=== PATIENT | female | born 1955 | race Caucasian/White ===

== ENCOUNTER → 2018-07-20 07:45 | Outpatient (CLI) | payer BC, SELFPAY ==
--- NOTE | 2018-07-20 07:59 | CT_ITS ---
CT lung screening EXAM: CT LUNG LOW DOSE WO CONTRAST HISTORY: 45 pack-year smoking history, asymptomatic for lung cancer ITS.REASON: NICOTINE DEPENDENCE ORDERING PHYSICIAN: Wilmar Franco MD PATIENT AGE: 62 years COMPARISON: None TECHNIQUE: The exam was performed on a GE Light Speed [address] scanner using 2.90 mGy CTDI. A low dose helical CT CHEST was performed on a multi-detector scanner. All CT scans at the facility use one or more dose reduction, viz: automated exposure control, ma/kV adjustment per patient size (including targeted exams where dose is matched to indication, i.e. head), or iterative reconstruction technique. The LDCT was performed in a facility that meets the criteria for the screening program. Data regarding this exam was submitted to ACR which is an approved registry. The order for this exam indicates that it came as a result of a lung cancer screening counseling shard decision-making visit that included all the elements required of such a visit including smoking cessation. The radiologist interpreting this exam meets the CMS criteria for the LDCT lung cancer screening program. The exam is reported using the Lung-RADS classification scale and reported to the ACR registry. NOTE: This study was performed for the specific purposes of lung cancer screening and is not an alternative to diagnostic chest CT. RADIATION DOSE: CTDI vol(CT dose Index-volume) = 2.90mG DLP (Dose Length Product) = 95.34 mGcm FINDINGS: Centrilobular emphysema with scattered areas of scarring and scattered calcified granulomas. Atelectasis or fibrosis is present in the lung bases. Small axillary lymph nodes and small mediastinal lymph nodes are present. There is minimal thickening of the pericardium. Upper abdominal images show small amount of air anterior to the left lobe of the liver possibly due to bowel interposition. CT abdomen may confirm. IMPRESSION: 1. Lung RADS Category: 2, benign 2. Other findings: Centrilobular emphysema. Air density anterior to the left lobe of the liver which may be due to bowel interposition in this nonacute exam and may be confirmed with CT abdomen if clinically warranted RECOMMENDATIONS: 12 month LDCT follow-up
--- NOTE | 2018-07-20 08:01 | XR_ITS ---
XR DEXA axial skeleton HISTORY: ITS.REASON: OSTEOPENIA ORDERING PHYSICIAN: Wilmar Franco MD PATIENT AGE: 62 years COMPARISON: None FINDINGS: The BMD measured at the Total Right femoral neck is 0.691 g/cm squared with a T score of -2.5. This is considered Osteoporotic according to the World Health Organization criteria. Fracture risk is High. Treatment is advised. The L1 L4 density has a T score of -2.3. IMPRESSION: Osteoporosis with high fracture risk. Treatment is advised. Suggest follow-up exam July 2019
== END ==
PROVIDERS: PCP Family Medicine; Visit Provider Family Medicine
DX: Z12.2 Encounter for screening for malignant neoplasm of respiratory organs (principal); Z87.891 Personal history of nicotine dependence; M85.89 Other specified disorders of bone density and structure, multiple sites
CPT/HCPCS: 77080

== ENCOUNTER → 2019-10-29 15:06 | Outpatient (CLI) | payer BC, SELFPAY ==
[2019-10-29 17:06] LABS: T4 (Thyroxine) 7.3 ug/dl (5.53-11.0)
[2019-10-29 18:14] LABS: 25-OH Vitamin D, Total 50.3 ng/mL (30-100)
[2019-10-31 09:12] LABS: Triiodothyronine (T3) Total 103 ng/dL (71-180)
[2019-10-31 10:59] LABS: Vitamin B12 435 pg/mL (232-1245)
== END ==
PROVIDERS: Visit Provider Clinical Nurse Specialist Psychiatric/Mental Health
DX: F33.1 Major depressive disorder, recurrent, moderate (principal)
CPT/HCPCS: 36415; 82306; 82607; 84436; 84443; 84480; 84481

== ENCOUNTER → 2020-10-21 15:35 | Outpatient (POV) | payer BC, SELFPAY | PROVIDERS: Visit Provider Dermatology | DX: Z00.00 Encounter for general adult medical examination without abnormal findings (principal) ==

== ENCOUNTER → 2020-10-24 15:03 | Outpatient (CLI) | payer BC, SELFPAY ==
--- NOTE | 2020-10-24 15:11 | US_ITS ---
PROCEDURE: US EXTREMITY LT LIMITED CLINICAL INDICATION: MASS OF LT SHOULDER COMPARISON: No exams were available for comparison FINDINGS: Ultrasound of the left shoulder at site of palpable abnormality shows no discrete cyst or solid mass. No focal fluid collection. No abnormal vascularity. If there is persistent concern clinically for a left shoulder mass, I would suggest MRI left shoulder with and without IV contrast. IMPRESSION: Normal ultrasound of the left shoulder region at site of palpable abnormality with no discrete cyst or solid mass identified. See comment above. Dictated by: Андрей Lopez MD 10/24/2020 16:42 Андрей Lopez MD in [place] 10/24/2020 16:42
== END ==
PROVIDERS: PCP Nurse Practitioner Family; Visit Provider Physician Assistant
DX: R22.30 Localized swelling, mass and lump, unspecified upper limb (principal)
CPT/HCPCS: 76882

== ENCOUNTER → 2020-12-10 13:36 | Outpatient (CLI) | payer BC, SELFPAY ==
--- NOTE | 2020-12-10 13:42 | XR_ITS ---
PROCEDURE: XR SHOULDER LT MIN 2V CLINICAL INDICATION: left shoulder pain COMPARISON: No exams were available for comparison FINDINGS: No fracture or dislocation. No lytic or blastic change. There is normal mineralization. The joint spaces are well-preserved. No significant degenerative/arthritic changes. No erosive changes evident. Other findings:Small subcortical cyst noted at the greater tuberosity region at 4 mm. Minimal sclerosis at the greater tuberosity level. IMPRESSION: No acute findings. Dictated by: Nimesh Menjivar MD 12/10/2020 15:06 Nimesh Menjivar MD in [place] 12/10/2020 15:06
== END ==
PROVIDERS: PCP Family Medicine; Visit Provider Orthopaedic Surgery
DX: M25.512 Pain in left shoulder (principal)
CPT/HCPCS: 73030

== ENCOUNTER → 2021-07-25 10:01 | Outpatient (CLI) | payer SELFPAY ==
[2021-07-25 10:59] LABS: Basophils # 0.1 K/mm3 (0-0.2); Basophils % 0.9 % (0.1-2.0); Eosinophils # 0.1 K/mm3 (0.0-0.4); Eosinophils % 1.7 % (0.1-12.0); Hematocrit 43.6 % (37.0-47.0); Lymphocytes # 2.4 K/mm3 (0.7-4.5); Lymphocytes % 32.1 % (10-50); Mean Corpuscular HGB Conc 32.1 g/dL (31.8-35.4); Mean Corpuscular Hemoglobin 31.8 pg (27.0-31.2); Mean Platelet Volume 8.8 fl (7.4-10.4); Monocytes # 0.5 K/mm3 (0.1-1.0); Monocytes % 5.9 % (1.7-9.3); Neutrophils # 4.5 K/mm3 (1.8-7.8); Neutrophils % 59.4 % (37.0-80.0); Platelet Count 344 K/mm3 (142-424); Red Blood Count 4.41 M/mm3 (4.20-5.40); Red Cell Distribution Width 14.5 % (11.5-17.5); White Blood Count 7.6 K/mm3 (4.8-10.8)
[2021-07-25 11:44] LABS: Hemoglobin A1C 5.5 % (4.0-6.0)
[2021-07-25 11:56] LABS: Alanine Aminotransferase 18 U/L (12-78); Albumin Level 4.1 g/dl (3.5-5.0); Albumin/Globulin Ratio 1.6 (1.1-1.8); Alkaline Phosphatase 81 U/L (38-126); Anion Gap 7.2 mEq/L (5-15); Aspartate Amino Transferase 26 U/L (14-36); Bilirubin,Direct 0.1 mg/dl (0.0-0.4); Bilirubin,Indirect 0.4 mg/dL (0.0-0.9); Bilirubin,Total 0.5 mg/dl (0.2-1.3); Bilirubin,Unconjugated 0.5 mg/dL (0.0-1.1); Blood Urea Nitrogen 17 mg/dl (7-17); Calcium 9.5 mg/dl (8.4-10.2); Carbon Dioxide 30 mmol/L (22.0-30.0); Chloride 105 mmol/L (98-107); Chol/HDL Ratio 2.3 (1-3.5); Cholesterol 170 mg/dl (140-200); Estimated Glomerular Filt Rate 101 ml/min (>60); GFR (African American) 122 ML/MIN (>60); Globulin 2.5 g/dL (1.3-3.2); Glucose 88 mg/dl (74-100); HDL Cholesterol 75 mg/dl (40-60); Potassium 5.2 mmoL/L (3.5-5.1); Sodium 137 mmol/L (136-145); Total Protein,Serum 6.6 g/dl (6.3-8.2); Triglycerides 74 mg/dl (30-150); VLDL Cholesterol 15 mg/dL (0-40)
[2021-07-25 12:07] LABS: Direct LDL Cholesterol 58.36 mg/dL (100-129); Valproic Acid, (Depakene) 19.9 ug/ml (50-100)
[2021-07-25 12:13] LABS: 25-OH Vitamin D, Total 64.2 ng/mL (30-100)
[2021-07-25 12:14] LABS: T4 (Thyroxine) 5.7 ug/dl (5.53-11.0)
[2021-07-25 12:28] LABS: Thyroid Stimulating Hormone 1.06 uIU/mL (0.465-4.68)
[2021-07-25 12:46] LABS: Vitamin B12 969 pg/mL (239-931)
[2021-07-25 18:03] LABS: Iron 170 ug/dL (37-170)
[2021-07-26 07:02] LABS: Prolactin 16.7 ng/mL (4.8-23.3)
== END ==
PROVIDERS: PCP Family Medicine; Visit Provider Registered Nurse Emergency
DX: F33.1 Major depressive disorder, recurrent, moderate (principal)
CPT/HCPCS: 36415; 80053; 80061; 80076; 80164; 82306; 82607; 83036; 83540; 84146; 84436; 84443; 85025

== ENCOUNTER → 2022-05-20 16:30 | Outpatient (CLI) | payer OTHER, SELFPAY ==
--- NOTE | 2022-05-20 | XR_ITS ---
PROCEDURE INFORMATION: Exam: XR Sacrum and Coccyx, 2 or More Views Exam date and time: 05/20/2022 4:42 PM Age: 66 years old Clinical indication: Pain in coccyx area; Additional info: Coccygeal pain TECHNIQUE: Imaging protocol: XR of the sacrum and coccyx, 2 or more views. COMPARISON: ABDPELW CT ABD PELVIS W/ CONTRAST 02/19/2016 9:37 AM FINDINGS: Bones/joints: Healed right pubic rami fractures. Grade 2 anterolisthesis of L5 over S1 has progressed attributed to a chronic bilateral pars defect. No visible acute fracture or dislocation. Soft tissues: Normal. IMPRESSION: Progression of anterolisthesis of L5 over S1 attributed to a chronic bilateral pars defect. No visible acute fracture or dislocation.
== END ==
PROVIDERS: PCP Physician Assistant; Visit Provider Physician Assistant
DX: M53.3 Sacrococcygeal disorders, not elsewhere classified (principal)
CPT/HCPCS: 72220

== ENCOUNTER → 2022-07-10 09:11 | Outpatient (CLI) | payer OTHER, SELFPAY ==
--- NOTE | 2022-07-10 09:14 | MR_ITS ---
PROCEDURE INFORMATION: Exam: MR Lumbar Spine Without Contrast Exam date and time: 07/10/2022 9:51 AM Age: 66 years old Clinical indication: Low back pain; Additional info: Lower back pain. TECHNIQUE: Imaging protocol: Magnetic resonance imaging of the lumbar spine without contrast. COMPARISON: XR SACRUM COCCYX MIN 2V 05/20/2022 4:42 PM FINDINGS: Bones/joints: Grade 2 anterolisthesis of L5 over S1 is re-identified attributed to a chronic bilateral pars defect. Focal retrolisthesis of L1 over L2 likely degenerative. Vertebral body heights are maintained. Discogenic changes noted at multiple levels. No marrow replacing process. Spinal cord: Conus medullaris and cauda equina nerve roots are unremarkable T12-L1: Central disc protrusion without significant spinal canal stenoses.There is severe bilateral neural foraminal narrowing. L1-L2: Diffuse disc bulge and facet arthropathy without significant spinal canal stenosis.There is severe bilateral neural foraminal narrowing. L2-L3: Diffuse disc bulge and facet arthropathy without significant spinal canal stenosis. There is moderate bilateral neural foraminal narrowing. L3-L4: Diffuse disc bulge and facet arthropathy produce mild spinal canal stenosis. There is moderate bilateral neural foraminal narrowing. L4-L5: Diffuse disc bulge and facet arthropathy without significant spinal canal stenosis. There is mild bilateral neural foraminal narrowing. L5-S1: Uncovering of the disc diffuse disc bulge and facet arthropathy without significant spinal canal stenosis.There is severe bilateral neural foraminal narrowing. Soft tissues: Unremarkable. IMPRESSION: Multilevel degenerative changes involving predominantly the neural foramina most significant at T12-L1 L1-L2 and L5-S1 producing high-grade stenoses. Grade 2 anterolisthesis of L5 over S1
--- NOTE | 2022-07-10 09:14 | MR_ITS ---
PROCEDURE INFORMATION: Exam: MR Pelvis Without Contrast Exam date and time: 07/10/2022 9:51 AM Age: 66 years old Clinical indication: Other: Tail bone pain; Additional info: Lumbar pain. Hurts to sit. TECHNIQUE: Imaging protocol: Magnetic resonance imaging of the pelvis without contrast. COMPARISON: ABDPELW CT ABD PELVIS W/ CONTRAST 02/19/2016 9:37 AM FINDINGS: Intraperitoneal space: Trace pelvic free fluid without identifiable source. Chronic grade 2 anterolisthesis of L5 over S1 attributed to a bilateral pars defect. Reproductive: Unremarkable. Bones/joints: No marrow replacing process. Soft tissues: Soft tissues are unremarkable. No decubitus ulcer. Stomach and bowel: Scattered colonic diverticula without acute inflammatory change. IMPRESSION: No marrow replacing process.
== END ==
LOC: RAD 09:11
PROVIDERS: PCP Orthopaedic Surgery; Visit Provider Orthopaedic Surgery
DX: M54.50 Low back pain, unspecified (principal); M53.3 Sacrococcygeal disorders, not elsewhere classified
CPT/HCPCS: 72148; 72195; 76376

== ENCOUNTER 2023-05-16 15:36 | Outpatient (CLI) | payer OTHER, SELFPAY ==
--- NOTE | 2023-05-16 15:46 | ECG_ITS ---
APPROVED REPORT Exam: Resting ECG HR:75 bpm ECG Measurements Heart Rate 75 AXES WI 172 P 83 QRSd 173 QRS 91 QT 415 T -9 QTc 444 Conclusion SINUS RHYTHM BORDERLINE RIGHT AXIS DEVIATION [QRS AXIS > 90] INTRAVENTRICULAR CONDUCTION DELAY [130+ ms QRS DURATION] ABNORMAL ECG UNCONFIRMED REPORT Electronically signed by : Dudley Nicholas MD 05/16/2023 17:46:28
--- NOTE | 2023-05-16 15:50 | XR_ITS ---
FINAL REPORT CLINICAL HISTORY: NEAR SYNCOPE smoker x 20 yrs FINDINGS: 2 views of the chest were obtained . The heart is normal in size. The mediastinum is within normal limits. The lungs are clear. There is no pneumothorax. Osseous structures are unremarkable. IMPRESSION: No acute cardiopulmonary process. Reviewed, Interpreted and Dictated by Mani Gilmore III, MD Transcribed by Susie Johnson Authenticated and [facility]
== END 2023-05-16 23:59 ==
PROVIDERS: PCP Nurse Practitioner Family; Visit Provider Nurse Practitioner Family
DX: R55 Syncope and collapse (principal)
CPT/HCPCS: 71046; 93005

== ENCOUNTER 2023-06-10 14:08 | Outpatient (CLI) | payer MEDICARE, SELFPAY ==
--- NOTE | 2023-06-10 14:10 | MM_ITS ---
PROCEDURE INFORMATION: Exam: MG Bilateral Screening 3D Mammography Exam date and time: 06/10/2023 2:21 PM Age: 67 years old Clinical indication: Screening. No family history of breast cancer. TECHNIQUE: Imaging protocol: Bilateral Screening tomosynthesis and 2D mammography including computer-aided detection (CAD) when performed. COMPARISON: 1. MG DMSB DIG MAMM-SCREEN OMAR 02/09/2016 10:23 AM 2. MG DMSB DIGITAL MAMM-SCREEN BILATERAL 08/29/2012 10:30 AM FINDINGS: MAMMOGRAPHY: Breast composition: The breasts are heterogeneously dense, which may obscure small masses. Mass: None. Architectural distortion: None. Calcifications: No suspicious calcifications. Asymmetric density: None. Skin thickening: None. Axillary adenopathy: None. IMPRESSION: No mammographic evidence of malignancy. Annual screening is recommended unless otherwise clinically indicated. ASSESSMENT: BI-RADS Category 1: Negative
== END 2023-06-10 23:59 ==
LOC: RAD 14:08
PROVIDERS: PCP Nurse Practitioner Family; Visit Provider Nurse Practitioner Family
DX: Z12.31 Encounter for screening mammogram for malignant neoplasm of breast (principal)
CPT/HCPCS: 77063; 77067

== ENCOUNTER 2023-06-29 13:22 | Outpatient (CLI) | payer MEDICARE, SELFPAY ==
--- NOTE | 2023-06-29 | CA_ITS ---
FINAL REPORT TECHNIQUE: Real-time imaging was performed of the extracranial carotid arteries in transverse and longitudinal planes with color duplex evaluation of blood flow velocity. Spectral analysis was performed. The cervicovertebral arteries were also examined. Stenosis evaluation based on elevated velocity criteria. CLINICAL HISTORY: Dizziness, Nicotine dependent FINDINGS: FINDINGS: RIGHT CAROTID: CCA PSV: 102 cm/sec ICA PSV: 125 cm/sec ECA PSV: 92 cm/sec ICA/CCA systolic flow velocity ratio: 1.2 Mild atherosclerotic plaque is noted. Narrowing is classified in the less than 50% category. LEFT CAROTID: CCA PSV: 74 cm/sec ICA PSV: 78 cm/sec ECA PSV: 114 cm/sec ICA/CCA systolic flow velocity ratio: 1.1 Mild atherosclerotic plaque is noted. Narrowing is classified in the less than 50% category. VERTEBRALS: Vertebral arteries are patent with antegrade flow and expected spectral waveforms. IMPRESSION: Less than 50% bilateral carotid artery stenosis. Patent vertebral arteries. Reviewed, Interpreted and Dictated by Trenton Nassar MD Transcribed by Hanna Ornelas Authenticated and [facility]
--- NOTE | 2023-06-29 13:51 | CT_ITS ---
FINAL REPORT CLINICAL HISTORY: H/O TOBACCO USE current smoker 1ppd x 48 years COMPARISON: 07/20/2018 FINDINGS: Axial images were obtained from the lung apex to the mid abdomen by computed tomography. Low-dose protocol was utilized. CTDl vol(mGy): 2.90 DLP (mGy-cm): 101.07 FINDINGS: There are multiple small axillary and mediastinal lymph nodes. The heart size is normal. Trace. Radial effusion is present. There are no pleural effusions. Limited images of the upper abdomen are unremarkable. Lung window images demonstrate scarring in the lower lobes. There is a calcified granuloma in the periphery of the right lung base. There is no suspicious pulmonary mass or nodule. IMPRESSION: Lung RADS category 1S. Recommend 12 month follow-up low-dose chest CT. Modifier S: Mild axillary and mediastinal adenopathy which appears stable compared to the prior exam. Reviewed, Interpreted and Dictated by Trenton Nassar MD Transcribed by Hanna Ornelas Authenticated and [facility]
== END 2023-06-29 23:59 ==
LOC: RT 13:24
PROVIDERS: PCP Nurse Practitioner Family; Visit Provider Nurse Practitioner Family
DX: R42 Dizziness and giddiness (principal); Z87.891 Personal history of nicotine dependence
CPT/HCPCS: 71271; 93880

== ENCOUNTER 2023-09-14 15:34 | Outpatient (CLI) | payer MEDICARE, SELFPAY ==
--- NOTE | 2023-09-14 15:39 | XR_ITS ---
FINAL REPORT TECHNIQUE: Bone densitometry calculations of the lumbar spine and left hip were obtained. CLINICAL HISTORY: OSTEOPOROSIS FINDINGS: Using L1-4, the bone mineral density of the spine is 0.778 g/cm2, corresponding to T-score of -2.4. Using the left hip, the bone mineral density of the femoral neck is 0.586 g/cm2, corresponding to a T-score of -2.9. Using the right hip, the bone mineral density of the femoral neck is 0.513 g/cm2, corresponding to a T-score of -3.0. NOTE: T-score: Standard deviation compared with peak bone mass of young adult mean. *Following the recommendations of the International Society of Bone Densitometry, classification of hip BMD is based on the lower of two T-scores; total hip or femoral neck. IMPRESSION: Osteoporosis: Lowest T-score is at or below -2.5. This patient''s T-score meets the World Health Organization criteria for osteoporosis. FRAX was not reported because some of the T-scores are at or below-2.5. Reviewed, Interpreted and Dictated by Mani Gilmore III, MD Transcribed by Ashley Damon Authenticated and [facility] [place] [place]
== END 2023-09-14 23:59 | disposition home or self-care (01) ==
LOC: RAD 15:34
PROVIDERS: PCP Nurse Practitioner Family; Visit Provider Family Medicine
DX: Z13.820 Encounter for screening for osteoporosis; M81.0 Age-related osteoporosis without current pathological fracture
CPT/HCPCS: 77080

== ENCOUNTER 2023-10-06 10:08 | Day surgery (SDC) | payer MEDICARE, SELFPAY ==
[2023-10-06 10:17] VITALS: BMI 21.2
[2023-10-06 10:23] VITALS: BP 127/75; PULSE 89; RESP 18; TEMP 36.6; O2SAT 97
[2023-10-06] MEDS: LACTATED RINGERS 1000ML 1,000 ML 100 ML IV (10:28)
--- NOTE | 2023-10-06 10:34 | P.PNANES_ITS ---
[facility] Disclaimer: The information contained in this section may have been updated after the patient was seen, as this information can be updated by other users. Medical History (Updated 10/06/23 @ 10:22 by Kait Daniels RN) Arrhythmia Surgical History (Updated 10/06/23 @ 10:22 by Kait Daniels RN) History of tubal ligation Family History (Updated 10/06/23 @ 10:22 by Kait Daniels RN) Other No significant family history Social History (Updated 10/06/23 @ 10:23 by Kait Daniels RN) Smoking Status: Current every day smoker alcohol intake: never substance use type: denies use current occupational status: employed Travel in the last 8 weeks: None [facility] Anesthesia Checklist Patient Identification Patient Identification: Verbal (Name & ) Structural Data Admitted From: Home Planned Operative Procedure/s: colonoscopy Consent for Planned Operative Procedure(s) Verified: Yes Airway Assessment Mallampati Score:: Class II C-Spine Mobility Assessed: Yes TMJ Mobility Assessed: Yes Dentition: Edentulous Neurological Assessment Level of Consciousness: Awake, Alert and Appropriate Anesthesia Plan Anesthesia Risk discussed: Yes Anesthesia Plan: Verified ASA Class: III Anesthesia Type: MAC
[2023-10-06 10:37] VITALS: O2SAT 97
--- NOTE | 2023-10-06 10:53 | HMH.SCOPE ---
Procedure: Date: 10/06/23 Patient Date of :: 1955 Procedure Performed:: Screening colonoscopy Indications:: Colon cancer screening Performing Provider:: Anjel Nobles MD Referring Provider:: Ashley Tay APRN Sedation:: Propofol Procedure:: After placing the patient in the left lateral decubitus position, the colonoscopy was gently inserted into the rectum and under direct visualization advanced to the cecum which was identified by transillumination in the right lower quadrant, identification of the ileocecal valve, appendiceal orifice, and cecal strap. Color, texture, mucosa, and anatomy of the colon were carefully examined with the scope. Findings:: Anal canal: normal Rectum: normal Sigmoid colon: normal without polyps or inflammatory changes Descending colon: normal without polyps or inflammatory changes Splenic flexure: normal Transverse colon: normal without polyps or inflammatory changes Hepatic flexure: normal Ascending colon: normal without polyps or inflammatory changes Cecum: normal Terminal ileum: not visualized Impression: Normal colonoscopy Recommendations:: Follow up examination in about TEN years or so, sooner if clinically indicated. Complications:: None Estimated blood obtained (mL): 0 Colonoscopy Component Colonoscopy Component Was a colonoscopy performed during today's procedure?: Yes Recommended follow up colonoscopy of at least 10 years?: Yes
[2023-10-06 10:55] VITALS: BP 90/53; PULSE 71; RESP 18; TEMP 36.8; O2SAT 93
[2023-10-06 11:05] VITALS: BP 90/52; PULSE 71; RESP 18; O2SAT 95
[2023-10-06 11:15] VITALS: BP 100/56; PULSE 72; RESP 18; O2SAT 95
[2023-10-06 12:00] VITALS: BP 111/58; PULSE 73; RESP 18; O2SAT 96
== END 2023-10-06 12:00 | disposition home or self-care (01) ==
PROVIDERS: PCP Nurse Practitioner Family; Visit Provider Internal Medicine Gastroenterology
PROC: (CPT G0121; principal; 2023-10-06 11:30)
DX: Z12.11 Encounter for screening for malignant neoplasm of colon (principal)
CPT/HCPCS: G0121; J7120

== ENCOUNTER 2023-11-23 12:42 | Outpatient (CLI) | payer MEDICARE, SELFPAY ==
[2023-11-23 14:15] LABS: Barbiturates Screen,Urine Negative ng/ml (<200)
[2023-11-23 14:16] LABS: Amphetamine/Metha Screen,Urine Negative ng/ml (<1000); Benzodiazepines Screen,Urine Negative ng/ml (<200)
[2023-11-23 14:17] LABS: Cannabinoid Screen,Urine Negative ng/ml (<50)
[2023-11-23 14:18] LABS: Cocaine Screen,Urine Negative ng/ml (<300); Methadone Screen,Urine Negative ng/ml (<300)
[2023-11-23 14:19] LABS: Opiate Screen,Urine Negative ng/ml (<300)
[2023-11-23 14:20] LABS: Phencyclidine Screen,Urine Negative ng/ml (<25)
== END 2023-11-23 23:59 | disposition home or self-care (01) ==
LOC: LAB 12:44
PROVIDERS: PCP Nurse Practitioner Family; Visit Provider Registered Nurse Emergency
DX: Z79.899 Other long term (current) drug therapy (principal); F41.1 Generalized anxiety disorder; F33.1 Major depressive disorder, recurrent, moderate
CPT/HCPCS: 80307

== ENCOUNTER 2024-05-21 01:47 | Emergency (ER) | payer MEDICARE, SELFPAY ==
[2024-05-21 01:47] VITALS: BP 126/78; PULSE 79; RESP 18; TEMP 36.4; O2SAT 95; BMI 20.9
--- NOTE | 2024-05-21 01:59 | ED_ITS ---
Discharge Plan Disposition Patient Disposition: Home, Self-Care Prescriptions Prescriptions: New sulfamethoxazole-trimethoprim 800-160 mg tablet 1 tab PO BID 7 Days Qty: 14 0RF No Action trazodone 100 mg tablet 100 mg PO HS PRN (Reason: Sleep) sertraline [Zoloft] 100 mg tablet 100 mg PO DAILY alendronate 35 mg tablet 35 mg PO WEEKLY omeprazole 40 mg capsule,delayed release(DR/EC) 40 mg PO DAILY ropinirole 3 mg tablet 3 mg PO HS Rx Instructions: administer 1-3 hours before bedtime aspirin [Adult Aspirin Regimen] 81 mg tablet,delayed release (DR/EC) 81 mg PO DAILY gabapentin [Neurontin] 300 mg capsule 300 mg PO TID ergocalciferol (vitamin D2) 50 mcg (2,000 unit) tablet 50 mcg PO DAILY modafinil [Provigil] 100 mg Tablet 100 mg PO DAILY alendronate 70 mg Tablet 70 mg PO WEEKLY Referrals Follow up/Referrals: Ashley Tay APRN [Primary Care Provider] - See instructions Activity Restrictions/Add. Instructions Additional Instructions/Restrictions: Please monitor the area and return if it continues to worsen. Please take antibiotics as prescribed. Please follow-up with your primary care provider. Please return to the emergency department if you develop any new or worsening symptoms or become concerned for your health. Clinical Impressions Clinical Impression: Cellulitis of foot Print Language Print Language: Azeri Discharge ED Provider: Adam Huerta Adult HPI General Chief complaint: PAIN Stated complaint: Right foot pain Time Seen by Provider: 05/21/24 01:50 History of Present Illness HPI narrative: 68-year-old male with history of osteoporosis, depression, and smoking presents for right foot pain. She reports she woke up with severe right foot pain. Denies any trauma beforehand. Denies any history of clots, no history of infection. Reports pain with range of motion. 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 She came in at 5 PM and she reports that both her hands and feet were very cold but this is normal for her. The right foot was not more exposed or wet or cold than the other foot or her hands. She reports that when she went to bed her feet were rewarmed and felt totally normal. She has never had anything like this happen before. No history of gout. Denies any history of clots, no pain at the ankle or proximal. No fever, chills, systemic symptoms Related Data Home Medications ?Medication ?Instructions ?Recorded ?Confirmed alendronate 35 mg tablet 35 mg PO WEEKLY 12/10/20 10/06/23 aspirin 81 mg tablet,delayed 81 mg PO DAILY 12/10/20 10/06/23 release (Adult Aspirin Regimen) ergocalciferol (vitamin D2) 50 mcg 50 mcg PO DAILY 12/10/20 10/06/23 (2,000 unit) tablet gabapentin 300 mg capsule 300 mg PO TID 12/10/20 10/06/23 (Neurontin) omeprazole 40 mg capsule,delayed 40 mg PO DAILY 12/10/20 10/06/23 release ropinirole 3 mg tablet 3 mg PO HS 12/10/20 10/06/23 sertraline 100 mg tablet (Zoloft) 100 mg PO DAILY 12/10/20 10/06/23 trazodone 100 mg tablet 100 mg PO HS PRN Sleep 12/10/20 10/06/23 alendronate 70 mg tablet 70 mg PO WEEKLY 09/30/23 10/06/23 modafinil 100 mg tablet (Provigil) 100 mg PO DAILY 09/30/23 10/06/23 Previous Rx's ?Medication ?Instructions ?Recorded sulfamethoxazole 800 1 tab PO BID 7 days #14 tabs 05/21/24 mg-trimethoprim 160 mg tablet Allergies Allergy/AdvReac Type Severity Reaction Status Date / Time amoxicillin Allergy Intermediate Verified 10/06/23 10:18 [facility] Disclaimer: The information contained in this section may have been updated after the patient was seen, as this information can be updated by other users. Medical History (Updated 05/21/24 @ 02:50 by Adam Huerta MD) Arrhythmia Surgical History (Updated 10/06/23 @ 10:22 by Kait Daniels RN) History of tubal ligation Family History (Updated 10/06/23 @ 10:22 by Kait Daniels RN) Other No significant family history Social History (Updated 10/06/23 @ 10:35 by Justin Lorenzana CRNA) Smoking Status: Current every day smoker alcohol intake: never substance use type: denies use current occupational status: employed Travel in the last 8 weeks: None Have you lived/traveled outside [place] in past 30 days?: No Contact w/someone who lives/traveled outside US past 30 days?: No Exposure to someone with infectious disease in past 14 days?: No Do you have a fever (greater than 100.4 F or 38 C)?: No Have you tested positive for COVID-19: No Exposed to someone with COVID-19 in past 14 days?: No Do you have a sore throat?: No Do you have a cough?: No Do you have any weakness?: No Do you have any diarrhea?: No Are you experiencing any unusual bleeding?: No Do you have any muscle aches/pain?: No Do you have any abdominal pain?: No Are you experiencing loss of taste or smell?: No Other Medical History Have you received the Pneumonia Vaccine: No ROS Obtained: Yes All systems reviewed & no additional complaints except as documented Physical Exam General General appearance: alert and anxious Head Head exam: atraumatic and normocephalic Eye Eye exam: Present normal appearance, PERRL and EOMI ENT ENT exam: Present normal oropharynx and normal external ear exam Neck Neck exam: Present normal inspection and full ROM Chest Chest inspection: Present normal inspection and symmetric chest wall rise; Absent tenderness Respiratory Respiratory exam: Present normal lung sounds bilaterally; Absent respiratory distress Cardiovascular Cardiovascular exam: Present regular rate and normal rhythm Abdominal Exam Abdominal exam: Present soft; Absent distention, tenderness or guarding Extremities Exam Extremities exam: Present normal capillary refill and other (There is erythema and mild soft tissue swelling of the right dorsal midfoot distally to the toes. No evidence of laceration or abrasion or bruising. No tenderness over the right first MCP. Significant tenderness over the midfoot. Pain with range of motion of the foot. Normal pulses/sensation); Absent calf tenderness (No erythema proximal to the midfoot. No swelling of the calf or tenderness in the popliteal fossa) Back Exam Back exam: Present normal inspection; Absent tenderness Neurological Exam Neurological exam: Present alert and oriented X3; Absent motor sensory deficit Psychiatric Psychiatric exam: Present normal affect and normal mood Skin Skin exam: Present warm, dry and normal color Lymphatic Lymphatic Findings: no adenopathy Medical Decision Making Medical Records Medical records reviewed: Yes I reviewed the patient's medical records. Screening: Per USPSTF and CDC recommendations, given the prevalence of disease in our region, it is our hospital?s policy to screen for HIV and viral Hepatitis for all patients aged 18 and over and those with ongoing risk factors. Evin Inquiry Pt receiving controlled substance: No Evin was queried for this patient: No Vital Signs: 05/21/24 01:47 05/21/24 03:00 Temperature 97.6 F 98.2 F Temperature Source Oral Oral Pulse Rate 96 H Pulse Rate [Right] 79 Respiratory Rate 18 20 Blood Pressure 126/78 Blood Pressure [Right Arm] 126/78 Blood Pressure Mean [Right Arm] 94 02 Sat by Pulse Oximetry 95 Oxygen Delivery Method Room Air Room Air Lab Data Lab results reviewed: Yes I reviewed the patient's lab results. Lab Results 05/21/24 02:15: WBC 12.6 H, RBC 4.42, Hgb 13.5, Hct 40.7, MCV 92.1, MCH 30.5, MCHC 33.2, RDW 13.3, Plt Count 315, MPV 9.6, Neut % (Auto) 71.3, Lymph % (Auto) 20.3, [place] % (Auto) 6.6, Eos % (Auto) 1.0, Baso % (Auto) 0.6, Neut # (Auto) 8.9 H, Lymph # (Auto) 2.6, [place] # (Auto) 0.8, Eos # (Auto) 0.1, Baso # (Auto) 0.1, ESR 4, Sodium 139, Potassium 4.0, Chloride 106, Carbon Dioxide 25, Anion Gap 12.0, BUN 20 H, Creatinine 0.60, Estimated Creat Clear 52, Estimated GFR 100, Est GFR ( Amer) 121, Glucose 87, Uric Acid 3.9, Calcium 9.7, Total Bilirubin 0.4, AST 37 H, ALT 23, Alkaline Phosphatase 93, C-Reactive Protein 2.5, Total Protein 7.1, Albumin 4.4, Globulin 2.7, Albumin/Globulin Ratio 1.6, HCV Ab DESTINY w/Rflx PCR Qn Negative, HIV Ag/Ab Combo Qual Negative 05/21/24 02:15 05/21/24 02:15 Orders (Tests/Meds): ED MEDICATIONS Discontinued Medications Generic Name Dose Route Start Last Admin Trade Name Freq PRN Reason Stop Dose Admin Acetaminophen 1,000 mg 05/21/24 02:02 05/21/24 02:29 Acetaminophen 500mg Tab PO 05/21/24 02:03 1,000 mg ONCE ONE Administration Ketorolac Tromethamine 15 mg 05/21/24 02:02 05/21/24 02:29 Ketorolac 30mg/Ml Vial IV 05/21/24 02:03 15 mg ONCE ONE Administration Trimethoprim/Sulfamethoxazole 1 each 05/21/24 02:50 05/21/24 02:52 Sulfa/Trimethoprim 1 Tablet PO 05/21/24 02:51 1 each ONCE ONE Administration ORDERS Category Date Time Status Foot XR right minimum 3 views [XR foot RT min 3V] Stat Exams 05/21/24 01:59 Completed CBC w/Auto Diff [Complete Blood Count Auto Diff] Stat Lab 05/21/24 02:15 Completed CMP [Comprehensive Metabolic Panel] Stat Lab 05/21/24 02:15 Completed CRP [C-Reactive Protein] Stat Lab 05/21/24 02:15 Completed ESR [Erythrocyte Sedimentation Rate] Stat Lab 05/21/24 02:15 Completed HIV Combo Stat Lab 05/21/24 02:15 Completed Hepatitis C Ab Qual. W/ RFX Stat Lab 05/21/24 02:15 Completed Uric Acid Stat Lab 05/21/24 02:15 Completed Blood Culture Stat Micro 05/21/24 02:02 Received Medical Decision Narrative: 68-year-old female with history of osteoporosis depression smoking for right foot pain upon waking. History was obtained via interactive discussion with patient. On arrival, patient is [afebrile, hemodynamically stable, satting appropriately, alert, oriented x4, GCS 15], moving all extremities spontaneously. Full physical exam performed and significant for findings as documented above. Differential includes but is not limited to cellulitis, frostbite, gout, necrotizing/deep space infection, arterial versus venous insufficiency. Patient was given Tylenol and Toradol for symptomatic management and correction of underlying abnormalities. Workup initiated including CBC CMP ESR CRP blood cultures and radiographs of the foot. Based on history, frostbite is a possibility but does not make sense timing corado. No evidence of arterial or venous insufficiency on exam and no history of such. Patient has no history of gout and has no tenderness or specific swelling over the first MTP. No skin discoloration, crepitus, no skin lesion and no history of diabetes to suggest deep space infection. On re-evaluation, patient [remains afebrile, HD stable.] Laboratory workup independently interpreted by me and significant for minimal leukocytosis, normal CMP, normal inflammatory markers Imaging independently interpreted by me and significant for no evidence of acute bony injury. See radiology read for full review of final results. Admission for IV antibiotics was considered, but deemed unnecessary due to history and exam. Given patient history, exam and workup, patient's presentation most likely represents cellulitis, could possibly represent mild frostbite. I had extensive discussion with patient regarding her presentation. Given the uncertainty surrounding underlying pathology and the possibility of more severe infection, I offered her admission for IV antibiotic therapy and further assessment. She reports she would prefer to trial oral antibiotics and follow-up. Patient was given dose of Bactrim and discharged in stable condition with prescription for Bactrim and return precautions.. Procedures Risk/Benefits of Procedure(s) Were Explained: Yes Critical Care Critical Care Time Critical Care Time: No
--- NOTE | 2024-05-21 01:59 | XR_ITS ---
PROCEDURE INFORMATION: Exam: XR Right Foot Exam date and time: 05/21/2024 2:13 AM Age: 68 years old Clinical indication: Pain; Edema; Location not specified; Foot; Right; Additional info: Foot redness and pain TECHNIQUE: Imaging protocol: Radiologic exam of the right foot. Views: 3 or more views. COMPARISON: No relevant prior studies available. FINDINGS: Bones/joints: Multiple views were obtained. The osseous structures appear intact with no evidence of acute fracture, dislocation, or malalignment. Joint spaces are preserved. No abnormal bone density or destructive lesions are noted. Soft tissues: Soft tissue swelling is observed, and further clinical correlation is advised. IMPRESSION: At the time of imaging, the skeletal radiograph demonstrates no acute osseous abnormalities but does show soft tissue swelling.
[2024-05-21 02:27] LABS: Basophils # 0.1 K/mm3 (0-0.2); Basophils % 0.6 % (0.1-2.0); Eosinophils # 0.1 K/mm3 (0.0-0.4); Hematocrit 40.7 % (37.0-47.0); Hemoglobin 13.5 g/dL (12.2-16.2); Lymphocytes # 2.6 K/mm3 (0.7-4.5); Lymphocytes % 20.3 % (10-50); Mean Corpuscular HGB Conc 33.2 g/dL (31.8-35.4); Mean Corpuscular Hemoglobin 30.5 pg (27.0-31.2); Mean Corpuscular Volume 92.1 fl (81-99); Mean Platelet Volume 9.6 fl (7.4-10.4); Monocytes # 0.8 K/mm3 (0.1-1.0); Monocytes % 6.6 % (1.7-9.3); Neutrophils # 8.9 K/mm3 (1.8-7.8); Neutrophils % 71.3 % (37.0-80.0); Platelet Count 315 K/mm3 (142-424); Red Blood Count 4.42 M/mm3 (4.20-5.40); Red Cell Distribution Width 13.3 % (11.5-17.5); White Blood Count 12.6 K/mm3 (4.8-10.8)
[2024-05-21] MEDS: KETOROLAC 30MG/ML VIAL 15 MG IV (02:29)
[2024-05-21] MEDS: ACETAMINOPHEN 500MG TAB 1000 MG PO (02:29)
[2024-05-21 02:37] LABS: Alanine Aminotransferase 23 U/L (12-78); Albumin Level 4.4 g/dl (3.5-5.0); Albumin/Globulin Ratio 1.6 (1.1-1.8); Alkaline Phosphatase 93 U/L (38-126); Aspartate Amino Transferase 37 U/L (14-36); Bilirubin,Total 0.4 mg/dl (0.2-1.3); Blood Urea Nitrogen 20 mg/dl (7-17); Calcium 9.7 mg/dl (8.4-10.2); Carbon Dioxide 25 mmol/L (22.0-30.0); Chloride 106 mmol/L (98-107); Creatinine Clearance Estimated 52 mL/min (50-200); Estimated Glomerular Filt Rate 100 ml/min (>60); GFR (African American) 121 ML/MIN (>60); Globulin 2.7 g/dL (1.3-3.2); Glucose 87 mg/dl (74-100); Sodium 139 mmol/L (136-145); Total Protein,Serum 7.1 g/dl (6.3-8.2); Uric Acid 3.9 mg/dl (2.5-6.2)
[2024-05-21 02:42] LABS: C-Reactive Protein 2.5 mg/L (0-4)
[2024-05-21] MEDS: SULFA/TRIMETHOPRIM 1 TABLET 1 EACH PO (02:52)
[2024-05-21 02:57] LABS: Erythrocyte Sedimentation Rate 4 mm/hr (0-30)
[2024-05-21 03:00] VITALS: BP 126/78; PULSE 96; RESP 20; TEMP 36.8; O2SAT 98
[2024-05-21 03:29] LABS: HIV Combo NEGATIVE (Negative)
[2024-05-21 03:37] LABS: Hepatitis C Ab Qual. W/ RFX NEGATIVE (Negative)
== END 2024-05-21 03:01 | disposition home or self-care (01) ==
PROVIDERS: Emergency Provider Emergency Medicine; PCP Nurse Practitioner Family
DX: L03.115 Cellulitis of right lower limb (principal); M79.671 Pain in right foot
CPT/HCPCS: 73630; 80053; 84550; 85025; 85651; 86140; 86803; 87040; 87389; 96374; 99283; J1885

== ENCOUNTER 2024-08-06 11:42 | Outpatient (CLI) | payer MEDICARE, SELFPAY ==
--- NOTE | 2024-08-06 11:59 | ECG_ITS ---
APPROVED REPORT Exam: Resting ECG HR:72 bpm ECG Measurements Heart Rate 72 AXES TX 177 P 69 QRSd 173 QRS 147 QT 449 T 48 QTc 472 Conclusion SINUS RHYTHM WITH OCCASIONAL VENTRICULAR PREMATURE COMPLEXES RIGHT AXIS DEVIATION [QRS AXIS > 100] LEFT BUNDLE BRANCH BLOCK [120+ ms QRS DURATION, 80+ ms Q/S IN V1/V2, 85+ ms R IN I/aVL/V5/V6] ABNORMAL ECG UNCONFIRMED REPORT Electronically signed by : Dudley Nicholas MD 08/07/2024 08:07:10
== END 2024-08-06 23:59 | disposition home or self-care (01) ==
LOC: RT 11:43
PROVIDERS: PCP Nurse Practitioner Family; Visit Provider Nurse Practitioner Family
DX: R55 Syncope and collapse (principal)
CPT/HCPCS: 93005; 93225; 93227

== ENCOUNTER 2024-08-09 07:29 | Outpatient (CLI) | payer MEDICARE, SELFPAY ==
--- NOTE | 2024-08-09 | CA_ITS ---
FINAL REPORT CLINICAL HISTORY: SYNCOOPE, SMOKER COMPARISON: None FINDINGS: RIGHT CAROTID: CCA PSV -90 cm/sec ICA PSV -128 cm/sec ICA/CCA PSV ratio -1.4. Comments: Minimal soft plaque disease is noted. LEFTCAROTID: CCA PSV -72. cm/sec ICA PSV -69. cm/sec ICA/CCA PSV ratio -1.0. Comments: Minimal soft plaque disease is noted. Antegrade flow is seen within the vertebral arteries. IMPRESSION: Carotid stenosis classified less than 50%, with minimal soft plaque disease noted bilaterally. Reviewed, Interpreted and Dictated by Wilmar Parkinson MD Transcribed by Nancy Anders Authenticated and [facility]
== END 2024-08-09 23:59 | disposition home or self-care (01) ==
LOC: RT 07:29
PROVIDERS: PCP Nurse Practitioner Family; Visit Provider Nurse Practitioner Family
DX: R55 Syncope and collapse (principal); I65.23 Occlusion and stenosis of bilateral carotid arteries
CPT/HCPCS: 93880

== ENCOUNTER 2024-08-14 10:51 | Outpatient (CLI) | payer MEDICARE, SELFPAY ==
--- OUTSIDE RECORDS SUMMARY | 2024-08-16 21:07 | XMS_ITS | Clinical Summary ---
Author Organization [facility] , [facility] Address [address] [place] [address] Phone Care Team Providers Care Wellness Specialist Name Role Phone [facility] Unavailable Unav devikaable Ricardo Claros MD Unavailable [phone] Reason for Visit and Chief Complaint The Chief Complaint is: Low back pain Problems Includes: Problems addressed during this encounter and other active Problems Current Visit Onset Date Resolved Date Provider Darío ramirez Status Lower Back Pain 06/28/2022 Danny Lundy PA-C A ctive Last Documented On 3 10:01AM ; [facility], [facility] Plan of Treatment Patient was seen by myself Danny Lundy PA-C. Patient will follow up as needed for now at some point she may need to consider surgery she is not wanting to do that right now if she wants to consider surgery at some point she would need to come back to see us. - Last Documented On 08/29/2022 1:11PM ; [facility] Instructions to patient Intervention and counseling on cessation of tobacco use Last Documented On 3 10:18AM ; [facility], [facility] Assessments Includes: Assessments from this encounter Findings L5-S1 spondylolisthesis grade 2 - Last Documented On 08/29/2022 1:11PM ; [facility], [facility] Instructions Includes: Instructions from this encounter Instructions to patient Intervention and counseling on cessation of tobacco use Last Documented On 3 10:18AM ; [facility], [facility] Medical Equipment - Implanted Devices Includes: Current Devices No Medical Equipment Recorded Medications Includes: Medications discussed during this encounter and other current Medications Current Medications (continue as prescribed) ARIPiprazole 5 MG Oral Tablet 06/08/2022 Provider: Diagnosis: Last Documented On 3 10:05AM By Ailyn Schmitz ; [facility], [facility] Divalproex Sodium ER 500 MG Oral Tablet Extended Release 24 Hour 06/08/2022 Provider: Diagnosis: Last Documented On 3 10:05AM By Ailyn Schmitz ; [facility], [facility] traZODone HCl 100 MG Oral Tablet 06/05/2022 Provider : Diagnosis: Last Documented On 3 10:05AM By Ailyn Schmitz ; [facility], [facility] rOPINIRole HCl 3 MG Oral Tablet 06/02/2022 Provider: Diagnosis: Last Documented On 3 10:05AM By Ailyn Schmitz ; [facility], [facility] Past Medications on file Meloxicam 15 MG Oral Tablet 09/20/2022 - 11/19/2022 Pr ovider: Ricardo Claros MD Diagnosis: Take one tablet my mouth once a day Last Documented On 3 2:46PM By Phylicia Bailon ; [facility], [facility] Methocarbamol 750 MG Oral Tablet 09/20/2022 - 11/20/19 Provider: Ricardo Claros MD Diagnosis: Take 1 tablet every 8 hrs prn pain Last Documented On 3 2:46PM By Phylicia Bailon ; [facility], [facility] Meloxicam 15 MG Oral Tablet 07/15/2022 - 09/13/2022 Pr ovider: Ricardo Claros MD Diagnosis: Take one tablet my mouth once a day Last Documented On 3 1:46PM By Phylicia Bailon ; [facility], [facility] Methocarbamol 750 MG Oral Tablet 07/15/2022 - 09/14/19 Provider: Ricardo Claros MD Diagnosis: Take 1 tablet every 8 hrs prn pain Last Documented On 3 1:46PM By Phylicia Bailon ; [facility], [facility] Medications Administered Includes: Administered Medications from this encounter No Administered Medications Recorded Vital Signs Includes: Vital Signs from this encounter Vital Name 08/26/2022 10:18A Height (in) 65 Weight (lb) 125 Body Mass Index 20.8 Body Surface Area 1.6 Note: mg Last Documented: On 08/26/2022 10:18A M ; [facility], [facility] Results Includes: Results discussed during this encounter No Results Recorded For Specified Dates History of Present Illness Includes: History of Present Illness from this encounter HPI Melissa Fagan is a 66 year old female. - Allergy list reviewed - Problem list reviewed - Medication list reviewed Patient is here today for follow-up of her L5-S1 spondylolisthesis she says she is doing about the same may feel little bit better mainly just back pain at this point time sometimes she gets some leg pain with that. She has not had an opportunity to get to physical therapy due to work. She is not wanting to do any surgery with this presently. Social History Description Last Updated Tobacco use 06/28/2022 Last Documented On 3 10:17AM ; [facility], [facility] Caffeine use 06/28/2022 Last Documented On 3 10:17AM ; [facility], [facility] Exercising regularly 06/28/2022 Last Documented On 3 10:17AM ; [facility], [facility] No recent change in diet 06/28/2022 Last Documented On 3 10:17AM ; [facility], [facility] Not using alcohol 06/28/2022 Last Documented On 3 10:17AM ; [facility], [facility] Not using drugs 06/28/2022 Last Documented On 3 10:17AM ; [facility] Yes, current smoker. 06/28/2022 Last Documented On 3 10:17AM ; [facility], [facility] Smoking Status Unknown Procedures and Surgical History Includes: Procedures from this encounter Procedures Code Diagnosis Performing Provider Service L ocation Service Date intervention and counseling on cessation of tobacco use 4000F Last Documented On 3 10:18AM ; [facility], [facility] use of tobacco assessment performed 1000F Last Documented On 3 10:17AM ; [facility], [facility] Medical History Includes: Medical History addressed during this encounter Description Last Updated History of depression 06/28/2022 Last Documented On 3 10:17AM ; [facility], [facility] Family History Includes: Family History addressed during this encounter Description Last Updated Sor[place] history of thromboembolic diseas e 08/26/2022 Last Documented On 3 1:11PM ; [facility] Family history of heart disease 06/28/19 23 Last Documented On 3 10:17AM ; [facility] Review of Systems Includes: Review of Systems from this encounter Systemic: No symptoms, not feeling tired, no recent weight loss, and no recent weight gain. Head: Headache, headache, and sinus pain. Eyes: No vision problems and no Cataracts. Glasses/Contacts. No Glaucoma. Otolaryngeal: No hearing loss and no tinnitus. Cardiovascular: No chest pain or discomfort, no palpitations, no Hypertension, and no High Cholesterol. Pulmonary: No daytime asthma symptoms and no chronic cough. No wheezing. Gastrointestinal: Heartburn and heartburn. No abdominal pain. Indigestion and Acid Reflux. No Peptic Ulcer, no GI Stomach Bleed, and no Ulcers. Endocrine: No hot flashes, no muscle weakness, no Diabetes, no Hypothyroid, and no Hyperthyroid. Hematologic: No easy bleeding, no tendency for easy bruising, and no Anemia. Musculoskeletal: No Arthritis and no lower back pain. No soft tissue swelling. Pain localized to one or more joints. Neurological: No dizziness, no convulsions, and no numbness. Psychological: Anxiety, anxiety, emotional lability, depression, and depression. No insomnia. Crying for no reason. Skin: No dry skin. No Ulcers, no Scars, and no rash. Allergic and Immunologic: No complaint of seasonal allergic reaction. Mental Status Includes: Mental Status from this encounter Description Anxiety Functional Status Includes: Functional Status from this encounter No Functional Status Recorded Physical Exam Includes: Physical Exam from this encounter Allergies Includes: Active Allergies Substance Type Reaction Onset Date Resolved Date Statu s Amoxicillin Allergy 06/28/2022 Active Last Documented On 3 10:17AM ; [facility] Encounters Encounter Provider Location Date Check-In Time Check- Out Time Diagnosis Follow Up Ricardo Claros MD [facility] 3 9:38AM 11:00AM Insurance Includes: Active Insurance Policies Plan Name Member ID Group # Subscriber Relationship Effect luis Dates 1 - [facility] [id number] Melissa Fagan Self 05/09/2022 - Unknown Clinical Notes Includes: Clinical Notes from this encounter * Progress note Date Encounter Last Documented by 08/26/2022 Follow Up Last documented on 08/29/2022; 1:11 PM, Ricardo Claros MD; [facility], [facility] Active Problems & Conditions - Lower Back Pain Chief Complaint The Chief Complaint is: Low back pain. Referred Here Referred by PCP. History of Present Illness Melissa Fagan is a 66 year old female. - Allergy list reviewed - Problem list reviewed - Medication list reviewed Patient is here today for follow-up of her L5-S1 spondylolisthesis she says she is doing about the same may feel little bit better mainly just back pain at this point time sometimes she gets some leg pain with that. She has not had an opportunity to get to physical therapy due to work. She is not wanting to do any surgery with this presently. Current Medication - ARIPiprazole 5 MG Oral Tablet 30 days, 0 refills - Divalproex Sodium ER 500 MG Oral Tablet Extended Release 24 Hour 30 days, 0 refills - Meloxicam 15 MG Oral Tablet Take one tablet my mouth once a day, 30 days, 1 refills - Methocarbamol 750 MG Oral Tablet Take 1 tablet every 8 hrs prn pain, 30 days, 1 refills - rOPINIRole HCl 3 MG Oral Tablet 30 days, 0 refills - traZODone HCl 100 MG Oral Tablet 30 days, 0 refills Past Medical/Surgical History Diagnoses: Depression Social History Yes, current smoker. Current diet: No recent change in diet. Caffeine use: Caffeine use. Tobacco use: Tobacco use. Alcohol: Not using alcohol. Drug Use: Not using drugs. Habits: Exercising regularly. Allergies - Amoxicillin Family History Heart disease [place]: Thromboembolic disease Review Of Systems Systemic: No symptoms, not feeling tired, no recent weight loss, and no recent weight gain. Head: Headache, headache, and sinus pain. Eyes: No vision problems and no Cataracts. Glasses/Contacts. No Glaucoma. Otolaryngeal: No hearing loss and no tinnitus. Cardiovascular: No chest pain or discomfort, no palpitations, no Hypertension, and no High Cholesterol. Pulmonary: No daytime asthma symptoms and no chronic cough. No wheezing. Gastrointestinal: Heartburn and heartburn. No abdominal pain. Indigestion and Acid Reflux. No Peptic Ulcer, no GI Stomach Bleed, and no Ulcers. Endocrine: No hot flashes, no muscle weakness, no Diabetes, no Hypothyroid, and no Hyperthyroid. Hematologic: No easy bleeding, no tendency for easy bruising, and no Anemia. Musculoskeletal: No Arthritis and no lower back pain. No soft tissue swelling. Pain localized to one or more joints. Neurological: No dizziness, no convulsions, and no numbness. Psychological: Anxiety, anxiety, emotional lability, depression, and depression. No insomnia. Crying for no reason. Skin: No dry skin. No Ulcers, no Scars, and no rash. Allergic and Immunologic: No complaint of seasonal allergic reaction. Physical Findings - Vitals taken 08/26/2022 10:18 am mg Height 65 in Weight 125 lbs Body Mass Index 20.8 kg/m2 Body Surface Area 1.6 m2 Pleasant alert oriented x3. She has 5 out of 5 EHL gastroc quadricep tibialis anterior strength bilaterally Tests Lumbar spine x-rays MRI reviewed show she has a grade 2 L5-S1 spondylolisthesis Assessment L5-S1 spondylolisthesis grade 2 Previous Tests Available previous imaging studies were reviewed Available previous history reviewed Therapy - Intervention and counseling on cessation of tobacco use. Plan Patient was seen by myself Danny Lundy PA-C. Patient will follow up as needed for now at some point she may need to consider surgery she is not wanting to do that right now if she wants to consider surgery at some point she would need to come back to see us. Notes This dictation was done with voice recognition software and may contain errors and omissions. Practice Management Use of tobacco assessment performed. Care Team - [facility] Health Reminders - Assess Tobacco Use satisfied 06/28/2022. - Smoking & Tobacco Cessation Intervention and Counseling satisfied 08/27/2022.
--- OUTSIDE RECORDS SUMMARY | 2024-08-16 21:07 | XMS_ITS | Clinical Summary ---
Author Organization [facility] , [facility] Address [address] [place] [address] Phone Care Team Providers Care Dining Room Maid Name Role Phone [facility] Unavailable Unav devikaable Ricardo Claros MD Unavailable [phone] Reason for Visit and Chief Complaint The Chief Complaint is: Low back pain Problems Includes: Problems addressed during this encounter and other active Problems Current Visit Onset Date Resolved Date Provider Darío ramirez Status Lower Back Pain 06/28/2022 Danny Lundy PA-C A ctive Last Documented On 3 10:01AM ; [facility] Plan of Treatment Patient was seen by myself Danny Lundy PA-C. Patient will follow up after lumbar spine MRI with myself and Dr. Claros as well as the coccyx MRI. - Last Documented On 06/28/2022 11:35AM ; [facility] Pending Tests Order Diagnosis Results Due Ordering P rovider Radiology - MRI MRI Lumbar Spine 07/12/22 Samuel Lundy PA-C Last Documented On 3 11:35AM ; [facility] Radiology - MRI MRI Pelvis 07/12/22 Danny villarreal PA-C Last Documented On 3 11:35AM ; [facility] Instructions to patient Intervention and counseling on cessation of tobacco use Last Documented On 3 10:06AM ; [facility] Lose weight Last Documented On 3 10:02AM ; [facility] Assessments Includes: Assessments from this encounter Findings Coccydynia and L5-S1 spondylolisthesis - Last Documented On 06/28/2022 11:35AM ; [facility] Instructions Includes: Instructions from this encounter Instructions to patient Intervention and counseling on cessation of tobacco use Last Documented On 3 10:06AM ; [facility], [facility] Lose weight Last Documented On 3 10:02AM ; [facility], [facility] Medical Equipment - Implanted Devices Includes: Current Devices No Medical Equipment Recorded Medications Includes: Medications discussed during this encounter and other current Medications Current Medications (continue as prescribed) ARIPiprazole 5 MG Oral Tablet 06/08/2022 Provider: Diagnosis: Last Documented On 3 10:05AM By Ailyn Schmitz ; [facility], [facility] Divalproex Sodium ER 500 MG Oral Tablet Extended Release 24 Hour 06/08/2022 Provider: Diagnosis: Last Documented On 3 10:05AM By Ailyn Schmitz ; [facility], [facility] traZODone HCl 100 MG Oral Tablet 06/05/2022 Provider : Diagnosis: Last Documented On 3 10:05AM By Ailyn Schmitz ; [facility] rOPINIRole HCl 3 MG Oral Tablet 06/02/2022 Provider: Diagnosis: Last Documented On 3 10:05AM By Ailyn Schmitz ; [facility], [facility] Past Medications on file Meloxicam 15 MG Oral Tablet 09/20/2022 - 11/19/2022 Pr ovider: Ricardo Claros MD Diagnosis: Take one tablet my mouth once a day Last Documented On 3 2:46PM By Phylicia Bailon ; [facility] Methocarbamol 750 MG Oral Tablet 09/20/2022 - 11/20/19 23 Provider: Ricardo Claros MD Diagnosis: Take 1 tablet every 8 hrs prn pain Last Documented On 3 2:46PM By Phylicia Bailon ; [facility], [facility] Meloxicam 15 MG Oral Tablet 07/15/2022 - 09/13/2022 Pr ovider: Ricardo Claros MD Diagnosis: Take one tablet my mouth once a day Last Documented On 3 1:46PM By Phylicia Bailon ; [facility] Methocarbamol 750 MG Oral Tablet 07/15/2022 - 09/14/19 23 Provider: Ricardo Claros MD Diagnosis: Take 1 tablet every 8 hrs prn pain Last Documented On 3 1:46PM By Phylicia Bailon ; [facility], [facility] Medications Administered Includes: Administered Medications from this encounter No Administered Medications Recorded Vital Signs Includes: Vital Signs from this encounter Vital Name 06/28/2022 10:01A Height (in) 65 Weight (lb) 124 Body Mass Index 20.6 Body Surface Area 1.6 Note: mg Last Documented: On 06/28/2022 10:07A M ; [facility], [facility] Results Includes: Results discussed during this encounter No Results Recorded For Specified Dates History of Present Illness Includes: History of Present Illness from this encounter HPI Melissa Fagan is a 66 year old female. - Symptoms nothing makes the pain better, standing makes the pain worse. - Allergy list reviewed - Problem list reviewed - Medication list reviewed - Previous history of new onset pain 12/2021 Injury is not work related or an automotive accident - Sudden onset - Sharp pain Symptoms - Stabbing - Pain is constant (100% of the time) popping - Patient pain level from 1-10: 8 - No previous treatment. Patient is here today with complaints of lower back pain she has had this problem for about 2 months he is also complaining of pain over her coccyx. No specific injury does not really have any significant radicular symptoms but does say it bothers her standing and sitting as well as walking. She denies any bowel or bladder issues with this. Social History Description Last Updated Tobacco use 06/28/2022 Last Documented On 3 11:35AM ; [facility], [facility] Caffeine use 06/28/2022 Last Documented On 3 11:35AM ; [facility], [facility] Exercising regularly 06/28/2022 Last Documented On 3 11:35AM ; [facility], [facility] No recent change in diet 06/28/2022 Last Documented On 3 11:35AM ; [facility], [facility] Not using alcohol 06/28/2022 Last Documented On 3 11:35AM ; [facility] Not using drugs 06/28/2022 Last Documented On 3 11:35AM ; [facility], [facility] Yes, current smoker. 06/28/2022 Last Documented On 3 11:35AM ; [facility] Smoking Status Unknown Procedures and Surgical History Includes: Procedures from this encounter Procedures Code Diagnosis Performing Provider Service L ocation Service Date intervention and counseling on cessation of tobacco use 4000F Last Documented On 3 10:06AM ; [facility] use of tobacco assessment performed 1000F Last Documented On 3 10:02AM ; [facility] an X-ray was performed 81046 Last Documented On 3 10:39AM ; [facility] Medical History Includes: Medical History addressed during this encounter Description Last Updated History of depression 06/28/2022 Last Documented On 3 11:35AM ; [facility] Family History Includes: Family History addressed during this encounter Description Last Updated Family history of heart disease 06/28/19 Last Documented On 3 11:35AM ; [facility] Family history of thromboembolic disease 06/28/2022 Last Documented On 3 11:35AM ; [facility] Review of Systems Includes: Review of Systems from this encounter Systemic: Not feeling tired, no recent weight loss, and no recent weight gain. Head: Headache and sinus pain. Eyes: No vision problems and no Cataracts. Glasses/Contacts. No Glaucoma. Otolaryngeal: No hearing loss and no tinnitus. Cardiovascular: No chest pain or discomfort, no palpitations, no Hypertension, and no High Cholesterol. Pulmonary: No daytime asthma symptoms and no chronic cough. No wheezing. Gastrointestinal: Heartburn. No abdominal pain. Indigestion and Acid Reflux. [...] no convulsions, and no numbness. Psychological: Anxiety, emotional lability, and depression. No insomnia. Crying for no [...] Active Last Documented On 3 10:17AM ; [facility] Encounters Encounter Provider Location Date Check-In Time Check-Out Time Diagnosis Physician Specified Danny Lundy PA-C [facility] 06/28/19 23 10:00AM 10:29AM Insurance Includes: Active Insurance Policies Plan Name Member ID Group # Subscriber Relationship Effect luis Dates 1 - [facility] [id number] Melissa Fagan Self 05/09/2022 - Unknown Clinical Notes Includes: Clinical Notes from this encounter * Progress note Date Encounter Last Documented by 06/28/2022 Physician Specified Last documen rosamaria on 06/28/2022; 11:35 AM, Danny Lundy PA-C; [facility] Active Problems & Conditions - Lower Back Pain Chief Complaint The Chief Complaint is: Low back pain. Referred Here Referred by PCP. History of Present Illness Melissa Fagan is a 66 year old female. - Symptoms nothing makes the pain better, standing makes the pain worse. - Allergy list reviewed - Problem list reviewed - Medication list reviewed - Previous history of new onset pain 12/2021 Injury is not work related or an automotive accident - Sudden onset - Sharp pain Symptoms - Stabbing - Pain is constant (100% of the time) popping - Patient pain level from 1-10: 8 - No previous treatment. Patient is here today with complaints of lower back pain she has had this problem for about 2 months he is also complaining of pain over her coccyx. No specific injury does not really have any significant radicular symptoms but does say it bothers her standing and sitting as well as walking. She denies any bowel or bladder issues with this. Current Medication - ARIPiprazole 5 MG Oral Tablet 30 days, 0 refills - Divalproex Sodium ER 500 MG Oral Tablet Extended Release 24 Hour 30 days, 0 refills - rOPINIRole HCl 3 MG Oral [...] Allergies - Amoxicillin Family History Heart disease Thromboembolic disease Review Of Systems Systemic: Not feeling tired, no recent weight loss, and no recent weight gain. Head: Headache and sinus pain. Eyes: No vision problems and no Cataracts. Glasses/Contacts. No Glaucoma. Otolaryngeal: No hearing loss and no tinnitus. Cardiovascular: No chest pain or discomfort, no palpitations, no Hypertension, and no High Cholesterol. Pulmonary: No daytime asthma symptoms and no chronic cough. No wheezing. Gastrointestinal: Heartburn. No abdominal pain. Indigestion and Acid Reflux. [...] no convulsions, and no numbness. Psychological: Anxiety, emotional lability, and depression. No insomnia. Crying for no reason. Skin: No dry skin. No Ulcers, no Scars, and no rash. Allergic and Immunologic: No complaint of seasonal allergic reaction. Physical Findings - Vitals taken 06/28/2022 10:01 am mg Height 65 in Weight 124 lbs Body Mass Index 20.6 kg/m2 Body Surface Area 1.6 m2 Standard Measurements: - Patient was overweight. Patient's pleasant alert and oriented x3 she does have tenderness over her coccyx she has 5 out of 5 EHL gastroc quadricep tibialis anterior strength bilaterally she is able to walk on her toes 1+ Achilles and patellar reflexes bilaterally negative straight leg raise bilaterally Tests Outside facility x-rays of her coccyx were negative she does have a spondylolisthesis grade 2 at L5-S1 3 views lumbar spine including flexion-extension and AP lateral shows a grade 2 spondylolisthesis June 28, 2022 Assessment Coccydynia and L5-S1 spondylolisthesis Previous Tests Imaging: X-Ray: An X-ray was performed. Available previous imaging studies were reviewed Available previous history reviewed Therapy - Intervention and counseling on cessation of tobacco use. Counseling/Education - Lose weight Plan StartCited - Other Radiology/MRI: MRI Lumbar Spine, MRI Pelvis EndCited Patient was seen by myself Danny Lundy PA-C. Patient will follow up after lumbar spine MRI with myself and Dr. Claros as well as the coccyx MRI. Notes This dictation was done with voice recognition software and may contain errors and omissions. Practice Management Use of tobacco assessment performed. Care Team - [facility]
--- OUTSIDE RECORDS SUMMARY | 2024-08-16 21:07 | XMS_ITS ---
Care Plan - [facility], [facility] Created on: August 16, 2024 Melissa Fagna : 1955 Sex: Female Author Organization [facility] Address [address] [place] [address] Phone Care Team Providers Care Suggestion Clerk Name Role Phone [facility] Unavailable Unav ailable Harlan GREY, Ricardo Campuzano Unavailable [phone]
--- OUTSIDE RECORDS SUMMARY | 2024-08-16 21:07 | XMS_ITS | Clinical Summary ---
Author Organization [facility] , [facility] Address [address] [place] [address] Phone Care Team Providers Care Package Line Relief Operator Name Role Phone [facility] Unavailable Unav ailable Harlan GREY, Ricardo Campuzano Unavailable [phone] Reason for Visit and Chief Complaint [Patient Encounter] Problems Includes: Problems addressed during this encounter and other active Problems All Visits Onset Date Resolved Date Provider Condition S tatus Lower Back Pain 06/28/2022 Danny Lundy PA-C A ctive Last Documented On 3 10:01AM ; [facility], [facility] Plan of Treatment No Plan of Treatment Recorded Assessments Includes: Assessments from this encounter No Assessments Recorded Medical Equipment - Implanted Devices Includes: Current Devices No Medical Equipment Recorded Medications Includes: Medications discussed during this encounter and other current Medications New / Renewed during this visit Ricardo Claros MD on 09/20/2022 Meloxicam 15 MG Oral Tablet Provider: Ricardo Claros MD 30 day supply: 30 tablet, 1 refills Diagnosis: Take one tablet my mouth once a day Pharmacy: [facility] [address] [employer] [address], [id number] - Last Documented On 3 2:46PM By Phylicia Bailon ; [facility] Methocarbamol 750 MG Oral Tablet Provider: Ricardo Claros MD 30 day supply: 60 tablet, 1 refills Diagnosis: Take 1 tablet every 8 hrs prn pain Pharmacy: [facility] - [address], [address] - Last Documented On 3 2:46PM By Phylicia Bailon ; [facility] Current Medications (continue as prescribed) ARIPiprazole 5 MG Oral Tablet 06/08/2022 Provider: Diagnosis: Last Documented On 3 10:05AM By Ailyn Schmitz ; [facility] Divalproex Sodium ER 500 MG Oral Tablet Extended Release 24 Hour 06/08/2022 Provider: Diagnosis: Last Documented On 3 10:05AM By Ailyn Schmitz ; [facility] traZODone HCl 100 MG Oral Tablet 06/05/2022 Provider : Diagnosis: Last Documented On 3 10:05AM By Ailyn Schmitz ; [facility] rOPINIRole HCl 3 MG Oral Tablet 06/02/2022 Provider: Diagnosis: Last Documented On 3 10:05AM By Ailyn Schmitz ; [facility], [facility] Medications Administered Includes: Administered Medications from this encounter No Administered Medications Recorded Results Includes: Results discussed during this encounter No Results Recorded For Specified Dates History of Present Illness Includes: History of Present Illness from this encounter No History of Present Illness Recorded Social History No Social History Recorded - Smoking Status Unknown Medical History Includes: Medical History addressed during this encounter No Medical History Recorded Family History Includes: Family History addressed during this encounter No Family History Recorded Review of Systems Includes: Review of Systems from this encounter No Review of Systems Recorded Mental Status Includes: Mental Status from this encounter No Mental Status Recorded Functional Status Includes: Functional Status from this encounter No Functional Status Recorded Physical Exam Includes: Physical Exam from this encounter No Physical Exam Recorded Allergies Includes: Active Allergies Substance Type Reaction Onset Date Resolved Date Statu s Amoxicillin Allergy 06/28/2022 Active Last Documented On 3 10:17AM ; [facility] Encounters Encounter Provider Location Date Check-In Time Check-Out Time Diagnosis [Patient Encounter] Ricardo Claros MD 09/20/2022 2:32PM 11:59PM Insurance Includes: Active Insurance Policies Plan Name Member ID Group # Subscriber Relationship Effect luis Dates 1 - [facility] [id number] Melissa Fagan Self 05/09/2022 - Unknown Clinical Notes Includes: Clinical Notes from this encounter No Clinical Notes Recorded
--- OUTSIDE RECORDS SUMMARY | 2024-08-16 21:07 | XMS_ITS | Clinical Summary ---
Author Organization [facility] Address [address] [place] [address] Phone Care Team Providers Care Stave And Bolt Equalizer Name Role Phone [facility] Unavailable Unav ailable Harlan GREY, Ricardo Campuzano Unavailable [phone] Reason for Visit and Chief Complaint The Chief Complaint is: Low back pain Problems Includes: Problems addressed during this encounter and other active Problems Current Visit Onset Date Resolved Date Provider Darío ramirez Status Lower Back Pain 06/28/2022 Danny Campuzano ctluis Last Documented On 3 10:01AM ; [facility] Plan of Treatment Pending Tests Order Diagnosis Results Due Ordering P rovider Therapy - Physical Therapy Lumbar 07/15/22 Ricardo Claros MD Last Documented On 3 3:35PM ; [facility] Instructions to patient Intervention and counseling on cessation of tobacco use Last Documented On 3 3:35PM ; [facility] Assessments Includes: Assessments from this encounter No Assessments Recorded Instructions Includes: Instructions from this encounter Instructions to patient Intervention and counseling on cessation of tobacco use Last Documented On 3 3:35PM ; [facility] Medical Equipment - Implanted Devices Includes: Current Devices No Medical Equipment Recorded Medications Includes: Medications discussed during this encounter and other current Medications New / Renewed during this visit Ricardo Claros MD on 07/15/2022 Meloxicam 15 MG Oral Tablet Provider: Ricardo Claros MD 30 day supply: 30 tablet, 1 refills Diagnosis: Take one tablet my mouth once a day Pharmacy: [facility] [address] [facility] [address] - Last Documented On 3 1:46PM By Phylicia Bailon ; [facility] Methocarbamol 750 MG Oral Tablet Provider: Ricardo Claros MD 30 day supply: 60 tablet, 1 refills Diagnosis: Take 1 tablet every 8 hrs prn pain Pharmacy: [facility] [address], [place], [address] - Last Documented On 3 1:46PM By Phylicia [facility] Current Medications (continue as prescribed) ARIPiprazole 5 MG Oral Tablet 06/08/2022 Provider: Diagnosis: Last Documented On 3 10:05AM By Ailyn Schmitz ; [facility] Divalproex Sodium ER 500 MG Oral Tablet Extended Release 24 Hour 06/08/2022 Provider: Diagnosis: Last Documented On 3 10:05AM By Ailyn [facility] traZODone HCl 100 MG Oral Tablet 06/05/2022 Provider : Diagnosis: Last Documented On 3 10:05AM By Ailyn Schmitz ; [facility] rOPINIRole HCl 3 MG Oral Tablet 06/02/2022 Provider: Diagnosis: Last Documented On 3 10:05AM By Ailyn Schmitz ; [facility] Past Medications on file Meloxicam 15 MG Oral Tablet 09/20/2022 - 11/19/2022 Pr ovider: Ricardo Claros MD Diagnosis: Take one tablet my mouth once a day Last Documented On 3 2:46PM By Phylicia [facility] Methocarbamol 750 MG Oral Tablet 09/20/2022 - 11/20/19 Provider: Ricardo Claros MD Diagnosis: Take 1 tablet every 8 hrs prn pain Last Documented On 3 2:46PM By Phylicia Bailon ; [facility] Medications Administered Includes: Administered Medications from this encounter No Administered Medications Recorded Results Includes: Results discussed during this encounter No Results Recorded For Specified Dates History of Present Illness Includes: History of Present Illness from this encounter HPI Melissa Fagan is a 66 year old female. - Allergy list reviewed - Problem list reviewed - Medication list reviewed Social History Description Last Updated Tobacco use 06/28/2022 Last Documented On 3 1:10PM ; [facility] Caffeine use 06/28/2022 Last Documented On 3 1:10PM ; [facility] Exercising regularly 06/28/2022 Last Documented On 3 1:10PM ; [facility] No recent change in diet 06/28/2022 Last Documented On 3 1:10PM ; [facility] Not using alcohol 06/28/2022 Last Documented On 3 1:10PM ; [facility] Not using drugs 06/28/2022 Last Documented On 3 1:10PM ; [facility] Yes, current smoker. 06/28/2022 Last Documented On 3 1:10PM ; [facility] Smoking Status Unknown Procedures and Surgical History Includes: Procedures from this encounter Procedures Code Diagnosis Performing Provider Service L ocation Service Date intervention and counseling on cessation of tobacco use 4000F Last Documented On 3 3:35PM ; [facility] use of tobacco assessment performed 1000F Last Documented On 3 1:10PM ; [facility] body mass index not documented system reason 300 8F Last Documented On 3 3:35PM ; [facility] Medical History Includes: Medical History addressed during this encounter Description Last Updated History of depression 06/28/2022 Last Document[facility] 3 1:10PM ; [facility] Family History Includes: Family History addressed during this encounter Description Last Updated Family history of heart disease 06/28/19 Last Documented On 3 1:10PM ; [facility] Family history of thromboembolic disease 06/28/2022 Last Documented On 3 1:10PM ; [facility] Review of Systems Includes: Review [...] Active Last Documented On 3 10:17AM ; [facility] Encounters Encounter Provider Location Date Check-In Time Check- Out Time Diagnosis Follow Up Ricardo Claros MD [facility] 3 12:59PM 1:36PM Insurance Includes: Active Insurance Policies Plan Name Member ID Group # Subscriber Relationship Effect luis Dates 1 - [facility] [id number] Melissa Fagan Self 05/09/2022 - Unknown Clinical Notes Includes: Clinical Notes from this encounter * Progress note Date Encounter Last Documented by 07/15/2022 Follow Up Last documented on 07/15/2022; 3:35 PM, Ricardo Claros MD; [facility] Active Problems & Conditions - Lower Back Pain Chief Complaint The Chief Complaint is: Low back pain. Referred Here Referred by PCP. History of Present Illness Melissa Fagan is a 66 year old female. - Allergy list reviewed - Problem list reviewed - Medication list reviewed Current Medication - ARIPiprazole 5 MG Oral [...] Immunologic: No complaint of seasonal allergic reaction. Previous Tests Available previous imaging studies were reviewed Available previous history reviewed Therapy - Intervention and counseling on cessation of tobacco use. Plan StartCited - Other Therapy/Physical Therapy: Lumbar Instructions: See PT order attached Meloxicam 15 MG tablet Take one tablet my mouth once a day, 30 days, 1 refills Methocarbamol 750 MG tablet Take 1 tablet every 8 hrs prn pain, 30 days, 1 refills EndCited Notes This dictation was done with voice recognition software and may contain errors and omissions. Patient is here for follow-up of her back pain and tailbone pain. She is continue to work and does a lot of lifting. She has good strength in both lower extremities. No long track findings. Normal gait. Sensations grossly intact. Palpable pulses good skin turgor. Her x-rays and MRI reviewed and she has a grade 2 spondylolisthesis at L5-S1. She really has had no treatment and therefore I recommended anti- inflammatory and physical therapy. She says she needs to work and I am not sure if a spinal fusion is going to help her continue to work. We will try these conservative measures and if he does not improve we will consider injections Practice Management Use of tobacco assessment performed; Body mass index not documented system reason. Care Team - Associates [facility] Reminders - Assess Tobacco Use satisfied 06/28/2022. - Smoking & Tobacco Cessation Intervention and Counseling satisfied 07/15/2022.
--- OUTSIDE RECORDS SUMMARY | 2024-08-16 21:07 | XMS_ITS ---
Author Organization [facility] Address [address] [place] [address] Phone Care Team Providers Care Clean Out Driller Name Role Phone [facility] Unavailable Unav ailable Ricardo Claros MD Unavailable [phone] Problems Includes: Active, inactive, and resolved Problems All Visits Onset Date Resolved Date Provider Condition S tatus Lower Back Pain 06/28/2022 Danny Lundy PA-C A ctive Last Documented On 3 10:01AM ; [facility] Plan of Treatment Pending Tests Order Diagnosis Results Due Ordering P rovider Radiology - MRI MRI Lumbar Spine 07/12/22 Samuel Lundy PA-C Last Documented On 3 11:35AM ; [facility] Radiology - MRI MRI Pelvis 07/12/22 Danny villarreal PA-C Last Documented On 3 11:35AM ; [facility] Instructions to patient Intervention and counseling on cessation of tobacco use Last Documented On 3 10:18AM ; [facility] Intervention and counseling on cessation of tobacco use Last Documented On 3 3:35PM ; [facility] Intervention and counseling on cessation of tobacco use Last Documented On 3 10:06AM ; [facility] Lose weight Last Documented On 3 10:02AM ; [facility] Assessments Includes: Assessments for all patient encounters No Assessments Recorded Instructions Includes: Instructions for all patient encounters Instructions to patient Intervention and counseling on cessation of tobacco use Last Documented On 3 10:18AM ; [facility] Intervention and counseling on cessation of tobacco use Last Documented On 3 3:35PM ; [facility] Intervention and counseling on cessation of tobacco use Last Documented On 3 10:06AM ; [facility] Lose weight Last Documented On 3 10:02AM ; [facility] Medical Equipment - Implanted Devices Includes: Current and historical Devices No Medical Equipment Recorded Medications Includes: Current and historical Medications Current Medications (continue as prescribed) ARIPiprazole 5 MG Oral Tablet 06/08/2022 Provider: Diagnosis: Last Documented On 3 10:05AM By Ailyn Schmitz ; [facility] Divalproex Sodium ER 500 MG Oral Tablet Extended Release 24 Hour 06/08/2022 Provider: Diagnosis: Last Documented On 3 10:05AM By Ailyn Schmitz ; [facility] traZODone HCl 100 MG Oral Tablet 06/05/2022 Provider : Diagnosis: Last Documented On 3 10:05AM By Ailyn Schmitz ; [facility] rOPINIRole HCl 3 MG Oral Tablet 06/02/2022 Provider: Diagnosis: Last Documented On 3 10:05AM By Ailyn Schmitz ; [facility] Past Medications on file Meloxicam 15 MG Oral Tablet 09/20/2022 - 11/19/2022 Pr ovider: Ricardo Claros MD Diagnosis: Take one tablet my mouth once a day Last Documented On 3 2:46PM By Phylicia Bailon ; [facility] Methocarbamol 750 MG Oral Tablet 09/20/2022 - 11/20/19 Provider: Ricardo Claros MD Diagnosis: Take 1 tablet every 8 hrs prn pain Last Documented On 3 2:46PM By Phylicia Bailon ; [facility] Meloxicam 15 MG Oral Tablet 07/15/2022 - 09/13/2022 Pr ovider: Ricardo Claros MD Diagnosis: Take one tablet my mouth once a day Last Documented On 3 1:46PM By Phylicia Bailon ; [facility] Methocarbamol 750 MG Oral Tablet 07/15/2022 - 09/14/19 Provider: Ricardo Claros MD Diagnosis: Take 1 tablet every 8 hrs prn pain Last Documented On 3 1:46PM By Phylicia Bailon ; [facility] Medications Administered Includes: Administered Medications in patient's chart No Administered Medications Recorded Results Includes: Results from 08/17/2023 through 08/16/2024 No Results Recorded For Specified Dates History of Present Illness History of Present Illness not supported for this document type No History of Present Illness Recorded Social History Description Last Updated Tobacco use 06/28/2022 Last Documented On 3 11:35AM ; [facility] Caffeine use 06/28/2022 Last Documented On 3 11:35AM ; [facility] Exercising regularly 06/28/2022 Last Documented On 3 11:35AM ; [facility] No recent change in diet 06/28/2022 Last Documented On 3 11:35AM ; [facility] Not using alcohol 06/28/2022 Last Documented On 3 11:35AM ; [facility] Not using drugs 06/28/2022 Last Documented On 3 11:35AM ; [facility] Yes, current smoker. 06/28/2022 Last Documented On 3 11:35AM ; [facility] Smoking Status Unknown Medical History Includes: Medical History in patient's chart Description Last Updated History of depression 06/28/2022 Last Documented On 3 11:35AM ; [facility] Family History Includes: Family History in patient's chart Description Last Updated Sororal history of thromboembolic diseas e 08/26/2022 Last Documented On 3 1:11PM ; [facility] Family history of heart disease 06/28/19 Last Documented On 3 11:35AM ; [facility] Family history of thromboembolic disease 06/28/2022 Last Documented On 3 11:35AM ; [facility] Review of Systems Review of Systems not supported for this document type No Review of Systems Recorded Mental Status No Mental Status Recorded Functional Status No Functional Status Recorded Physical Exam Physical Exam not supported for this document type No Physical Exam Recorded Allergies Includes: Active, inactive, and resolved Allergies Substance Type Reaction Onset Date Resolved Date Statu s Amoxicillin Allergy 06/28/2022 Active Last Documented On 3 10:17AM ; [facility] Insurance Includes: Active Insurance Policies Plan Name Member ID Group # Subscriber Relationship Effect luis Dates 1 - [facility] [id number] Melissa Fagan Self 05/09/2022 - Unknown Clinical Notes Includes: Signed Clinical Notes starting from 04/22/2022 No Clinical Notes Recorded
== END 2024-08-14 23:59 | disposition home or self-care (01) ==
LOC: RT 10:53
PROVIDERS: PCP Nurse Practitioner Family; Visit Provider Internal Medicine
DX: I47.19 Other supraventricular tachycardia (principal); I45.89 Other specified conduction disorders; I49.1 Atrial premature depolarization; I49.3 Ventricular premature depolarization; I47.29 Other ventricular tachycardia; R55 Syncope and collapse
CPT/HCPCS: 93270

== ENCOUNTER 2024-11-20 17:21 | Emergency (ER) | payer MEDICARE, SELFPAY ==
--- OUTSIDE RECORDS SUMMARY | 2024-01-17 09:15 | XMS_ITS ---
Author Organization [facility] Address [address] [place] [id number] Care Team Providers Care Central Scheduler Name Role Phone Alton Sow Primary Care Provider [phone] Tamara Tay Unavailable [phone] Allergies Allergen (clinical drug ingredient) Drug/Non Drug [...] review and pick correct strength-formulatio n from [employer] options. If intended option is not shown, [...] [address] [place] [id number] 01/17/2024 Tamara Tay Gastroenteritis K52. 9 and [...] * MARIANGEL FAGANEDOB:[birth year] (69 yo F)Acc No.[id number]:01/17/2024 Progress Notes Patient: MELISSA JEWELL Provider: MISAEL Ramírez :1955 A ge:68 Y S ex:Female Date:01/17/2024 Address:[facility] [address], [facility] [id number] Pcp:Alton Sow Subjective: * Chief Complaints: * [...] * Images: Billing Information: * Visit Code: 75060 Office Visit, Est Pt., Level 3. * Procedure Codes: * Electronic signature of Rand Tay APRN on 11/20/2024 at 05:51 PM EDT Sign off status: Pending * Provider: MISAEL Ramírez Date: 01/17/2024 Generated for Leydi de la cruz/Lourdes/Cheryl on: 11/20/2024 05:51 PM EDT History and Physical Notes * HPI [...]
[2024-11-20 17:45] VITALS: BP 117/62; PULSE 76; RESP 16; TEMP 36.8; O2SAT 96; BMI 22.8
--- NOTE | 2024-11-20 17:47 | XR_ITS ---
PROCEDURE INFORMATION: Exam: XR Right Wrist Exam date and time: 11/20/2024 5:53 PM Age: 69 years old Clinical indication: Injury or trauma; Fall; Blunt trauma (contusions or hematomas); Wrist; Right; Additional info: [employer] TECHNIQUE: Imaging protocol: Radiologic exam of the right wrist. Views: 3 or more views. COMPARISON: CR XR HAND RT MIN 3V 11/20/2024 5:53 PM FINDINGS: Bones/joints: Acute hairline nondisplaced fracture through the metaphyseal and meta epiphyseal junction region of the distal radius. 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 Soft tissues: Associated soft tissue swelling is identified. IMPRESSION: 1. Acute hairline nondisplaced fracture through the metaphyseal and meta epiphyseal junction region of the distal radius. 2. 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
--- NOTE | 2024-11-20 17:47 | XR_ITS ---
PROCEDURE INFORMATION: Exam: XR Right Hand Exam date and time: 11/20/2024 5:53 PM Age: 69 years old Clinical indication: Injury or trauma; Fall; Blunt trauma (contusions or hematomas); Hand; Right; Additional info: [employer] TECHNIQUE: Imaging protocol: Radiologic exam of the right hand. Views: 3 or more views. 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 Partially visualized distal radius fracture-see right wrist x-ray report. No fracture identified within the right hand. Soft tissues: Normal. IMPRESSION: 1. 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 2. Partially visualized distal radius fracture-see right wrist x-ray report. 3. No fracture identified within the right hand.
--- OUTSIDE RECORDS SUMMARY | 2024-11-20 17:51 | XMS_ITS | Patient Health Record ---
Author Organization [facility] Address [address] [facility] [address] [place] [id number] Care Team Providers Care Slate Splitting Supervisor Name Role Phone Alton Swo Primary Care Provider [phone] TaySusan vermaTamara Unavailable [phone] Allergies Allergen (clinical drug ingredient) Drug/Non Drug Allergy documented on EMR Reaction Allergy Type Onset Date Status amoxicillin Amoxicillin Unknown Drug Allergy Act luis aspirin Aspirin Unknown Drug Allergy Active Results Component Value Reference Range Notes CBC Venipuncture (in house) Reviewed date:08/14/2024 10:02:36 AM Interpretation: Performing Lab: Notes/Report: wbc 7.5 3.5 - 10 lymph 30.2 15 - 50 mid 6.0 2 - 15 gran 63.8 35 - 80 rbc 4.47 3.5 - 5.5 hgb 13.9 11.5 - 16.5 hct 41.7 35 - 55 mcv 93.3 75 - 100 mch 31.0 25 - 35 mchc 33.3 31 - 38 platlet 308 100 - 400 P-Comprehensive Metabolic Pa lizbeth (CMP) Reviewed date:08/14/2024 10:01:34 AM Interpretation:Normal Performing Lab: Notes/Report: Test performed by [facility], [employer] [address] [place] [address] , [address], [place] [address] Butch Soto MD, [employer] CLIA: [id number] Sodium 141 135-145 mmol/L Potassium 5.0 3.5-5.3 mmol/L Chloride 104 97-108 mmol/L CO2 23 22-32 mmol/L Glucose 84 65-99 mg/dL BUN 15 8-23 mg/dL Creatinine 0.67 0.50-1.00 mg/dL Calcium 9.4 8.6-10.4 mg/dL eGFR by Creatinine 96 >59 mL/min/1.73m2 Protein 6.8 6.0-8.3 g/dL Albumin 4.2 3.5-5.3 g/dL Alkaline Phosphatase 91 35-121 IU/L ALT (SGPT) 12 <5-47 IU/L AST (SGOT) 19 <5-40 IU/L Bilirubin, Total 0.2 <0.2-1.2 mg/dL A/G Ratio 1.6 1.1-2.5 P-Lipid Panel Reviewed date:08/14/2024 10:01:47 AM Interpretation:LDL 90; HDL 64; TG 129 Performing Lab: Notes/Report: Test performed by [facility], [address] , [address], [place] [address] Butch Soto MD, [employer] CLIA: [id number] Cholesterol 180 <200 mg/dL Triglycerides 129 <150 mg/dL HDL Cholesterol 64 >39 mg/dL Cholesterol / HDL Ratio 2.81 0.00-4.44 Ratio Non-HDL Cholesterol 116 <130 mg/dL LDL Cholesterol (Calculation) 90 <130 mg/dL LDL Cholesterol Levels* Less than 100 mg/dL Optimal 100 to 129 mg/dL Near Optimal/ Above Optimal 130 to 159 mg/dL Borderline High 160 to 189 mg/dL High 190 mg/dL and above Very High * Categories as recommended by the 2004 ATPIII guidelines LDL/HDL Ratio 1.4 <3.3 Ratio LDL Cholesterol Patient History Test Date: 08/06/2024 LDL Results: 90 Units: mg/dL % Change: - P-TSH Reviewed date:08/14/2024 10:02:14 AM Interpretation:1.87 Performing Lab: Notes/Report: Test performed by [facility] [address] [place] [address] , [address], [place] [address] Butch Soto MD, [employer] CLIA: [id number] TSH 1.87 0.43-5.25 mU/L EKG Reviewed date:08/31/2024 08:35:32 AM Interpretation:SR with Occ PVC; LBBB Performing Lab: Notes/Report: SR with Occ PVC; LBBB Ultrasound : Carotids Reviewed date:08/31/2024 08:34:48 AM Interpretation:less than 50% stenosis Performing Lab: Notes/Report: less than 50% stenosis Event Recorder (Not yet revi ewed by provider) Interpretation: Performing Lab: Notes/Report: P-Magnesium Reviewed date:08/14/2024 10:02:01 AM Interpretation:2.3 Performing Lab: Notes/Report: Test performed by [facility] [address] [place] [address] [address], [place] [address] Butch Soto MD, [employer] CLIA: [id number] Magnesium 2.3 1.6-2.4 mg/dL Holter Monitor- 48 hour Reviewed date:11/08/2024 12:10:32 PM Interpretation:run of ?VT Performing Lab: Notes/Report: run of ?VT CBC Fingerstick (in house) Reviewed date:12/19/2023 02:31:15 [...] - 38 plat 197 100 - 400 Medications Medication SIG (Take, Route, Frequency, Duration) Notes Start Date End Date Status Crestor 5 MG 1 tablet Orally Once a day; Duration: 30 day(s) 08/20/2024 Active traZODone HCl 100 MG 2 tab(s) orally qhs Active rOPINIRole HCl 4 MG 1 -2tab(s) Orally once a day at bedtime; Duration: 30 days 06/07/2012 Active Omeprazole 20 MG 1 capsule 30 minutes before morning meal Orally Once a day Active Sertraline HCl 100 MG 1 tab(s) orally once a day Active Vitamin D (Cholecalciferol) 2000 I.U. 1 TAB(S) ONCE A DAY *Please review and pick correct strength-formulatio n from [employer]onic options. If intended option is not shown, discontinue and re-order from Quick Search* 10/07/2010 Active Alendronate Sodium 70 MG 1 tab(s) Orally once a week; Duration: 28 day(s) 08/02/2018 Active Immunizations Vaccine Route Administration Date Status Comme nts Tetanus Tdap-Adacel (over 7yrs) IM Intramuscular 07/12/2018 Administered PNEUMOVAX 23 VACCINE IM Intramuscular 07/12/2018 Administe red COVID 19 Milly Unknown 01/29/2021 Administered Problems Problem Type SNOMED Code ICD Code Onset Dates Problem Status W/U Status Risk Notes Problem Gastroesophageal reflux disease (139914444) GERD (gastroesophageal reflux disease) (K21.9) Active confirmed Problem Hyperlipidemia (32745021) Hyperlipidemia (E78.5) Active confirmed Problem Sciatic nerve lesion (619814394) Piriformis syndrome of right side (G57.01) Active confirmed Problem Psoriasis (7352007) Psoriasis (L40.9) Active co nfirmed Problem Restless legs (67961636) Restless legs (G25.81) Active confirmed Problem Restless legs (80178765) Restless leg (G25.81) Active confirmed Problem Reactive depression (situational) (15088330) Situational depression (F43.21) Active confirmed Problem Hypothyroidism (19822753) Hypothyroidism (E03.9) Active confirmed Problem Osteoporosis (49094538) Osteoporosis (M81.0) Active confirmed Problem Paresthesia of arm (21162695) Paresthesia of arm (R20.2) Active confirmed Problem Depressive disorder (disorder) (23066739) Depression, unspecified depression type (F32.9) Active confirmed Problem History of nicotine dependence (313253574390705261 ) History of nicotine dependence (Z87.891) Active confirmed Problem Osteoporosis (66225463) Osteoporosis, unspecified (M81.0) Active confirmed Vital Signs Heart Rate 67 /min 08/20/2024 Blood pressure diastolic 80 mm Hg 08/20/2024 Height 64.50 in 08/20/2024 Blood pressure systolic 100 mm Hg 08/20/2024 Weight 134.4 lbs 08/20/2024 BMI 22.71 kg/m2 08/20/2024 Encounters Encounter Location Date [facility] [place] [id number] 12/19/2023 Tamara Tay Gastroenteritis K52. 9 and GERD (gastroesophageal reflux disease) K21.[address] [place] [id number] 01/17/2024 Tamara Tay Gastroenteritis K52. 9 and GERD (gastroesophageal reflux disease) K21.9 [facility] [place] [id number] 08/06/2024 Tamara Tay Restless legs G25.81 ; Near syncope R55 ; Lipid screening Z13.220 ; Situational depression F43.21 ; History of nicotine dependence Z87.891 ; Tobacco abuse Z72.0 and GERD (gastroesophageal reflux disease) K21.9 [facility] [place] [id number] 08/20/2024 Tamara Tay Osteoporosis M81.0 ; History of nicotine dependence Z87.891 ; Near syncope R55 ; Hyperlipidemia E78.5 ; Restless leg G25.81 ; BMI 22.0-22.9, adult Z68.22 ; Tobacco use Z72.0 and Osteoporosis, unspecified M81.0 [facility] [address] [place] [address] [place] [id number] 03/05/2024 Alton [place] Osteoporosis M81.0 Assessments Encounter Date Diagnosis (ICD Code) Assessment Notes Treatment Notes Treatment Clinical Notes Section Notes 12/19/2023 GERD (gastroesophageal reflux disease) (ICD-10 - K21.9) bland diet ; smoking cessation 12/19/2023 Gastroenteritis (ICD-10 - K52.9) bland diet; increase water intake 01/17/2024 GERD (gastroesophageal reflux disease) (ICD-10 - K21.9) diet as tolerated 01/17/2024 Gastroenteritis (ICD-10 - K52.9) resolved 03/05/2024 Osteoporosis (ICD-10 - M81.0) 08/06/2024 Near syncope (ICD-10 - R55) tests ordered; Event recorder x 2 weeks 08/06/2024 Restless legs (ICD-10 - G25.81) she requests another dose a day ; cautioned her to not take more than the 8 mg and try to wean down to 4 mg at HS; suggested heat, walking an stretches for the leg pain along with a good water intake and to decrease caffeine and tobacco 08/20/2024 Osteoporosis (ICD-10 - M81.0) 08/20/2024 History of nicotine dependence (ICD-10 - Z87.891) discussed cessation and change of behaviors; suggested gum; she will consider 08/20/2024 Near syncope (ICD-10 - R55) currently wearing event recorder; strongly suggested that she go to ER if further syncope event 08/06/2024 Lipid screening (ICD-10 - Z13.220) 08/20/2024 Hyperlipidemia (ICD-10 - E78.5) to start Crestor and ECASA daily 08/06/2024 Situational depression (ICD-10 - F43.21) 08/20/2024 Restless leg (ICD-10 - G25.81) suggested Mg++ and vit B12; smokong cessation and good water intake 08/06/2024 History of nicotine dependence (ICD-10 - Z87.891) 08/06/2024 Tobacco abuse (ICD-10 - Z72.0) she is now smoking 1 PPD; discussed need to decrease; she is not ready 08/20/2024 BMI 22.0-22.9, adult (ICD-10 - Z68.22) 08/20/2024 Tobacco use (ICD-10 - Z72.0) 08/06/2024 GERD (gastroesophageal reflux disease) (ICD-10 - K21.9) 08/20/2024 Osteoporosis, unspecified (ICD-10 - M81.0) 01/17/2024 Other discussed smoking cessation methods Plan Of Treatment Pending Test Test Name Order Date Event Recorder 08/06/2024 Insurance Providers Payer Name Payer Address Payer Phone Subscriber Number Group Number Insured Name Patient Relationship to Insured Coverage Start Date Coverage End Date [facility] [address] [address] [place], [place] [id number] MELISSA FAGAN Self - patient is the insured Medical (General) History Medical History History ICD Code anxiety/depression RLS psoriasis Surgical History Surgery Date(Month/Year) BTL Hospitalization History Reason Date(Month/Year) same as above
[2024-11-20 18:00] VITALS: BP 114/63; PULSE 71; O2SAT 96
--- NOTE | 2024-11-20 18:06 | HMH.EDGENADL ---
Discharge Plan Disposition Patient Disposition: Home, Self-Care Prescriptions Prescriptions: No Action ropinirole 4 mg tablet 4 mg PO DAILY rosuvastatin 5 mg tablet 5 mg PO DAILY metoprolol succinate 25 mg tablet extended release 24 hr 25 mg PO DAILY Qty: 30 2RF aspirin [Adult Aspirin Regimen] 81 mg tablet,delayed release (DR/EC) 81 mg PO DAILY venlafaxine [Effexor XR] 150 mg capsule,extended release 24hr 150 mg PO DAILY Qty: 30 2RF venlafaxine [Effexor XR] 75 mg capsule,extended release 24hr 75 mg PO DAILY Qty: 30 2RF trazodone 100 mg tablet 100 mg PO HS PRN (Reason: Sleep) Qty: 90 0RF Rexulti 0.5 mg tablet 0RF alendronate 70 mg Tablet 70 mg PO WEEKLY Referrals Follow up/Referrals: Ronaldo Claros DO [Staff Physician, Orthopedics] - See instructions Ashley Tay APRN [Primary Care Provider, Medical] - See instructions Activity Restrictions/Add. Instructions Additional Instructions/Restrictions: You have a nondisplaced right distal radius fracture. Please follow-up with Dr. Claros for definitive management within the next week. Clinical Impressions Clinical Impression: Closed fracture of right distal radius Print Language Print Language: Bengali Discharge ED Provider: Villa Martinez General Adult HPI General Chief complaint: Extremity Injury, Upper Stated complaint: AO 11/20/24 1400 Injury right wrist Time Seen by Provider: 11/20/24 17:41 Mode of Arrival: Ambulatory Source of Information: Patient Description of Symptoms (Recalled from ER Triage Doc. by RN): Pt reports right wrist injury from being pulled down by dog. Pt has swelling to right wrist and states she has no pain unless she moves her hand. History of Present Illness HPI narrative: Patient is a 69-year-old female presenting today with a right wrist injury after being pulled down by her dog and having a FOOSH injury. Denies any injuries elsewhere. No neurovascular abnormalities from historical standpoint. Denies any other significant past medical history. Related Data Home Medications ?Medication ?Instructions ?Recorded ?Confirmed aspirin 81 mg tablet,delayed 81 mg PO DAILY 12/10/20 11/15/24 release (Adult Aspirin Regimen) alendronate 70 mg tablet 70 mg PO WEEKLY 09/30/23 11/15/24 ropinirole 4 mg tablet 4 mg PO DAILY 11/15/24 11/15/24 rosuvastatin 5 mg tablet 5 mg PO DAILY 11/15/24 11/15/24 Previous Rx's ?Medication ?Instructions ?Recorded trazodone 100 mg tablet 100 mg PO HS PRN Sleep #90 tabs 11/05/24 venlafaxine 150 mg 150 mg PO DAILY #30 caps 11/05/24 capsule,extended release 24 hr (Effexor XR) venlafaxine 75 mg capsule,extended 75 mg PO DAILY #30 caps 11/05/24 release 24 hr (Effexor XR) metoprolol succinate 25 mg 25 mg PO DAILY #30 tabs 11/15/24 tablet,extended release 24 hr Allergies Allergy/AdvReac Type Severity Reaction Status Date / Time amoxicillin Allergy Intermediate Verified 11/15/24 09:25 [facility] Disclaimer: The information contained in this section may have been updated after the patient was seen, as this information can be updated by other users. Medical History (Updated 11/20/24 @ 18:05 by Villa Martinez MD) Smoker RLS (restless legs syndrome) Tachycardia Abnormal Holter monitor finding Near syncope Hyperlipidemia Nonsustained ventricular tachycardia SVT (supraventricular tachycardia) Arrhythmia Surgical History History of tubal ligation Family History Other No significant family history Social History Smoking Status: Current every day smoker alcohol intake: never substance use type: denies use current occupational status: employed Travel in the last 8 weeks?: None Have you lived/traveled outside US in past 30 days?: No Contact w/someone who lives/traveled outside US past 30 days?: No Exposure to someone with infectious disease in past 14 days?: No Do you have a fever (greater than 100.4 F or 38 C)?: No Have you tested positive for COVID-19?: No Exposed to someone with COVID-19 in past 14 days?: No Do you have a sore throat?: No Do you have a cough?: No Do you have any weakness?: No Do you have any diarrhea?: No Are you experiencing any unusual bleeding?: No Do you have any muscle aches/pain?: No Do you have any abdominal pain?: No Are you experiencing loss of taste or smell?: No Other Medical History Have you received the Pneumonia Vaccine: No ROS Obtained: Yes All systems reviewed & no additional complaints except as documented and Yes unobtainable due to endotracheal tube Physical Exam General General appearance: alert Respiratory Respiratory exam: Present normal lung sounds bilaterally Cardiovascular Cardiovascular exam: Present regular rate Extremities Exam Extremities exam: Present other (Normal neurovascular exam there is distal radius tenderness and swelling no injuries noted elsewhere) Neurological Exam Neurological exam: Present alert and oriented X3 Medical Decision Making Medical Records Screening: Per USPSTF and CDC recommendations, given the prevalence of disease in our region, it is our hospital?s policy to screen for HIV and viral Hepatitis for all patients aged 18 and over and those with ongoing risk factors. Evin Inquiry Pt receiving controlled substance: No Vital Signs: 11/20/24 17:45 Temperature 98.2 F Temperature Source Oral Pulse Rate [Left] 76 Respiratory Rate 16 Blood Pressure [Right Arm] 117/62 Blood Pressure Mean [Right Arm] 80 Blood Pressure Source [Right Arm] Automatic Cuff Blood Pressure Position [Right Arm] Supine 02 Sat by Pulse Oximetry 96 Oxygen Delivery Method Room Air Orders (Tests/Meds): ORDERS Category Date Time Status Hand XR right minimum 3 views [XR hand RT min 3V] Stat Exams 11/20/24 17:47 Taken Wrist XR right minimum 3 views [XR wrist RT min 3V] Exams 11/20/24 17:47 Taken Stat Medical Decision Narrative: Patient with above history and physical differential includes fracture dislocation sprain etc. Plain films were performed which I personally interpreted which shows a nondisplaced horizontally oriented fracture in the distal radius. Does not appear to be intra-articular from any nonetheless does not require an emergency reduction. She was placed in a sugar-tong splint and will follow-up closely outpatient with orthopedic surgery. Patient denied wanting any pain medicine here in the emergency department or prescribed at home. Procedures Orthopedic Splinting/Casting Injury #1: Side: right Upper Extremity Injury Location: forearm and wrist Upper Extremity Immobilizer: sugar tong splint Post Cast/Splinting Neuro Status: intact Post Cast/Splinting Vasc Status: intact Critical Care Critical Care Time Critical Care Time: No
[2024-11-20 18:07] VITALS: BP 117/62; PULSE 76; RESP 16; TEMP 36.8; O2SAT 96
== END 2024-11-20 18:34 | disposition home or self-care (01) ==
PROVIDERS: Emergency Provider Student in an Organized Health Care Education/Training Program; PCP Nurse Practitioner Family
DX: S52.501A Unspecified fracture of the lower end of right radius, initial encounter for closed fracture (principal); F17.210 Nicotine dependence, cigarettes, uncomplicated; X50.0XXA Overexertion from strenuous movement or load, initial encounter
CPT/HCPCS: 29125; 73110; 73130; 99284

== ENCOUNTER 2024-11-28 09:19 | Outpatient (CLI) | payer MEDICARE, SELFPAY ==
--- OUTSIDE RECORDS SUMMARY | 2024-01-17 09:15 | XMS_ITS ---
Author Organization [facility] Address [address] [place] [id number] Care Team Providers Care Extractor Machine Operator Name Role Phone Alton Sow Primary Care Provider Tamara Tay Unavailable [phone] Allergies Allergen (clinical drug ingredient) Drug/Non Drug Allergy documented on EMR Reaction Allergy Type Onset Date Status amoxicillin Amoxicillin Unknown Drug Allergy Act luis aspirin Aspirin Unknown Drug Allergy Active REASON FOR VISIT follow up Medications Medication SIG (Take, Route, Frequency, Duration) Notes Start Date End Date Status Alendronate Sodium 70 MG 1 tab(s) Orally once a week; Duration: 28 day(s) 08/02/2018 Active Vitamin D (Cholecalciferol) 2000 I.U. 1 TAB(S) ONCE A DAY *Please review and pick correct strength-formulatio n from [employer] options. If intended option is not shown, discontinue and re-order from Quick Search* 10/07/2010 Active traZODone HCl 100 MG 2 tab(s) orally qhs Active Sertraline HCl 100 MG 1 tab(s) orally once a day Active rOPINIRole HCl 3 MG 1 tab(s) orally once a day at bedtime 06/07/2012 Active Armodafinil 50 MG 1 tablet Orally Once a day Active Omeprazole 20 MG 1 capsule 30 minutes before morning meal Orally Once a day Active Vital Signs Blood pressure systolic 110 mm Hg 01/17/20 24 Blood pressure diastolic 70 mm Hg 024 Heart Rate 83 /min 01/17/2024 Height 64.50 in 01/17/2024 Weight 132.4 lbs 01/17/2024 BMI 22.37 kg/m2 01/17/2024 Encounters Encounter Location Date Provider Diagnosis [facility] [address] [place] [id number] 01/17/2024 Tamara Tay Gastroenteritis K52. 9 and GERD (gastroesophageal reflux disease) K21.9 Assessments Encounter Date Diagnosis (ICD Code) Assessment Notes Treatment Notes Treatment Clinical Notes Section Notes 01/17/2024 Gastroenteritis (ICD-10 - K52.9) resolved 01/17/2024 GERD (gastroesophageal reflux disease) (ICD-10 - K21.9) diet as tolerated 01/17/2024 Other discussed smoking cessation methods Plan Of Treatment Medication Medication Name Sig Start Date Stop Date Notes Omeprazole 20 MG 1 capsule 30 minutes before morning meal Orally Once a day Treatment Notes Assessment Notes Gastroenteritis resolved GERD (gastroesophageal reflux disease) d iet as tolerated Other discussed smoking ce ssation methods Next Appt Details Follow Up: prn, Reason: Progress Notes * MARIANGEL FAGANEDOB:[birth year] (69 yo F)Acc No.[id number]:01/17/2024 Progress Notes Patient: MELISSA JEWELL Provider: MISAEL Ramírez :1955 A ge:68 Y S ex:Female Date:01/17/2024 Address:[facility] [address] [id number] Pcp:Alton Sow Subjective: * Chief Complaints: * 1 . Follow up. * HPI: G astroenterology: 68 year old female presents with c/o Nausea P t is here today for a follow up on stomach problems. Pt sts she has had stomach aches a few times, but nothing like before. Pt sts she is no longer nausea, vomiting, or having diarrhea. Pt sts she has no other concerns or complaints at this time. c/o Vomiting. c/o Diarrhea. Denies : Abdominal Pain. D enies : Heartburn. D enies : Fever. D enies : Abdominal Distension. D enies : Blood in Stool. * Medical History: A nxiety/depression, RLS, Psoriasis. [...] 1 tab(s) Orally once a week , Taking Omeprazole 20 MG Capsule Delayed Release 1 capsule 30 minutes before morning meal Orally Once a day , Medication List reviewed and reconciled with the patient * Allergies: A spirin, Amoxicillin. Objective: * Vitals: W t:132.4, Temp:98.7, BP:110/70, HR:83, Nurse:JARET, Ht: 64.50, BMI:22.37. * Examination: G astroenterology: General Appearance: pleasant, NAD, active. H eart sounds: RRR. L ungs: CTAB A&P. A bdomen: BS present, soft, nontender, no guarding or rigidity. Assessment: * Assessment: 1. G astroenteritis - K52.9 (Primary) 2 . G ERD (gastroesophageal reflux disease) - K21.9 Plan: * Treatment: 2. G ERD (gastroesophageal reflux disease) Continue Omeprazole Capsule Delayed Release, 20 MG, 1 capsule 30 minutes before morning meal, Orally, Once a day. Notes: diet as tolerated 3. O thers Notes: discussed smoking cessation methods * Follow Up: p rn * Images: Billing Information: * Visit Code: 12990 Office Visit, Est Pt., Level 3. * Procedure Codes: * Electronic signature of Rand Tay APRN on 11/28/2024 at 09:27 AM EDT Sign off status: Pending * Provider: MISAEL Ramírez Date: 01/17/2024 Generated for Leydi de la cruz/Lourdes/Cheyrl on: 11/28/2024 09:27 AM EDT History and Physical Notes * HPI (History of Present Illness) Category Sub-Category Detail Notes Category Not es Gastroenterology Fever Vomiting Abdominal Pain Diarrhea Blood in Stool Nausea Pt is here today for a follow up on stomach problems. Pt sts she has had stomach aches a few times, but nothing like before. Pt sts she is no longer nausea, vomiting, or having diarrhea. Pt sts she has no other concerns or complaints at this time Abdominal Distension Heartburn Examination Category Sub-Category Detail Notes Category Not es Gastroenterology Heart sounds: RRR Lungs: CTAB A&P Abdomen: BS present, soft, no ntender, no guarding or rigidity General Appearance: pleasant, NAD, activ e
--- OUTSIDE RECORDS SUMMARY | 2024-11-28 09:28 | XMS_ITS | Patient Health Record ---
Author Organization [facility] Address [address] [facility] [address] [place] [id number] Care Team Providers Care Surface Lay Out Technician Name Role Phone Alton Sow Primary Care Provider Tamara Tay Unavailable [phone] Allergies Allergen (clinical drug ingredient) Drug/Non Drug Allergy documented on EMR Reaction Allergy Type Onset Date Status amoxicillin Amoxicillin Unknown Drug Allergy Act luis aspirin Aspirin Unknown Drug Allergy Active Results Component Value Reference Range Notes EKG Reviewed date:08/31/2024 08:35:32 AM Interpretation:SR with Occ PVC; LBBB Performing Lab: Notes/Report: SR with Occ PVC; LBBB Event Recorder Reviewed date:11/28/2024 08:33:49 AM Interpretation: Performing Lab: Notes/Report: Holter Monitor- 48 hour Reviewed date:11/08/2024 12:10:32 PM Interpretation:run of ?VT Performing Lab: Notes/Report: run of ?VT P-Lipid Panel Reviewed date:08/14/2024 10:01:47 AM Interpretation:LDL 90; HDL 64; TG 129 Performing Lab: Notes/Report: Test performed by [facility], [employer] [facility] , [address], [place] [address] Butch Soto MD, [employer] CLIA: [id number] Cholesterol 180 <200 mg/dL Triglycerides 129 <150 [...] Results: 90 Units: mg/dL % Change: - P-Comprehensive Metabolic Pa lizbeth (CMP) Reviewed date:08/14/2024 10:01:34 AM Interpretation:Normal Performing Lab: Notes/Report: Test performed by [facility], [address] , [address], [place] [address] Butch Soto MD, [employer] CLIA: [id number] Sodium 141 135-145 mmol/L Potassium 5.0 3.5-5.3 [...] 0.2 <0.2-1.2 mg/dL A/G Ratio 1.6 1.1-2.5 CBC Venipuncture (in house) Reviewed date:08/14/2024 10:02:36 [...] - 38 platlet 308 100 - 400 CBC Fingerstick (in house) Reviewed date:12/19/2023 02:31:15 [...] - 38 plat 197 100 - 400 Ultrasound : Carotids Reviewed date:08/31/2024 08:34:48 AM Interpretation:less than 50% stenosis Performing Lab: Notes/Report: less than 50% stenosis P-TSH Reviewed date:08/14/2024 10:02:14 AM Interpretation:1.87 Performing Lab: Notes/Report: Test performed by [facility] [address] [place] [address] , [address], [place] [address] Butch Soto MD, [employer] CLIA: [id number] TSH 1.87 0.43-5.25 mU/L P-Magnesium Reviewed date:08/14/2024 10:02:01 AM Interpretation:2.3 Performing Lab: Notes/Report: Test performed by [facility] [address] [place] [address] , [address], [place] [address] Butch Soto MD, [employer] CLIA: [id number] Magnesium 2.3 1.6-2.4 mg/dL Medications Medication SIG (Take, Route, Frequency, Duration) [...] review and pick correct strength-formulatio n from [employer] options. If intended option is not shown, discontinue and re-order from Quick Search* 10/07/2010 Active Alendronate Sodium 70 MG 1 tab(s) Orally once a week; Duration: 28 day(s) 08/02/2018 Active Immunizations Vaccine Route Administration Date Status Comme nts COVID 19 Milly Unknown 01/29/2021 Administered PNEUMOVAX 23 VACCINE IM Intramuscular 07/12/2018 Administe red Tetanus Tdap-Adacel (over 7yrs) IM Intramuscular 07/12/2018 Administered Problems Problem Type SNOMED Code ICD Code Onset Dates Problem Status W/U Status Risk Notes Problem Gastroesophageal reflux disease (120845990) GERD (gastroesophageal reflux disease) (K21.9) Active confirmed Problem Hyperlipidemia (55913342) Hyperlipidemia (E78.5) Active confirmed Problem Sciatic nerve lesion (880337029) Piriformis syndrome of right side (G57.01) Active confirmed Problem Psoriasis (9341582) Psoriasis (L40.9) Active co nfirmed Problem Restless legs (17596244) Restless legs (G25.81) Active confirmed Problem Restless legs (84345456) Restless leg (G25.81) Active confirmed Problem Reactive depression (situational) (21422033) Situational depression (F43.21) Active confirmed Problem Hypothyroidism (71458623) Hypothyroidism (E03.9) Active confirmed Problem Osteoporosis (05656870) Osteoporosis (M81.0) Active confirmed Problem Paresthesia of arm (92135241) Paresthesia of arm (R20.2) Active confirmed Problem Depressive disorder (disorder) (13557327) Depression, unspecified depression type (F32.9) Active confirmed Problem History of nicotine dependence (615311322544465993 ) History of nicotine dependence (Z87.891) Active confirmed Problem Osteoporosis (44595734) Osteoporosis, unspecified (M81.0) Active confirmed Vital Signs Heart Rate 67 /min 08/20/2024 Blood pressure diastolic 80 mm Hg 08/20/2024 Height 64.50 in 08/20/2024 Blood pressure systolic 100 mm Hg 08/20/2024 Weight 134.4 lbs 08/20/2024 BMI 22.71 kg/m2 08/20/2024 Encounters Encounter Location Date [facility] [address] [place] [id number] 12/19/2023 Tamara Aty Gastroenteritis K52. 9 and GERD (gastroesophageal reflux disease) K21.[address] [id number] 01/17/2024 Tamara Tay Gastroenteritis K52. 9 and GERD (gastroesophageal reflux disease) K21.[address] [id number] 08/06/2024 Tamara Tay Restless legs G25.81 ; Near syncope R55 ; Lipid screening Z13.220 ; Situational depression F43.21 ; History of nicotine dependence Z87.891 ; Tobacco abuse Z72.0 and GERD (gastroesophageal reflux disease) K21.9 [facility] [place] [id number] 08/20/2024 Tamara Tay Osteoporosis M81.0 ; History of nicotine dependence Z87.891 ; Near syncope R55 ; Hyperlipidemia E78.5 ; Restless leg G25.81 ; BMI 22.0-22.9, adult Z68.22 ; Tobacco use Z72.0 and Osteoporosis, unspecified M81.0 [facility] [address] [id number] 03/05/2024 Alton [place] Osteoporosis M81.0 Assessments Encounter Date Diagnosis (ICD [...] daily 08/06/2024 Situational depression (ICD-10 - F43.21) 08/06/2024 History of nicotine dependence (ICD-10 - Z87.891) 08/20/2024 Restless leg (ICD-10 - G25.81) suggested Mg++ and vit B12; smokong cessation and good water intake 08/06/2024 Tobacco abuse (ICD-10 - Z72.0) she is now smoking 1 PPD; discussed need to decrease; she is not ready 08/20/2024 BMI 22.0-22.9, adult (ICD-10 - Z68.22) 08/06/2024 GERD (gastroesophageal reflux disease) (ICD-10 - K21.9) 08/20/2024 Tobacco use (ICD-10 - Z72.0) 08/20/2024 Osteoporosis, unspecified (ICD-10 - M81.0) 01/17/2024 Other discussed smoking cessation methods Plan Of Treatment No Information Insurance Providers Payer Name Payer Address Payer Phone Subscriber Number Group Number Insured Name Patient Relationship to Insured Coverage Start Date Coverage End Date [facility] [address] [address] [place], [place] [id number] MELISSA FAGAN Self - patient is the insured Medical (General) History Medical History History ICD Code anxiety/depression RLS psoriasis Surgical History Surgery Date(Month/Year) BTL Hospitalization History Reason Date(Month/Year) same as above
--- NOTE | 2024-11-28 09:42 | XR_ITS ---
FINAL REPORT CLINICAL HISTORY: right wrist fx COMPARISON: 11/20/2024 FINDINGS: RIGHT WRIST THREE VIEW FINDINGS: Three views show a transverse mildly impacted fracture of the radial metaphysis. Impaction deformity is slightly worse. There is sclerosis of the fracture site indicating early healing. There are severe degenerative changes of the lateral carpus. No new abnormality identified. IMPRESSION: Healing fracture distal radius with mild increased impaction. Reviewed, Interpreted and Dictated by Wilmar Parkinson MD Transcribed by aKit Mathew Authenticated and [facility]
== END 2024-11-28 23:59 | disposition home or self-care (01) ==
LOC: RAD 09:20
PROVIDERS: PCP Nurse Practitioner Family; Visit Provider Physician Assistant
DX: S52.501D Unspecified fracture of the lower end of right radius, subsequent encounter for closed fracture with routine healing (principal); X58.XXXD Exposure to other specified factors, subsequent encounter; M19.031 Primary osteoarthritis, right wrist
CPT/HCPCS: 73110

== ENCOUNTER 2024-12-04 10:45 | Outpatient (CLI) | payer MEDICARE, SELFPAY ==
--- OUTSIDE RECORDS SUMMARY | 2021-10-14 12:34 | XMS_ITS | Continuity of Care Document ---
Author Organization [address] [place] [id number] [place] [address] [address] [place] [address] Phone Care Team Providers Care Nuclear Logging Engineer Name Role Phone Lindafernandobrenda Karen Unavailable Unavailable Allergies, Adverse Reactions, Alerts Substance Reaction Status Criticality adhesive tape Active No Information hydrogen peroxide Active No Informa tion PENICILLIN Active No Information Advance Directives Directive Yes / No Effective Date File Name No Information Encounters Encounter Description Practice Location Reason(s) For Visit Diagnoses Date Provider Providers Copied on Encounter [address] [place] [address], [id number] [place], [place] [address], [place], [place], [id number], [place] tel:[phone] [facility] No Information 0 2 Lindamao Lopezcey. . Family History Family Member Type Diagnosis Age At Onset No Information Payers Payer name Insurance type Covered alliance party ID Authoriza tion(s) No Information Social History [...]
--- OUTSIDE RECORDS SUMMARY | 2022-09-09 05:09 | XMS_ITS | Continuity of Care Document ---
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 Unavailable [...] ral route every day in the morning 40 MG - Active Miralax 17 gram/dose oral powder [...] Danny José DO, [address], [place], [place], [facility], tel:[phone] Danny José No Information 3 Arnav Delgado. [address], [address], [place], [facility], . tel:[phone] OFFICE/OUTPAT IENT VISIT, EST Danny José DO, [address], [place], [facility], tel:[phone] Danny José anemia (chief complaint) Body mass index (BMI) 40.0-44.9, adultEssential (primary) hypertensionGastro intestinal hemorrhage, unspecifiedOther fecal abnormalitiesIron deficiency anemia, unspecifiedGastro- esophageal reflux disease without esophagitisDiaphra gmatic hernia without obstruction or gangrene 9 Arnav Delgado. [address], [address], [place], [facility], . tel:[phone] Referring Provider: Priya Lundy, [address], [facility]. tel:[phone] OFFICE/OUTPAT IENT VISIT, EST Danny José DO, [address] [place] [address], [facility], [place] tel:[phone] Danny José Dyspepsia (chief complaint) Body mass index (BMI) 40.0-44.9, adultIrritable bowel syndrome with diarrheaGastropare sisDiaphragmatic hernia without obstruction or gangreneGastro-eso phageal reflux disease without esophagitis 8 Arnav Delgado. [address], [address], [place], [facility], [place]. tel:[phone] Referring Provider: Priya Lundy, [address], [facility]. tel:[phone] OFFICE/OUTPAT IENT VISIT, GRANT Danny Arnav CALDERON, [address] [place] [address], [facility], [place] tel:[phone] Danny José Acid reflux (chief complaint) Diarrhea (chief complaint) Body mass index (BMI) 40.0-44.9, adultEssential (primary) hypertensionDiarrh ea, unspecifiedGastro- esophageal reflux disease without esophagitisDiaphra gmatic hernia without obstruction or gangreneIBS w/ diarrhea 8 Arnav Delgado. [address], [address], [place], [facility], [place]. tel:[phone] Referring Provider: Priya Lundy, [address], [facility]. tel:[phone] OFFICE/OUTPAT IENT VISIT, EST Danny José DO, [address], [place], [facility], tel: [phone] Danny José Acid reflux (chief complaint) Body mass index (BMI) 40.0-44.9, adultEssential (primary) hypertensionGastro -esophageal reflux disease without esophagitisDiaphra gmatic hernia without obstruction or gangreneIrritable bowel syndrome without diarrheaGeneralize d anxiety disorderGastropare sisIron deficiency anemia secondary to blood loss (chronic) 7 Arnav Delgado. [address] [facility], [address], [place], [facility], [place]. tel: [phone] Referring Provider: Priya Lundy, [address], [facility]. tel:[phone] OFFICE/OUTPAT IENT VISIT, [facility] Danny José DO, [address], [place], [facility], [place] tel: [phone] Danny José Anemia (chief complaint) Body mass index (BMI) 40.0-44.9, adultChronic posthemorrhagic anemiaGastro-esoph ageal reflux disease without esophagitisDiaphra gmatic hernia without obstruction or gangreneIrritable bowel syndrome without diarrheaGastropare sisOther fecal abnormalities 6 Arnav Delgado. [address], [place], [facility], [place]. tel: [phone] Referring Provider: Priya Lundy, [address], [facility]. tel:[phone] OFFICE/OUTPAT IENT VISIT, EST Danny José DO, [address], [place], [address], [place] tel: [phone] Danny José Anemia (chief complaint) Nausea/vom iting (chief complaint) Body mass index (BMI) 40.0-44.9, adultEssential (primary) hypertensionGastro intestinal hemorrhage, unspecifiedDiaphra gmatic hernia without obstruction or gangreneGeneralize d anxiety disorderIrritable bowel syndrome without diarrheaGastropare sisVomiting, unspecifiedChronic posthemorrhagic anemiaOther fecal abnormalities May-0 2-201 6 Arnav Delgado. [address], [address], [place], [address], [place]. tel: [phone] Referring Provider: Priya Lundy, [address], [facility]. tel:[phone] OFFICE/OUTPAT IENT VISIT, EST Danny José DO, [address], [place], [facility], [place] tel: [phone] Danny José Nausea/vom iting (chief complaint) Obesity, MorbidHypertension , BenignEsophageal refluxGastroparesi sDiaphragmatic hernia without mention of obstruction or gangreneAnxiety state, unspecified 4 Arnav Delgado. [address], [address], [place], [facility], [place]. tel: [phone] Referring Provider: Priya Lundy, [address], [facility]. tel:[phone] OFFICE/OUTPAT IENT VISIT, GRANT José DO, [address], [place], [facility], [place] tel: [phone] Danny Bronson José Nausea/vom iting (chief complaint) Obesity, MorbidPersistent vomitingGERDHiatal HerniaAnxietyIrrit able Colon 4 Arnav Delgado. [address], [address], [place], [facility], [place]. tel: [phone] Referring Provider: Priya Lundy, [address], [facility]. tel:[phone] OFFICE/OUTPAT IENT VISIT, EST Danny José DO, [address], [place], [address], [place] tel: [phone] Danny José Nausea/vom iting (chief complaint) ObesityGERDHiatal HerniaGastroparesi sPersistent vomitingAnxietyIrr itable Colon 4 Arnav Delgado. [address], [address], [place], [address], [place]. tel: [phone] Referring Provider: Priya Lundy, [address], [facility]. tel:[phone] OFFICE/OUTPAT IENT VISIT, EST Danny José DO, [address], [place], [facility], [place] tel: [phone] Danny José Nausea/vom iting (chief complaint) Abnormal GI study (chief complaint) GastroparesisPersi stent vomitingObesityGER DHiatal HerniaAnxietyIrrit able Colon 4 Arnav Delgado. [address], [address], [place], [facility], [place]. tel: [phone] Referring Provider: Priya Lundy, [address], [facility]. [phone] OFFICE/OUTPAT IENT VISIT, EST Danny José DO, [address], [place], [facility], [place] tel: [phone] Danny José Belching (chief complaint) Diarrhea (chief complaint) DiarrheaObesityNau sea And VomitingDiarrheaGE RDIrritable ColonHiatal HerniaAnxietyAbnor mal Liver Enzymes 4 Arnav Delgado. [address], [address], [place], [facility], [place]. tel: [phone] Referring Provider: Priya Lundy, [address], [facility]. tel:[phone] OFFICE/OUTPAT IENT VISIT, EST Danny José DO, [address], [place], [facility], [place] tel: [phone] Danny José Nausea (chief complaint) GERDHiatal HerniaAnxietyObesi tyIrritable Colon 3 Arnav Delgado. [address], [address], [place], [address], [place]. tel: [phone] Referring Provider: Priya Lundy, [address], [facility]. tel:[phone] OFFICE CONSULTATION Danny José DO, [address], [place], [address], [place] tel: [phone] Danny José HEAVING (chief complaint) Abdominal pain (chief complaint) Weight loss (chief complaint) Irritable ColonLoss of weightObesityAbdom inal pain, epigastricNausea aloneTachycardiaCa rdiac dysrhythmia, unspecified 3 Arnav Delgado. [address], [address], [place], [address], [place]. tel: [phone] Referring Provider: Luly Schultz, [address] [place] [address], [place], [address]. tel:[phone] Family History Family Member Type Diagnosis Age [...] Insurance type Covered constitution party ID Authoriza tion(s) [employer] [facility] [id number] Social History Type Description Quantity Date Captured [...] Goal Tobacco screening. Due on due Goal Zdv-Qwozck-akaph. Due on September due Goal Mammogram. Due [...] loss. Additional information: SEE THE CONSULTATION FROM [facility]. THEY RECOMMENDED THAT THE PATIENT HAD CENTERAL [...]
--- NOTE | 2024-12-04 | CA_ITS ---
APPROVED REPORT Exam: Pharmacologic Technologist: Linda Boone Ht: 5 ft 3 in Wt: 136 lbs BSA: 1.64 m2 HR: 63 bpm BP: 136/76 mmHg Stress Test Details Test: Lexiscan HR Resting HR: 63 bpm Max Heart Rate (APMHR): 153 bpm Max HR Achieved: 82 bpm Target HR (85% APMHR): 130 bpm % of APMHR: 54 Recovery HR: 70 bpm BP Resting BP: 136.0/76.0 mmHg Max BP: 136.0/76.0 mmHg Recovery BP: 128.0/79.0 mmHg ECG Resting ECG: Left bundle branch block Stress ECG Conclusion Symptoms: Dyspnea Arrhythmias/Ectopy: PVCs ST-T Changes: Baseline abnormalities Conclusion: Difficult study due the baseline abnormality. Adap.tvview images are are reported separately. Electronically signed by : Karen Valverde MD 12/04/2024 18:01:34
--- NOTE | 2024-12-04 11:15 | CA_ITS ---
APPROVED REPORT EXAM: Comprehensive 2D, Doppler, and color-flow Echocardiogram Utility Worker: Mackenzie Moses, RCS, RVS Ht: 5 ft 3 in Wt: 136lbs BSA: 1.64 BP: 111/72 mmHg Indications: Abn EKG, Smoker 2D Dimensions IVSd 0.79 cm LVEF (Visual) 6.10 % PWd 1.18 cm LA Volume 38.10 mL LVDd 6.98 cm LA Volume Index 23.635454 mL/m2 (M/F) 16-34 LVDs 6.72 cm EF AP4 2.20 % Aortic Root 2.93 cm GL Strain -6.3 % Left Atrium 3.31 cm LVOT 1.56 cm (M/F) 1.5-2.5 M-Mode Dimensions RVDd 1.16 cm (0.9-2.6) LVDd 6.98 cm (3.5-5.7) Ao Diam 3.48 cm (2.0-3.7) LVDs 8.54 cm (3.5-5.7) IVSd 0.49 cm (0.6-1.1) PWd 1.23 cm (0.6-1.1) EF (Teich) 8.50% EPSs 3.23 cm FS 3.50% EDV (Teich) 435.60 mL TAPSE 1.22 (<1.7) ESV (Teich) 398.50 mL LV Diastology E Decel Time 108 (160-240 msec) E/A Ratio 0.42 MED E' 2.5 (>= 7 cm/sec) MED A' 6.70 cm/s E'/MED E' Ratio 9.96 (<= 14) LAT E' 2.2 (>= 10 cm/sec) LAT A' 6.20 cm/s E/LAT E' Ratio 11.32 (<= 14) Aortic Valve LVOT Max 54.0 (70-110 cm/s) AMAN Index 0.54 cm2/m2 LVOT VTI 8.75 cm AoV Peak Jerson. 117.0 (50-130 cm/s) AI PHT 699.00 ms AO Peak GR. 5.60 mmHg AO Mean GR. 2.80 (<5 mmHg) AO VTI 19.1 (18-25 cm) AMAN (VTI) 0.88 (2.5-4.5 cm2) Mitral Valve MV E Max Jerson. 25.0 (40-130 cm/s) MV A Velocity 59.0 (40-130 cm/s) E/A Ratio 0.42 MV Decel. Time 108 (160-240 ms) Tricuspid Valve TR P. Velocity 224.00 cm/s RAP Estimate 10.00 mmHg RVSP 30.10 mmHg Left Ventricle The left ventricle is severely dilated. Left ventricular systolic function is severely decreased. There is normal left ventricular wall thickness. There is severe global hypokinesis present. The septum is asynchronous. Grade 2 diastolic dysfunction is present. LVEF is 10%. Right Ventricle The right ventricle is normal size. The right ventricular systolic function is normal. Atria Left atrium is mildly dilated. Right atrium is mildly dilated. There is no Doppler evidence of interatrial shunt. Aortic Valve The aortic valve is mildly thickened. There is no aortic valvular stenosis. Mild aortic regurgitation. Mitral Valve The mitral valve is normal in structure. No evidence of mitral valve stenosis. Mild mitral regurgitation. Tricuspid Valve Tricuspid valve is grossly normal in structure and function. Mild tricuspid regurgitation. RVSP is 20-25 mmHg. Pulmonic Valve The pulmonary valve is normal in structure. Trace pulmonic regurgitation. Great Vessels The aortic root is normal in size. IVC is normal in size and collapses >50% with inspiration. Pericardium There is a trivial, circumferential pericardial effusion present. No echo indications of tamponade. Other Information Study Quality: Fair Conclusion Severe LV dilation with severe reduction in LV systolic function (LVEF 10%). Asynchronous septum. Biatrial dilation. Mild MR, mild AI, mild TR. Trivial, circumferential pericardial effusion present. No echo indications of tamponade. In the setting of severe LV dysfunction, further evaluation is recommended, including ischemic evaluation and outpatient cardiac MRI (cardiomyopathy protocol). Electronically signed by : Karen Valverde MD 12/04/2024 17:15:56
--- NOTE | 2024-12-04 12:00 | NM_ITS ---
APPROVED REPORT Exam: Nuclear Stress Test Indication: Abnormal EKG, Abnormal Holter monitor, Syncope, Tobacco use Patient Location: Outpatient Stress Tech: Linda Boone [place] Tech:Micki Ureña, ARRT, RT (R)(N) Ht: 5 ft 5 in Wt: 135 lbs Bra Size: 36A HR: 64 bpm BP: 136/76 mmHg BSA: 1.67 m2 TID: 1.12 BMI: 22.4 History: Abnormal EKG, Abnormal Holter monitor, Syncope, Tobacco use Procedure: Patient received 0.4 mg of intravenous Lexiscan, resting heart rate 64 bpm, resting blood pressure 136/76 mmHg, with Lexiscan maximum heart rate achieved was 83 bpm which is % of the maximum predicted heart rate and blood pressure was 129/75 mmHg. With Lexiscan, patient denied any complaint of chest pain. Cardiac Stress and Resting SPECT Images: Cardiac Stress and Resting SPECT images were obtained using technetium 99m Myoview 32.9 mCi stress and 10.95 mCi at rest. Resting and stress imaging in supine and prone positions demonstrate a large-sized, predominantly fixed perfusion defect in the anterior, septal, anteroseptal, and apical LV graham. There is a small region of reversibility towards the basal to mid anterior LV wall. Gated imaging demonstrates severe LV dilation with severe reduction in LV systolic function. LVEF is calculated at 12%. Conclusion: Large-sized, predominantly fixed perfusion defect in the anterior, septal, anteroseptal, and apical LV graham. There is a small region of reversibility towards the basal to mid anterior LV wall. Findings are suggestive of partial reversible ischemia. Gated imaging demonstrates severe LV dilation with severe reduction in LV systolic function. LVEF is calculated at 12%. Correlation with new or recent TTE is suggested. Electronically signed by : Karen Valverde MD 12/04/2024 17:57:26
[2024-12-04] MEDS: SODIUM CHLORIDE 0.9% 10ML SYR (RAD ONLY) 10 ML IV ×2 (13:14)
[2024-12-04] MEDS: ISOTOPE MYOVIEW (PER STUDY) 1 DOSE IV (13:14)
[2024-12-04] MEDS: DEFINITY US ECHO CONTRAST 2ML INJ 2 MG IV (13:52)
== END 2024-12-04 23:59 | disposition home or self-care (01) ==
LOC: RT 10:46
PROVIDERS: PCP Nurse Practitioner Family; Visit Provider Nurse Practitioner Family
DX: I08.3 Combined rheumatic disorders of mitral, aortic and tricuspid valves (principal); I49.3 Ventricular premature depolarization; I44.7 Left bundle-branch block, unspecified; R93.1 Abnormal findings on diagnostic imaging of heart and coronary circulation; R94.39 Abnormal result of other cardiovascular function study; R94.31 Abnormal electrocardiogram [ECG] [EKG]
CPT/HCPCS: 78452; 93016; 93017; 93018; 93306; A9502; J2785; Q9957

== ENCOUNTER 2024-12-19 08:58 | Outpatient (CLI) | payer MEDICARE, SELFPAY ==
--- OUTSIDE RECORDS SUMMARY | 2024-01-17 09:15 | XMS_ITS ---
Author Organization [facility] Address [address] [place] [id number] Care Team Providers Care Furniture Restorer Name Role Phone Alton Sow Primary Care Provider Tamara Tay Unavailable [phone] Allergies Allergen (clinical drug ingredient) Drug/Non Drug [...] review and pick correct strength-formulatio n from [employer] options. If intended option is not shown, [...] [address] [place] [phone] 01/17/2024 Tamara Tay Gastroenteritis K52. 9 and [...] * MINERVA FAGANOB:[birth year] (69 yo F)Acc No.[id number]:01/17/2024 Progress Notes Patient: MELISSA JEWELL Provider: MISAEL Ramírez :1955 A ge:68 Y S ex:Female Date:01/17/2024 Address:[facility] [address] [facility] [id number] Pcp:Alton Sow Subjective: * Chief Complaints: * [...] * Images: Billing Information: * Visit Code: 53065 Office Visit, Est Pt., Level 3. * Procedure Codes: * Electronic signature of Rand Tay APRN on 12/19/2024 at 09:02 AM EDT Sign off status: Pending * Provider: MISAEL Ramírez Date: 01/17/2024 Generated for Leydi de la cruz/Lourdes/Cheryl on: 0 12/19/2024 09:02 AM EDT History and Physical Notes * [...]
--- NOTE | 2024-12-19 08:58 | XR_ITS ---
FINAL REPORT CLINICAL HISTORY: right wrist fx COMPARISON: 11/28/2024 FINDINGS: AP, oblique, and lateral views of the right wrist were obtained. Plaster cast obscures detail. Again seen is a fracture of the distal right radial metaphysis. On today's exam, there appears to be several millimeters of posterior displacement of the distal fragment. There has been some interval healing. There is mild soft tissue edema. IMPRESSION: Interval healing of a distal radial fracture. Authenticated and ERN
--- OUTSIDE RECORDS SUMMARY | 2024-12-19 09:02 | XMS_ITS | Patient Health Record ---
Author Organization [facility] Address [address] [place] [id number] Care Team Providers Care Retail Sales Specialist Name Role Phone Alton Sow Primary Care Provider [phone] TaySusan vermaTamara Unavailable [phone] Allergies Allergen (clinical drug ingredient) Drug/Non Drug [...] Interpretation:Normal Performing Lab: Notes/Report: Test performed by [email or web address], [facility] [address] [place] [address] , [address], [place] [address] Butch Soto MD, Executive Candidate Developer CLIA: [id number] Sodium 141 135-145 mmol/L Potassium 5.0 3.5-5.3 [...] 129 Performing Lab: Notes/Report: Test performed by [facility], [address] , [address], [place] [address] Butch Soto MD, Executive Candidate Developer CLIA: [id number] Cholesterol 180 <200 mg/dL Triglycerides 129 <150 [...] Results: 90 Units: mg/dL % Change: - P-Magnesium Reviewed date:08/14/2024 10:02:01 AM Interpretation:2.3 Performing Lab: Notes/Report: Test performed by [facility] [address] [place] [address] , [place] [address] Butch Soto MD, Executive Candidate Developer CLIA: [id number] Magnesium 2.3 1.6-2.4 mg/dL P-TSH Reviewed date:08/14/2024 10:02:14 AM Interpretation:1.87 Performing Lab: Notes/Report: Test performed by [facility] [address] [place] [address] , [place] [address] Butch Soto MD, Executive Candidate Developer CLIA: [id number] TSH 1.87 0.43-5.25 mU/L Ultrasound : Carotids Reviewed date:08/31/2024 08:34:48 AM Interpretation:less than 50% stenosis Performing Lab: Notes/Report: less than 50% stenosis EKG Reviewed date:08/31/2024 08:35:32 AM Interpretation:SR with Occ PVC; LBBB Performing Lab: Notes/Report: SR with Occ PVC; LBBB Event Recorder Reviewed date:11/28/2024 08:33:49 AM Interpretation: Performing Lab: Notes/Report: Holter Monitor- 48 hour Reviewed date:11/08/2024 12:10:32 PM Interpretation:run of ?VT Performing Lab: Notes/Report: run of ?VT Medications Medication SIG (Take, Route, Frequency, Duration) [...] review and pick correct strength-formulatio n from PawSpotan options. If intended option is not shown, [...] Status Risk Notes Problem Gastroesophageal reflux disease (213805268) GERD (gastroesophageal reflux disease) (K21.9) Active confirmed Problem Hyperlipidemia (44843361) Hyperlipidemia (E78.5) Active confirmed Problem Sciatic nerve lesion (018949907) Piriformis syndrome of right side (G57.01) Active confirmed Problem Psoriasis (3245579) Psoriasis (L40.9) Active co nfirmed Problem Restless legs (07784062) Restless legs (G25.81) Active confirmed Problem Restless legs (18837876) Restless leg (G25.81) Active confirmed Problem Reactive depression (situational) (69159135) Situational depression (F43.21) Active confirmed Problem Hypothyroidism (57841765) Hypothyroidism (E03.9) Active confirmed Problem Osteoporosis (77991037) Osteoporosis (M81.0) Active confirmed Problem Dyslipidemia (182549857) Dyslipidemia (E78.5) Active confirmed Problem Paresthesia of arm (57845999) Paresthesia of arm (R20.2) Active confirmed Problem Depressive disorder (disorder) (92259021) Depression, unspecified depression type (F32.9) Active confirmed Problem History of nicotine dependence (560361916993832773 ) History of nicotine dependence (Z87.891) Active confirmed Problem Osteoporosis (99620054) Osteoporosis, unspecified (M81.0) Active confirmed Problem Acute systolic heart failure (089614517) Acute systolic heart failure (I50.21) Active confirmed Vital Signs Heart Rate 67 /min 08/20/2024 Blood pressure diastolic 80 mm Hg 08/20/2024 Height 64.50 in 08/20/2024 Blood pressure systolic 100 mm Hg 08/20/2024 Weight 134.4 lbs 08/20/2024 BMI 22.71 kg/m2 08/20/2024 Encounters Encounter Location Date Provider Diagnosis [facility] [address] [place] [id number] 01/17/2024 Tamara Tay Gastroenteritis K52. 9 and GERD (gastroesophageal reflux disease) K21.9 [facility] [facility] [address] [place] [id number] 08/06/2024 Tamara Tay Restless legs G25.81 ; Near syncope R55 ; Lipid screening Z13.220 ; Situational depression F43.21 ; History of nicotine dependence Z87.891 ; Tobacco abuse Z72.0 and GERD (gastroesophageal reflux disease) K21.9 [facility] [facility] [address] [place] [id number] 08/20/2024 Tamara Tay Osteoporosis M81.0 ; History of nicotine dependence Z87.891 ; Near syncope R55 ; Hyperlipidemia E78.5 ; Restless leg G25.81 ; BMI 22.0-22.9, adult Z68.22 ; Tobacco use Z72.0 and Osteoporosis, unspecified M81.0 [facility] [address] [facility] [address] [place] [id number] 03/05/2024 [place] Osteoporosis M81.0 [facility] [facility] [facility] [address] [place] [id number] 12/06/2024 [place] [facility] [address] [place] [id number] 12/07/2024 Al[place] Assessments Encounter Date Diagnosis (ICD Code) Assessment Notes Treatment Notes Treatment Clinical Notes Section Notes 01/17/2024 GERD (gastroesophageal reflux disease) (ICD-10 - [...] of behaviors; suggested gum; she will consider 08/06/2024 Lipid screening (ICD-10 - Z13.220) 08/20/2024 Near syncope (ICD-10 - R55) currently wearing event recorder; strongly suggested that she go to ER if further syncope event 08/20/2024 Hyperlipidemia (ICD-10 - E78.5) to start Crestor and ECASA daily 08/06/2024 Situational depression (ICD-10 - F43.21) 08/06/2024 History of nicotine dependence (ICD-10 - Z87.891) 08/20/2024 Restless leg (ICD-10 - G25.81) suggested Mg++ and vit B12; smokong cessation and good water intake 08/20/2024 BMI 22.0-22.9, adult (ICD-10 - Z68.22) 08/06/2024 Tobacco abuse (ICD-10 - Z72.0) she is now smoking 1 PPD; discussed need to decrease; she is not ready 08/06/2024 GERD (gastroesophageal reflux disease) (ICD-10 - K21.9) 08/20/2024 Tobacco use (ICD-10 - Z72.0) 08/20/2024 Osteoporosis, unspecified (ICD-10 - M81.0) 01/17/2024 Other discussed smoking cessation methods Plan Of Treatment No Information Insurance Providers Payer Name Payer Address Payer Phone Subscriber Number Group Number Insured Name Patient Relationship to Insured Coverage Start Date Coverage End Date [employer] [address] [address] [place], [place] [id number] MELISSA FAGAN Self - patient is the insured Medical (General) History Medical History History ICD Code anxiety/depression RLS psoriasis Surgical History Surgery Date(Month/Year) BTL Hospitalization History Reason Date(Month/Year) same as above
== END 2024-12-19 23:59 | disposition home or self-care (01) ==
LOC: RAD 08:58
PROVIDERS: Visit Provider Physician Assistant
DX: S52.591D Other fractures of lower end of right radius, subsequent encounter for closed fracture with routine healing (principal)
CPT/HCPCS: 73110

== ENCOUNTER 2024-12-20 09:50 | Outpatient (CLI) | payer MEDICARE, SELFPAY ==
--- OUTSIDE RECORDS SUMMARY | 2024-01-17 09:15 | XMS_ITS ---
Author Organization [facility] Address [address] [place] [id number] Care Team Providers Care Prune Washer Name Role Phone Alton Sow Primary Care Provider Tamara Tay Unavailable [phone] Allergies Allergen (clinical drug ingredient) Drug/Non Drug [...] review and pick correct strength-formulatio n from [employer] options. If intended option is not shown, [...] [address] [place] [id number] 01/17/2024 Tamara Tay Gastroenteritis K52. 9 and [...] * MARIANGEL FAGANEDOB:[birth year] (69 yo F)Acc No.[id number]:01/17/2024 Progress Notes Patient: MELISSA JEWELL Provider: MISAEL Ramírez :1955 A ge:68 Y S ex:Female Date:01/17/2024 Address:[facility] [address] [facility] [place], [id number] Pcp:Alton Sow Subjective: * Chief Complaints: * [...] * Images: Billing Information: * Visit Code: 73271 Office Visit, Est Pt., Level 3. * Procedure Codes: * Electronic signature of Rand Tay APRN on 12/20/2024 at 09:55 AM EDT Sign off status: Pending * Provider: MISAEL Ramírez Date: 01/17/2024 Generated for Leydi de la cruz/Lourdes/Cheryl on: 12/20/2024 09:55 AM EDT History and Physical Notes * [...]
--- OUTSIDE RECORDS SUMMARY | 2024-12-20 09:55 | XMS_ITS | Patient Health Record ---
Author Organization [facility] Address [address] [facility] [address] [place] [id number] Care Team Providers Care Pmo Analyst Name Role Phone Alton Sow Primary Care Provider [phone] Tamara Tay Unavailable [phone] Allergies Allergen (clinical drug ingredient) Drug/Non Drug [...] ?VT Performing Lab: Notes/Report: run of ?VT Ultrasound : Carotids Reviewed date:08/31/2024 08:34:48 AM Interpretation:less than 50% stenosis Performing Lab: Notes/Report: less than 50% stenosis P-TSH Reviewed date:08/14/2024 10:02:14 AM Interpretation:1.87 Performing Lab: Notes/Report: Test performed by [facility], [facility] [address] [place] [address] , [address], [place] [address] Butch Soto MD, T Rail Turner CLIA: [id number] TSH 1.87 0.43-5.25 mU/L P-Magnesium Reviewed date:08/14/2024 10:02:01 AM Interpretation:2.3 Performing Lab: Notes/Report: Test performed by [facility] [address] [place] [address] [address], [place] [address] Butch Soto MD, T Rail Turner CLIA: [id number] Magnesium 2.3 1.6-2.4 mg/dL P-Lipid Panel Reviewed date:08/14/2024 10:01:47 AM Interpretation:LDL 90; HDL 64; TG 129 Performing Lab: Notes/Report: Test performed by [facility] [address], [place] [address] Butch Soto MD, T Rail Turner CLIA: [id number] Cholesterol 180 <200 mg/dL Triglycerides 129 <150 [...] Interpretation:Normal Performing Lab: Notes/Report: Test performed by [facility], [facility] [address] [place] [address] , [address], [place] [address] Butch Soto MD, T Rail Turner CLIA: [id number] Sodium 141 135-145 mmol/L Potassium 5.0 3.5-5.3 [...] - 38 platlet 308 100 - 400 Medications Medication SIG (Take, [...] review and pick correct strength-formulatio n from AgroSavfean options. If intended option is not shown, [...] Status Risk Notes Problem Gastroesophageal reflux disease (981219011) GERD (gastroesophageal reflux disease) (K21.9) Active confirmed Problem Hyperlipidemia (82478362) Hyperlipidemia (E78.5) Active confirmed Problem Sciatic nerve lesion (503101995) Piriformis syndrome of right side (G57.01) Active confirmed Problem Psoriasis (9169490) Psoriasis (L40.9) Active co nfirmed Problem Restless legs (47523302) Restless legs (G25.81) Active confirmed Problem Restless legs (02123097) Restless leg (G25.81) Active confirmed Problem Reactive depression (situational) (91446140) Situational depression (F43.21) Active confirmed Problem Hypothyroidism (69111071) Hypothyroidism (E03.9) Active confirmed Problem Osteoporosis (22984799) Osteoporosis (M81.0) Active confirmed Problem Dyslipidemia (491762081) Dyslipidemia (E78.5) Active confirmed Problem Paresthesia of arm (30508192) Paresthesia of arm (R20.2) Active confirmed Problem Depressive disorder (disorder) (23109338) Depression, unspecified depression type (F32.9) Active confirmed Problem History of nicotine dependence (527838729075902599 ) History of nicotine dependence (Z87.891) Active confirmed Problem Osteoporosis (08069275) Osteoporosis, unspecified (M81.0) Active confirmed Problem Acute systolic heart failure (730219889) Acute systolic heart failure (I50.21) Active confirmed Vital Signs Heart Rate 67 /min 08/20/2024 Blood pressure diastolic 80 mm Hg 08/20/2024 Height 64.50 in 08/20/2024 Blood pressure systolic 100 mm Hg 08/20/2024 Weight 134.4 lbs 08/20/2024 BMI 22.71 kg/m2 08/20/2024 Encounters Encounter Location Date Provider Diagnosis [facility] [address] [place] [id number] 01/17/2024 Tamara Tay Gastroenteritis K52. 9 and GERD (gastroesophageal reflux disease) K21.9 [facility] [facility] [address] [place] [id number] 08/06/2024 Tamara Tay Restless legs G25.81 ; Near syncope R55 ; Lipid screening Z13.220 ; Situational depression F43.21 ; History of nicotine dependence Z87.891 ; Tobacco abuse Z72.0 and GERD (gastroesophageal reflux disease) K21.9 [facility] [address] [facility] [address] [place] [id number] 08/20/2024 Tamara Tay Osteoporosis M81.0 ; History of nicotine dependence Z87.891 ; Near syncope R55 ; Hyperlipidemia E78.5 ; Restless leg G25.81 ; BMI 22.0-22.9, adult Z68.22 ; Tobacco use Z72.0 and Osteoporosis, unspecified M81.0 [facility] [address] [facility] [address] [place] [id number] 03/05/2024 Al[place] Osteoporosis M81.0 [facility] [address] [facility] [address] [place] [id number] 12/06/2024 [place] [facility] [address] [place] [id number] 12/07/2024 Al[place] Assessments Encounter Date Diagnosis (ICD Code) Assessment [...] Insured Coverage Start Date Coverage End Date [employer] [address] [address] [place], [place] [id number] MELISSA FAGAN Self - patient is the insured Medical (General) History Medical History History ICD Code anxiety/depression RLS psoriasis Surgical History Surgery Date(Month/Year) BTL Hospitalization History Reason Date(Month/Year) same as above
== END 2024-12-20 23:59 | disposition home or self-care (01) ==
LOC: RAD 09:53
PROVIDERS: PCP Nurse Practitioner Family; Visit Provider Nurse Practitioner
DX: R69 Illness, unspecified (principal)

== ENCOUNTER 2025-01-01 10:05 | Outpatient (CLI) | payer MEDICARE, SELFPAY ==
--- OUTSIDE RECORDS SUMMARY | 2021-10-14 12:34 | XMS_ITS | Continuity of Care Document ---
Author Organization [address] [place] [id number] [place] [address] [address] [place] [address] Phone Care Team Providers Care Group Insurance Specialist Name Role Phone Lindafernandobrenda Karen Unavailable Unavailable Allergies, Adverse Reactions, Alerts Substance Reaction Status Criticality adhesive tape Active No Information hydrogen peroxide Active No Informa tion PENICILLIN Active No Information Advance Directives Directive Yes / No Effective Date File Name No Information Encounters Encounter Description Practice Location Reason(s) For Visit Diagnoses Date Provider Providers Copied on Encounter [address] [place] [address], [address] [facility], [place], [place], [id number], [place] tel:[phone] [facility] No Information 0 2 Lindamao Lopezcey. . Family History Family Member Type Diagnosis Age At Onset No Information Payers Payer name Insurance type Covered democrat ID Authoriza tion(s) No Information Social History Type Description Quantity Date Captured Comments Sex Female Smoking Status No Information Chief Complaint And Reason For Visit No Information Reason For Referral Reason For Referral No Information History Of Present Illness Encounter Date Complaint History Of Prese nt Illness No Information Functional Status Date Functional Assessmen t No Information Instructions Date Instruction Additional Infor mation No Information Assessments Type Assessment Date No Information Patient Care Teams Name Effective Dates (start - stop) Status Members No Information
--- OUTSIDE RECORDS SUMMARY | 2022-09-09 05:09 | XMS_ITS | Continuity of Care Document ---
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 Unavailable [...] Danny José DO, [address], [place], [place], [facility], tel: [phone] Danny José No Information 3 Arnav Delgado. [address], [address], [place], [place], [facility], . tel:[phone] OFFICE/OUTPAT IENT VISIT, EST Danny José DO, [address], [place], [facility], tel: [phone] Danny José anemia (chief complaint) Body mass index (BMI) 40.0-44.9, adultEssential (primary) hypertensionGastro intestinal hemorrhage, unspecifiedOther fecal abnormalitiesIron deficiency anemia, unspecifiedGastro- esophageal reflux disease without esophagitisDiaphra gmatic hernia without obstruction or gangrene 9 Arnav Delgado. [address], [address], [place], [facility], [place]. tel: [phone] Referring Provider: Priya Lundy, [address], [facility]. tel:[phone] OFFICE/OUTPAT IENT VISIT, EST Danny José DO, [address] [facility], [place], [facility], [place] tel:[phone] Danny José Dyspepsia (chief complaint) Body mass index (BMI) 40.0-44.9, adultIrritable bowel syndrome with diarrheaGastropare sisDiaphragmatic hernia without obstruction or gangreneGastro-eso phageal reflux disease without esophagitis 8 Arnav Delgado. [address], [address], [place], [facility], [place]. tel: [phone] Referring Provider: Priya Lundy, [address], [facility]. tel:[phone] OFFICE/OUTPAT IENT VISIT, EST Danny José DO, [address] [place] [address], [facility], [place] tel:[phone] Danny José Acid reflux (chief complaint) Diarrhea (chief complaint) Body mass index (BMI) 40.0-44.9, adultEssential (primary) hypertensionDiarrh ea, unspecifiedGastro- esophageal reflux disease without esophagitisDiaphra gmatic hernia without obstruction or gangreneIBS w/ diarrhea 8 Arnav Delgado. [address], [address], [place], [facility], [place]. tel:[phone] Referring Provider: Priya Lundy, [address], [facility]. tel:[phone] OFFICE/OUTPAT IENT VISIT, EST Danny José DO, [address], [place], [facility], tel: [phone] Danny José Acid reflux (chief complaint) Body mass index (BMI) 40.0-44.9, adultEssential (primary) hypertensionGastro -esophageal reflux disease without esophagitisDiaphra gmatic hernia without obstruction or gangreneIrritable bowel syndrome without diarrheaGeneralize d anxiety disorderGastropare sisIron deficiency anemia secondary to blood loss (chronic) 7 Arnav Delgado. [address] [facility] [address], [address], [place], [facility], [place]. tel: [phone] Referring Provider: Priya Lundy, [place] [address]. tel:[phone] OFFICE/OUTPAT IENT VISIT, EST Danny José DO, [address], [facility], [place] tel: [phone] Danny José Anemia (chief complaint) Body mass index (BMI) 40.0-44.9, adultChronic posthemorrhagic anemiaGastro-esoph ageal reflux disease without esophagitisDiaphra gmatic hernia without obstruction or gangreneIrritable bowel syndrome without diarrheaGastropare sisOther fecal abnormalities 6 Arnav Delgado. [address], [place], [facility], [place]. tel: [phone] Referring Provider: Priya Lundy, [address], [facility]. tel:[phone] OFFICE/OUTPAT IENT VISIT, EST Danny José DO, [address], [place], [facility], [place] tel:[phone] Danny José Anemia (chief complaint) Nausea/vom iting (chief complaint) Body mass index (BMI) 40.0-44.9, adultEssential (primary) hypertensionGastro intestinal hemorrhage, unspecifiedDiaphra gmatic hernia without obstruction or gangreneGeneralize d anxiety disorderIrritable bowel syndrome without diarrheaGastropare sisVomiting, unspecifiedChronic posthemorrhagic anemiaOther fecal abnormalities 6 Arnav Delgado. [address], [address], [place], [facility], [place]. tel: [phone] Referring Provider: Priya Lundy, [address], [facility]. tel:[phone] OFFICE/OUTPAT IENT VISIT, EST Danny José DO, [address], [place], [facility], [place] tel: [phone] Danny Bronson Arnav Nausea/vom iting (chief complaint) Obesity, MorbidHypertension , BenignEsophageal refluxGastroparesi sDiaphragmatic hernia without mention of obstruction or gangreneAnxiety state, unspecified 4 Arnav Delgado. [address], [address], [place], [facility], [place]. tel: [phone] Referring Provider: Priya Lundy, [address], [facility]. tel:[phone] OFFICE/OUTPAT IENT VISIT, GRANT José DO, [address], [place], [facility], [place] tel: [phone] Danny Bronson Arnav Nausea/vom iting (chief complaint) Obesity, MorbidPersistent vomitingGERDHiatal HerniaAnxietyIrrit able Colon 4 Arnav Delgado. [address], [address], [place], [facility], [place]. tel: [phone] Referring Provider: Priya Lundy, [address], [facility]. tel:[phone] OFFICE/OUTPAT IENT VISIT, EST Danny José DO, [address], [place], [facility], [place] tel: [phone] Danny Bronson Arnav Nausea/vom iting (chief complaint) ObesityGERDHiatal HerniaGastroparesi sPersistent vomitingAnxietyIrr itable Colon 4 Arnav Delgado. [address], [address], [place], [facility], [place]. tel: [phone] Referring Provider: Priya Lundy, [address], [facility]. tel:[phone] OFFICE/OUTPAT IENT VISIT, EST Danny José DO, [address], [place], [facility], [place] tel: [phone] Danny José Nausea/vom iting (chief complaint) Abnormal GI study (chief complaint) GastroparesisPersi stent vomitingObesityGER DHiatal HerniaAnxietyIrrit able Colon 4 Arnav Delgado. [address], Suite [facility], [place], [facility], [place]. tel: [phone] Referring Provider: Priya Lundy, [address], [facility]. tel:[phone] OFFICE/OUTPAT IENT VISIT, EST Danny José DO, [address], [place], [facility], [place] tel: [phone] Danny José Belching (chief complaint) Diarrhea (chief complaint) DiarrheaObesityNau sea And VomitingDiarrheaGE RDIrritable ColonHiatal HerniaAnxietyAbnor mal Liver Enzymes 4 Arnav Delgado. [address], [address], [place], [facility], [place]. tel: [phone] Referring Provider: Priya Lundy, [address], [facility]. tel:[phone] OFFICE/OUTPAT IENT VISIT, EST Danny José DO, [address], [place], [facility], [place] tel: [phone] Danny José Nausea (chief complaint) GERDHiatal HerniaAnxietyObesi tyIrritable Colon 3 Arnav Delgado. [address], [address], [place], [address], [place]. tel: [phone] Referring Provider: Priya Lundy, [address], [facility]. [phone] OFFICE CONSULTATION Danny José DO, [address], [place], [address], [place] tel: [phone] Danny José HEAVING (chief complaint) Abdominal pain (chief complaint) Weight loss (chief complaint) Irritable ColonLoss of weightObesityAbdom inal pain, epigastricNausea aloneTachycardiaCa rdiac dysrhythmia, unspecified 3 Arnav Delgado. [address], [address], [place], [address], [place]. tel: [phone] Referring Provider: Luly Schlutz, [address] [place] [address], [place], [address]. tel:[phone] Family History Family Member Type Diagnosis Age [...] Registry Payers Payer name Insurance type Covered republican ID Authoriza tiruperto(s) AETNA [facility] [id number] Social History Type Description Quantity Date Captured Comments Alcohol Use Details Unknown Caffeine Use Details Unknown Tobacco Use Status No Information Smoking Status No Information Sex Female Chief Complaint And Reason For Visit No Information Reason For Referral Reason For Referral No Information Plan Of Treatment Date Type Action Status Goal BMI. Due on due Goal Tobacco Follow-Up. Due on due Goal Colonoscopy. Due on 029 due Goal Tobacco screening. Due on due Goal Epu-Ijsmuu-pjfko. Due on September due Goal Mammogram. Due on 6 due Goal Dietary manageme nt education, guidance, [...] loss. Additional information: SEE THE CONSULTATION FROM [facility]. THEY RECOMMENDED THAT THE PATIENT HAD CENTERAL NAUSEA ---PROBABLY ANXIETY RELATED?. Nausea/vomiting (comments) SHE T AKES ZOFRAN AND USE PHENERGAN GEL ON A REGULAR BASIS Functional Status Date Functional Assessmen t No Information Instructions Date Instruction Additional Infor mindi Dietary management e ducation, guidance, and counseling [...] diarrhea pamphlet Related to Ellie rrhea, unspecified Dietary management e ducation, guidance, and counseling [...]
--- NOTE | 2025-01-01 10:30 | MR_ITS ---
APPROVED REPORT Chimney Repairer: CLINICAL INDICATION Cardiomyopathy evaluation TECHNIQUE Image Acquisition: Cardiac magnetic resonance (CMR) was performed on Siemens Espree MRI 1.5T scanner. Software platform sequences were performed using the Siemens [employer] MR B19 platform. A set of three-plane, low-resolution, large cvykf-[id number]-mizc localizers were initially acquired. Then axial, coronal, sagittal TrueFISP, as well as axial HASTE images, were obtained. These were followed by gated TrueFISP breathold cinematic sequences obtained in the short axis with 8 mm slices and 2 mm gaps, 2-chamber (vertical long axis), 3-chamber, 4-chamber (horizontal long axis). A bolus of contrast was injected intravenously with first-pass sequences obtained in the short axis and four-chamber planes. After approximately 10 minutes, a TI organic gardening teacher sequence was performed to determine the optimal TI time. Using the optimized TI time, delayed contrast enhancement segmented inversion???recovery TurboFLASH sequences were obtained in the short axis, 2-chamber, 3-chamber, and 4-chamber projections. 2D-velocity phase mapping was performed. Functional parameters were calculated by offline analysis on an independent workstation ([employer] Platform, [employer]). Contrast: ProHance??? (Gadoteridol) FINDINGS MORPHOLOGY AND FUNCTION Left ventricle: The left ventricle is severely dilated with spherical remodeling. The indexed left ventricular end-diastolic volume (LVEDVi) is 134 ml/m2 (reference range 57-105 ml/m2 in males, 56-96 ml/m2 in females). Severe reduction in left ventricular systolic function is present. There is normal left ventricular wall thickness. Prominent trabeculations are noted in the distal and apical LV graham. The ratio of non-compacted trabeculated myocardium to compacted myocardium is approximately 3 (i.e. > 2.3). There is severe global hypokinesis present. The septal LV wall is akinetic. LVEF is calculated at 16.0% (reference range 57-77%). Right ventricle: The right ventricle is normal in size. The indexed right ventricular end-diastolic volume (RVEDVi) is 53 ml/m2 (reference range 61-121 ml/m2 in males, 48-112 ml/m2 in females). Normal right ventricular systolic function is present. RVEF is calculated at 50.4% (reference range 52-72% in males, 51-71% in females). Atria: The left atrium is normal in size. The maximum indexed left atrial volume is 30 ml/m2 (reference range 26-52 ml/m2 in males, 27-53 ml/m2 in females). The right atrium is normal in size. The maximum indexed right atrial volume is 25 ml/m2 (reference range 18-90 ml/m2). Aorta: The diameter of the aortic annulus is normal, measuring 25 mm (coronal view reference range 21-30 mm in males, 19-27 mm in females). The diameter of the aortic sinus is normal, measuring 34 mm (coronal view reference range 25-42 mm in males, 24-36 mm in females). The diameter of the sinotubular junction is normal, measuring 22 mm (coronal view reference range 18-32 mm in males, 18-28 mm in females). The diameters of the ascending and descending thoracic aorta are normal. Main pulmonary artery: The main pulmonary artery diameter is normal. Pericardium: The pericardial thickness is normal. The pericardial thickness measures 1.0 mm (normal < 4.0 mm). There is no pericardial effusion. VALVES Mild mitral regurgitation. Mild aortic regurgitation. Mild tricuspid regurgitation. Systolic anterior motion of the mitral valve is not visualized. Ratio of pulmonary to systemic flow, Qp:Qs ratio = 1.24 (normal < or = 1.2, hemodynamically significant shunt > 1.5), demonstrating no evidence of hemodynamically significant shunt. TISSUE CHARACTERIZATION Resting Perfusion: Normal myocardial blood flow at rest. No evidence of resting hypoperfusion. Myocardial Fibrosis and/or edema: No evidence of late gadolinium enhancement is noted, consistent with absence of myocardial scarring, infarction, or necrosis. T2-weighted imaging demonstrates no evidence of myocardial edema or inflammation. OTHER Bilateral pulmonary groundglass opacities noted. IMPRESSION Severe LV dilation with spherical remodeling. Severe reduction in LV systolic function. LVEDVi= 134 ml/m2 and LVEF= 16.0%. Prominent trabeculations are noted in the distal and apical LV graham. The ratio of non-compacted trabeculated myocardium to compacted myocardium is approximately 3.0 (i.e. > 2.3). No evidence of LV thrombus. The septal LV wall is akinetic. Normal RV size with normal RV systolic function. RVEDVi= 53 ml/m2 and RVEF= 50.4%. No atrial enlargement. Mild AI, mild MR, mild TR. No CMR evidence of myocardial scarring, infarction, or necrosis. No evidence of myocardial edema or inflammation. Perfusion analysis demonstrates normal blood flow at rest with no evidence of resting hypoperfusion. Ratio of pulmonary to systemic flow, Qp:Qs ratio = 1.24 (normal < or = 1.2, hemodynamically significant shunt > 1.5), demonstrating no evidence of hemodynamically significant shunt. Bilateral pulmonary groundglass opacities noted. 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 > 2.3). Genetic testing is suggeted. GDMT per HF guidelines is also recommended. COMPARISON None CRITICAL RESULT None COMMUNICATION As above. The findings of this cardiac MR were reviewed, reported, and signed by Igor Valverde MD ([employer] Management Professor). Conclusion Electronically signed by : Karen Valverde MD 01/05/2025 23:24:57
[2025-01-01] MEDS: 0.9 % SODIUM CHLORIDE 50 ML VIAL IV (11:56)
[2025-01-01] MEDS: SODIUM CHLORIDE 0.9% 10ML SYR (RAD ONLY) 10 ML IV (11:56)
[2025-01-01] MEDS: GADOTERIDOL INJ 20ML SYRINGE 15 ML IV (11:56)
== END 2025-01-01 23:59 | disposition home or self-care (01) ==
LOC: RAD 10:05
PROVIDERS: PCP Family Medicine; Visit Provider Nurse Practitioner
DX: I08.3 Combined rheumatic disorders of mitral, aortic and tricuspid valves (principal); I50.21 Acute systolic (congestive) heart failure; R94.31 Abnormal electrocardiogram [ECG] [EKG]; R55 Syncope and collapse; I47.29 Other ventricular tachycardia; I42.9 Cardiomyopathy, unspecified; R93.1 Abnormal findings on diagnostic imaging of heart and coronary circulation; R91.8 Other nonspecific abnormal finding of lung field
CPT/HCPCS: 75561; A9576

== ENCOUNTER 2025-01-16 08:40 | Outpatient (CLI) | payer MEDICARE, SELFPAY ==
--- NOTE | 2025-01-16 08:42 | XR_ITS ---
FINAL REPORT TECHNIQUE: Right wrist 3 views CLINICAL HISTORY: right wrist fx COMPARISON: 12/19/2024 FINDINGS: AP, oblique, and lateral views of the right wrist were obtained. In the interval since the prior exam the cast has been removed. The previously noted distal radial fracture is unchanged. No further callus or bony fusion is identified. The joint spaces are preserved. The soft tissues are normal. IMPRESSION: Previously noted distal radial fracture is unchanged, with no further callus formation or bony union compared to the prior exam of 12/19/2024. Reviewed, Interpreted and Dictated by Natalya Catalan MD Transcribed by Nancy Anders Authenticated and [facility]
== END 2025-01-16 23:59 | disposition home or self-care (01) ==
LOC: RAD 08:40
PROVIDERS: PCP Nurse Practitioner Family; Visit Provider Physician Assistant
DX: S52.501A Unspecified fracture of the lower end of right radius, initial encounter for closed fracture (principal)
CPT/HCPCS: 73110

== ENCOUNTER 2025-02-13 08:32 | Outpatient (CLI) | payer MEDICARE, SELFPAY ==
--- NOTE | 2025-02-13 08:38 | XR_ITS ---
FINAL REPORT CLINICAL HISTORY: right wrist pain fall, fx november COMPARISON: 01/16/2025 FINDINGS: RIGHT WRIST Three views demonstrate no significant change in the distal radial fracture. No further healing is seen. Alignment is stable.. The visualized joint spaces are normally aligned. The soft tissues are unremarkable. IMPRESSION: No significant change in distal radial fracture. Reviewed, Interpreted and Dictated by Natalya Catalan MD Transcribed by Susie Johnson Authenticated and [facility]
== END 2025-02-13 23:59 | disposition home or self-care (01) ==
LOC: RAD 08:33
PROVIDERS: PCP Nurse Practitioner Family; Visit Provider Physician Assistant
DX: S52.501D Unspecified fracture of the lower end of right radius, subsequent encounter for closed fracture with routine healing (principal); W19.XXXD Unspecified fall, subsequent encounter
CPT/HCPCS: 73110

== ENCOUNTER 2025-02-21 09:25 | Outpatient (CLI) | payer MEDICARE, SELFPAY ==
--- OUTSIDE RECORDS SUMMARY | 2021-10-14 12:34 | XMS_ITS | Continuity of Care Document ---
Author Organization [address] [place] [id number] [place] [address] [address] [place] [address] Phone Care Team Providers Care Freight Team Associate Name Role Phone Lindafernandobrenda Karen Unavailable Unavailable Allergies, Adverse Reactions, Alerts Substance Reaction Status Criticality adhesive tape Active No Information hydrogen peroxide Active No Informa tion PENICILLIN Active No Information Advance Directives Directive Yes / No Effective Date File Name No Information Encounters Encounter Description Practice Location Reason(s) For Visit Diagnoses Date Provider Providers Copied on Encounter [address] [place] [address], [address] [facility], [place], [place], [id number], [place] tel:[phone] [facility] No Information 0 2 [...]
--- OUTSIDE RECORDS SUMMARY | 2022-09-09 05:09 | XMS_ITS | Continuity of Care Document ---
Author Organization Danny José DO Address [address] [facility] [address] [place] [address] Phone Care Team Providers Care Transfer Controller Name Role Phone Danny José D.O. Unavailable Unavailable Allergies, Adverse Reactions, Alerts Substance Reaction Status Criticality iron Active No Information hydrogen peroxide Active No Informa tion Penicillins Active No Information Medications Medication Instructions Dosage Effective Dates (start - stop) Status Comments Cozaar 50 mg tablet take 1 tablet by ora l route every day 50 MG - Active Prozac 40 mg capsule take 1 capsule by o ral route every day in the morning - Active Miralax 17 gram/dose oral powder take by oral route as directed FOR BOWEL PREP FOR COLONSCOPY - Active Viibryd 10 mg tablet - Activ e Rexulti 1 mg tablet take 2 tablet by ora l route every day 2 MG - Active omeprazole 40 mg capsule,delayed release take 1 capsule by oral route every day before a meal 40 MG - Active Questran 4 gram powder for susp in a packet take 1 packet by oral route in water every day - Active Urecholine 10 mg tablet take 1 tablet by oral route 3 times every day on an empty stomach, 1 hour before or 2 hours after a meal 10 MG - Active meclizine 25 mg tablet take 1 tablet by oral route 3 times every day as needed 25 MG - Active mirtazapine 45 mg tablet take 1 tablet by oral route every day before bedtime 45 MG - Active carvedilol 25 mg tablet take 1 tablet by oral route every day with food 25 MG - Active amlodipine 2.5 mg tablet take 1 tablet by oral route every day 2.5 MG - Active Vitamin D3 5,000 unit tablet take 1 by oral route every month 1 - Active iron 325 mg (65 mg iron) tablet take 1 tablet by oral route every day 325 MG - Active Synthroid 200 mcg tablet take 1 tablet by oral route every day 200 MCG - Active Procedures Procedure Date BLOOD OCCULT PEROXIDASE OFFICE/OUTPATIENT VISIT, EST BLOOD OCCULT PEROXIDASE OFFICE/OUTPATIENT VISIT, EST BLOOD OCCULT PEROXIDASE OFFICE/OUTPATIENT VISIT, EST OFFICE/OUTPATIENT VISIT, EST BLOOD OCCULT PEROXIDASE OFFICE/OUTPATIENT VISIT, EST BLOOD OCCULT PEROXIDASE OFFICE/OUTPATIENT VISIT, EST OFFICE/OUTPATIENT VISIT, EST OFFICE/OUTPATIENT VISIT, EST OFFICE/OUTPATIENT VISIT, EST OFFICE/OUTPATIENT VISIT, EST BLOOD OCCULT PEROXIDASE OFFICE/OUTPATIENT VISIT, EST OFFICE/OUTPATIENT VISIT, EST BLOOD OCCULT PEROXIDASE ELECTROCARDIOGRAM, COMPLETE OFFICE CONSULTATION Advance Directives Directive Yes / No Effective Date File Name No Information Encounters Encounter Description Practice Location Reason(s) For Visit Diagnoses Date Provider Providers Copied on Encounter Danny José DO, [address], [place], [place], [place], tel: [phone] Danny José No Information 3 Arnav Delgado. [address], [place], [place], [place], . tel:[phone] OFFICE/OUTPAT IENT VISIT, EST Danny José DO, [address], [place], [place], [place], tel: [phone] Danny José anemia (chief complaint) Body mass index (BMI) 40.0-44.9, adultEssential (primary) hypertensionGastro intestinal hemorrhage, unspecifiedOther fecal abnormalitiesIron deficiency anemia, unspecifiedGastro- esophageal reflux disease without esophagitisDiaphra gmatic hernia without obstruction or gangrene 9 Arnav Delgado. [address], [place], [place], [place], [place]. tel: [phone] Referring Provider: Priya Lundy, [address], [place]. tel:[phone] OFFICE/OUTPAT IENT VISIT, EST Danny José DO, [address] [facility], [place], [place], [place], [place] tel:[phone] Danny José Dyspepsia (chief complaint) Body mass index (BMI) 40.0-44.9, adultIrritable bowel syndrome with diarrheaGastropare sisDiaphragmatic hernia without obstruction or gangreneGastro-eso phageal reflux disease without esophagitis 8 Arnav Delgado. [address], [address], [place], [place], [place], [place]. tel: [phone] Referring Provider: Priya Lundy, [address], [place]. tel:[phone] OFFICE/OUTPAT IENT VISIT, EST Danny José DO, [address] [place] [address], [place], [place] tel:[phone] Danny José Acid reflux (chief complaint) Diarrhea (chief complaint) Body mass index (BMI) 40.0-44.9, adultEssential (primary) hypertensionDiarrh ea, unspecifiedGastro- esophageal reflux disease without esophagitisDiaphra gmatic hernia without obstruction or gangreneIBS w/ diarrhea 8 Arnav Delgado. [address], [address], [place], [place], [place], [place]. tel:[phone] Referring Provider: Priya Lundy, [address], [place]. tel:[phone] OFFICE/OUTPAT IENT VISIT, EST Danny José DO, [address], [place], [place], [place], tel: [phone] Danny José Acid reflux (chief complaint) Body mass index (BMI) 40.0-44.9, adultEssential (primary) hypertensionGastro -esophageal reflux disease without esophagitisDiaphra gmatic hernia without obstruction or gangreneIrritable bowel syndrome without diarrheaGeneralize d anxiety disorderGastropare sisIron deficiency anemia secondary to blood loss (chronic) 7 Arnav Delgado. [address] [facility], [address], [place], [place], [place], [place]. tel: [phone] Referring Provider: Priya Lundy, [place] [address]. tel:[phone] OFFICE/OUTPAT IENT VISIT, EST Danny José DO, [address], [place], [place] tel: [phone] Danny José Anemia (chief complaint) Body mass index (BMI) 40.0-44.9, adultChronic posthemorrhagic anemiaGastro-esoph ageal reflux disease without esophagitisDiaphra gmatic hernia without obstruction or gangreneIrritable bowel syndrome without diarrheaGastropare sisOther fecal abnormalities 6 Arnav Delgado. [address], [place], [place], [place]. tel: [phone] Referring Provider: Priya Lundy, [address], [place]. tel:[phone] OFFICE/OUTPAT IENT VISIT, EST Danny José DO, [address] [facility], [place], [place], [place] tel:[phone] Danny José Anemia (chief complaint) Nausea/vom iting (chief complaint) Body mass index (BMI) 40.0-44.9, adultEssential (primary) hypertensionGastro intestinal hemorrhage, unspecifiedDiaphra gmatic hernia without obstruction or gangreneGeneralize d anxiety disorderIrritable bowel syndrome without diarrheaGastropare sisVomiting, unspecifiedChronic posthemorrhagic anemiaOther fecal abnormalities 6 Arnav Delgado. [address], [address], [place], [place], [place]. tel: [phone] Referring Provider: Priya Lundy, [address], [place]. tel:[phone] OFFICE/OUTPAT IENT VISIT, EST Danny Jsoé DO, [address], [place], [place], [place] tel: [phone] Danny Bronson Arnav Nausea/vom iting (chief complaint) Obesity, MorbidHypertension , BenignEsophageal refluxGastroparesi sDiaphragmatic hernia without mention of obstruction or gangreneAnxiety state, unspecified 4 Arnav Delgado. [address], [address], [place], [place], [place]. tel: [phone] Referring Provider: Priya Lundy, [address], [place]. tel:[phone] OFFICE/OUTPAT IENT VISIT, GRANT José DO, [address], [place], [place], [place] tel: [phone] Danny Bronson Arnav Nausea/vom iting (chief complaint) Obesity, MorbidPersistent vomitingGERDHiatal HerniaAnxietyIrrit able Colon 4 Arnav Delgado. [address], [address], [place], [place], [place]. tel: [phone] Referring Provider: Priya Lundy, [address], [place]. tel:[phone] OFFICE/OUTPAT IENT VISIT, EST Danny José DO, [address], [place], [place], [place] tel: [phone] Danny Bronson Arnav Nausea/vom iting (chief complaint) ObesityGERDHiatal HerniaGastroparesi sPersistent vomitingAnxietyIrr itable Colon 4 Arnav Delgado. [address], [address], [place], [place], [place]. tel: [phone] Referring Provider: Priya Lundy, [address], [place]. tel:[phone] OFFICE/OUTPAT IENT VISIT, EST Danny José DO, [address], [place], [place], [place] tel: [phone] Danny José Nausea/vom iting (chief complaint) Abnormal GI study (chief complaint) GastroparesisPersi stent vomitingObesityGER DHiatal HerniaAnxietyIrrit able Colon 4 Arnav Delgado. [address], [address] [facility], [place], [place], [place], [place]. tel: [phone] Referring Provider: Priya Lundy, [address], [place]. tel:[phone] OFFICE/OUTPAT IENT VISIT, EST Danny José DO, [address], [place], [place], [place] tel: [phone] Danny José Belching (chief complaint) Diarrhea (chief complaint) DiarrheaObesityNau sea And VomitingDiarrheaGE RDIrritable ColonHiatal HerniaAnxietyAbnor mal Liver Enzymes 4 Arnav Delgado. [address], [address], [place], [place], [place]. tel: [phone] Referring Provider: Priya Lundy, [address], [place]. tel:[phone] OFFICE/OUTPAT IENT VISIT, EST Danny José DO, [address], [place], [place], [place] tel: [phone] Danny José Nausea (chief complaint) GERDHiatal HerniaAnxietyObesi tyIrritable Colon 3 Arnav Delgado. [address], [address], [place], [address], [place]. tel: [phone] Referring Provider: Priya Lundy, [address], [place]. [phone] OFFICE CONSULTATION Danny José DO, [address], [place], [address], [place] tel: [phone] Danny José HEAVING (chief complaint) Abdominal pain (chief complaint) Weight loss (chief complaint) Irritable ColonLoss of weightObesityAbdom inal pain, epigastricNausea aloneTachycardiaCa rdiac dysrhythmia, unspecified 3 Arnav Delgado. [address], [address], [place], [address], [place]. tel: [phone] Referring Provider: Luly Schultz, [address] [place] [address], [place], [address]. tel:[phone] Family History Family Member Type Diagnosis Age At Onset Problem (finding) Family history of osteo porosis Problem (finding) Family history of hyper tension Problem (finding) Family history of Menta l illness Problem (finding) Family history of depre ssion Immunizations Vaccine Date Status Comments Flu (split) (3 yrs or older) administered Source: Other Provider Flu (split) (3 yrs or older) administered Note: Invalid documented admin date was . ; Source: Other Provider Flu (split) (3 yrs or older) administered Note: per patient.Invalid documented admin date was . ; Source: Other Registry Payers Payer name Insurance type Covered constitution party ID Authoriza tiruperto(s) [employer] [facility] [id number] Social History Type Description Quantity Date Captured Comments Alcohol Use Details Unknown Caffeine Use Details Unknown Tobacco Use Status No Information Smoking Status No Information Sex Female Chief Complaint And Reason For Visit No Information Reason For Referral Reason For Referral No Information Plan Of Treatment Date Type Action Status Goal Mammogram. Due on 6 due Goal Kpi-[id number]-[id number]. Due on September due Goal Tobacco screening. Due on due Goal Colonoscopy. Due on 029 due Goal Tobacco Follow-Up. Due on Ma due Goal BMI. Due on due Goal Dietary manageme nt education, guidance, and counseling completed Goal Dietary manageme nt education, guidance, and counseling completed Goal Dietary manageme nt education, guidance, and counseling completed Goal Dietary manageme nt education, guidance, and counseling completed Goal Dietary manageme nt education, guidance, and counseling completed Goal Dietary manageme nt education, guidance, and counseling completed Goal Dietary manageme nt education, guidance, and counseling completed Referral Ordered: GI TRACT CAPSULE ENDOSCOPY Appointment date/timeframe: 11/19/2015 ordered Referral Ordered: DIAGNOSTIC COLONOSCOPY Appointment date/timeframe: 09/22/2015 ordered Referral Ordered: EGD,BIOPSY Appointment date/timeframe: 09/22/2015 ordered Referral Ordered: COLONOSCOPY AND BIOPSY Appointment date/timeframe: 06/04/2013 ordered Referral Ordered: GASTRIC EMPTYING STUDY Appointment date/timeframe: 06/01/2013 ordered Referral Ordered: CT ABDOMEN&PELVIS W/CONTRAST Appointment date/timeframe: 05/30/2013 ordered Referral Ordered: UPPER GI ENDOSCOPY, BIOPSY Appointment date/timeframe: 12/05/2012 ordered Patient Education Colonoscopy: What to Ex pect at Home completed Patient Education Gastroparesis: [facility] En~ completed History Of Present Illness Encounter Date Complaint History Of Prese nt Illness anemia Melissa Walker is a 62 year old female who presents for followup of anemia. The problem is controlled. The onset was gradual. The severity is moderate. Hemoglobin is 6 AND received transfusion g/dL. It is classified as uncertain anemia. The anemia is managed with iron. The pertinent history includes: history in 2015 with unremarkable evaluation hernia/gastric polyp/ incomplete sm capsule. Dyspepsia Onset: gradual. Severity level: moderate. Duration: varies. It occurs randomly. The problem is improving. Context/Risk factors: gastroparesis???.Denies aggravating factors. Relieving factors include urecholine and omperazole. Pertinent negatives include, abdominal distention, anorexia, bloating, dysphagia, early satiety, epigastric pain, GI bleeding, heartburn, milk/dairy intolerance, postprandial fullness, vomiting and weight loss. Acid reflux The onset of the heartburn was sudden. The severity is moderate. Duration: varies. The problem is improving. The patient reports heartburn. It occurs randomly. Context: treatment with PPIs. The symptoms are aggravated by spicy foods. The symptoms are relieved by antacids and PPI. Associated symptoms include nausea, reflux and sore throat. Pertinent negatives include aspiration, awakens w/ choking or heartburn, chronic cough, dental erosions, dysphagia, dyspnea, globus sensation, halitosis, hoarseness, melena, pneumonitis, post-nasal drainage, stridor, vomiting, weight gain and weight loss. Diarrhea Onset: gradual. Severity level is: moderate-severe. Stool frequency: intermittently. The patient's self describes it as loose. It occurs randomly. The problem is worse. Context: S/P cholecystectomy. She denies aggravating factors. She denies relieving factors. Associated symptoms include abdominal pain, bloating, cramping (abdominal), distention (abdominal) and flatulence. Pertinent negatives include anorexia, blood in stool, change in appetite, decreased urine output, fecal incontinence, fever, joint pain, nausea, rash, tenesmus, vomiting and weight loss. Additional information: no family history of colon cancer. Acid reflux The onset of the heartburn was sudden. The severity is mild-moderate. Duration: varies. The problem is not changing. The patient reports heartburn. It occurs randomly. Context: treatment with PPIs. The symptoms are aggravated by spicy foods. The symptoms are relieved by antacids. Associated symptoms include reflux. Pertinent negatives include aspiration, awakens w/ choking or heartburn, chronic cough, dental erosions, dysphagia, dyspnea, globus sensation, halitosis, hoarseness, melena, nausea, pneumonitis, post-nasal drainage, sore throat, stridor, vomiting, weight gain and weight loss. Additional information: DOING MUCH BETTER SINCE HER NERVES ARE CONTROLLED Anemia The anemia began in 2015. The symptom(s) began gradually. The patient describes it as a severity of moderate. Type of anemia was acquired for deficiency anemia (iron deficient). The problem is stable. Relevant medical history includes OCCULT BLOOD IN STOOLS. The patient has been managed with medication (iron supplements). Pertinent negatives include abdominal pain, amenorrhea, anorexia, black tarry stools, bleeding gums, bone pain, brittle nails, chest pain, chills, cold intolerance, constipation, dark urine, decreased libido, depression, diarrhea, dizziness, dyspnea, fatigue, gait disturbance, headache, hypotension, impaired sense of smell, impotence, irritability, jaundice, joint pain, nausea, numbness, pagophagia, pallor, pica, pigment change, sore mouth, sore tongue, syncope, tachycardia, tingling, vomiting, weakness and weight loss. Additional information: EGD SHOWS THAT NO EVIDENCE OF ANY PEPTIC ULCER DISEASE AND NEGATIVE FOR CELIAC------LAST HEMOGLOBIN WAS 9+. Anemia The anemia began in 2015. The symptom(s) began gradually. The patient describes it as a severity of moderate. Type of anemia was acquired for deficiency anemia (iron deficient). The problem is getting worse. The patient reports no relevant medical history. The patient's anemia has not been managed with any medical interventions. Pertinent negatives include abdominal pain, amenorrhea, anorexia, black tarry stools, bleeding gums, bone pain, brittle nails, chest pain, chills, cold intolerance, constipation, dark urine, decreased libido, depression, diarrhea, dizziness, dyspnea, fatigue, gait disturbance, headache, hypotension, impaired sense of smell, impotence, irritability, jaundice, joint pain, nausea, numbness, pagophagia, pallor, pica, pigment change, sore mouth, sore tongue, syncope, tachycardia, tingling, vomiting, weakness and weight loss. Additional information: HEMOGLOBIN 9.7. SHE CANNOT TAKE ANY ORAL IRON IT CAUSES HER TO ITCH. Nausea/vomiting Onset: gradual. Severity level is: moderate. Duration: varies. The patient's self describes it as stomach contents. The problem is improving. Context: GASTROPARESIS. Symptom is aggravated by stress. Relieving factors include WHEN SHE HAS GOTTEN HER NERVES BETTER. Pertinent negatives include abdominal pain, anorexia, bloating, blood in stool, cramping (abdominal), decreased urine output, dehydration, distention (abdominal), fecal incontinence, fever, flatulence, joint pain, nausea, rash, tenesmus, vomiting and weight loss. Nausea/vomiting The patient desc ribes it as clear fluid. Vomiting 3 times / week. The problem is with no change. Context: PROBABLE SOME DEGREE OF GASTRO[PARESIS. Denies aggravating factors. Relieving factors include IMPROVED WITH EMYCIN BUT NOT RESOLVED. Associated symptoms include abdominal pain. Pertinent negatives include anorexia, bloating, blood in stool, cramping (abdominal), decreased urine output, dehydration, distention (abdominal), fecal incontinence, fever, flatulence, joint pain, nausea, rash, tenesmus, vomiting and weight loss. Additional information: SEE THE CONSULTATION FROM [facility]. THEY RECOMMENDED THAT THE PATIENT HAD CENTERAL NAUSEA ---PROBABLY ANXIETY RELATED?. Nausea/vomiting (comments) SHE T AKES ZOFRAN AND USE PHENERGAN GEL ON A REGULAR BASIS Functional Status Date Functional Assessmen t No Information Instructions Date Instruction Additional Infor mindi Diet education (procedure) Relat ed to Essential (primary) hypertension Dietary management e ducation, guidance, and counseling Related to Body mass index (BMI) 40.0-44.9, adult Dietary management e ducation, guidance, and counseling Related to Body mass index (BMI) 40.0-44.9, adult Dietary management e ducation, guidance, and counseling Related to Body mass index (BMI) 40.0-44.9, adult Diet education (procedure) Relat ed to Essential (primary) hypertension diarrhea pamphlet Related to Ellie rrhea, unspecified Diet education (procedure) Relat ed to Essential (primary) hypertension GERD PAMPHLET Related to Gastr o-esophageal reflux disease without esophagitis Dietary management e ducation, guidance, and counseling Related to Body mass index (BMI) 40.0-44.9, adult Dietary management e ducation, guidance, and counseling Related to Body mass index (BMI) 40.0-44.9, adult Dietary management e ducation, guidance, and counseling Related to Body mass index (BMI) 40.0-44.9, adult Diet education (procedure) Relat ed to Essential (primary) hypertension Dietary management e ducation, guidance, and counseling Related to Morbid obesity Diet education (procedure) Relat ed to Benign essential hypertension Dietary counseling Related to Mo rbid obesity, BMI 40 or more Dietary counseling Related to Ob esity unspecified, BMI 30-39 Dietary counseling Related to Ob esity unspecified, BMI 30-39 Dietary counseling Related to Ob esity unspecified, BMI 30-39 Dietary counseling Related to Ob esity unspecified, BMI 30-39 Dietary counseling Related to Ob esity unspecified, BMI 30-39 Assessments Type Assessment Date No Information Patient Care Teams Name Effective Dates (start - stop) Status Members No Information
--- OUTSIDE RECORDS SUMMARY | 2023-12-19 09:45 | XMS_ITS ---
Author Organization [facility] Address [address] [place] [id number] Care Team Providers Care Book Cutter Name Role Phone Alton Sow Primary Care Provider Tamara Tay Unavailable [phone] Allergies Allergen (clinical drug ingredient) Drug/Non Drug Allergy documented on EMR Reaction Allergy Type Onset Date Status amoxicillin Amoxicillin Unknown Drug Allergy Act luis aspirin Aspirin Unknown Drug Allergy Active Results Component Value Reference Range Notes CBC Fingerstick (in house) Reviewed date:12/19/2023 02:31:15 PM Interpretation: Performing Lab: Notes/Report: wbc 11.5 3.5 - 10 lym 31.3 15 - 50 mid 6.8 2 - 15 gran 61.9 35 - 80 rbc 4.45 3.5 - 5.5 hgb 13.8 11.5 - 16.5 hct 43.5 35 - 55 mcv 97.7 75 - 100 mch 31.1 25 - 35 mchc 31.8 31 - 38 plat 197 100 - 400 REASON FOR VISIT stomach issues Medications Medication SIG (Take, Route, Frequency, Duration) Notes Start Date End Date Status Vitamin D (Cholecalciferol) 2000 I.U. 1 TAB(S) ONCE A DAY *Please review and pick correct strength-formulat ion from Medispan options. If intended option is not shown, discontinue and re-order from Quick Search* 10/07/2010 Active Sertraline HCl 100 MG 1 tab(s) orally once a day Active Omeprazole 20 MG 1 capsule 30 minutes before morning meal Orally Once a day; Duration: 30 day(s) 12/19/2023 Active rOPINIRole HCl 3 MG 1 tab(s) orally once a day at bedtime 06/07/2012 Active Alendronate Sodium 70 MG 1 tab(s) Orally once a week; Duration: 28 day(s) 08/02/2018 Active PriLOSEC 40 MG 1 TAB(S) ORAL ONCE A DAY *Please review and pick correct strength-formulat ion from [email or web address] options. If intended option is not shown, discontinue and re-order from Quick Search* Not-Taking Medrol 4 MG as directed orally daily; Duration: 6 days 10/16/2020 Not-Taking Meloxicam 15 MG 1 tab(s) orally once a day; Duration: 30 day(s) 08/18/2016 Not-Taking traZODone HCl 100 MG 2 tab(s) orally qhs Active Armodafinil 50 MG 1 tablet Orally Once a day Active Gabapentin 300 MG 1 tab(s) orally three times a day 01/17/2012 Not-Taking Levothyroxine Sodium 75 MCG 1 tab(s) orally once a day Not-Taking Aspirin 81 81MG DIRECTED QD *Please review and pick correct strength-formulat ion from [email or web address] options. If intended option is not shown, discontinue and re-order from Quick Search* 08/22/2013 Not-Taking Problems Problem Type SNOMED Code ICD Code Onset Dates Problem Status W/U Status Risk Notes Problem Gastroesophageal reflux disease (993323565) GERD (gastroeso phageal reflux disease) (K21.9) Active confirmed Vital Signs Weight 130.2 lbs 12/19/2023 Blood pressure systolic 108 mm Hg 12/19/19 24 Blood pressure diastolic 70 mm Hg 024 Heart Rate 88 /min 12/19/2023 Height 64.50 in 12/19/2023 BMI 22.00 kg/m2 12/19/2023 Encounters Encounter Location Date Provider Diagnosis [facility] [address] [place] [id number] 12/19/2023 Tamara Tay Gastroenteritis K52. 9 and GERD (gastroesophageal reflux disease) K21.9 Assessments Encounter Date Diagnosis (ICD Code) Assessment Notes Treatment Notes Treatment Clinical Notes Section Notes 12/19/2023 Gastroenteritis (ICD-10 - K52.9) bland diet; increase water intake 12/19/2023 GERD (gastroesophageal reflux disease) (ICD-10 - K21.9) bland diet ; smoking cessation Plan Of Treatment Medication Medication Name Sig Start Date Stop Date Notes Omeprazole 20 MG 1 capsule 30 minutes before morning meal Orally Once a day; Duration: 30 day(s) 12/19/2023 Treatment Notes Assessment Notes Gastroenteritis bland diet; increase water intake GERD (gastroesophageal reflux disease) b land diet ; smoking cessation Next Appt Details Follow Up: 3 Weeks,and prn, Reason: Progress Notes * MARIANGEL FAGANEDOB:[birth year] (69 yo F)Acc No.[id number]:12/19/2023 Progress Notes Patient: MIGUEL JEWELL Provider: MISAEL Ramírez :1955 A ge:68 Y S ex:Female Date:12/19/2023 Address:[address] [place] [address], [place], [id number] Pcp:Alton Sow Subjective: * Chief Complaints: * 1 . Stomach issues. * HPI: G astroenterology: reviewed results of colonoscopy of 09/30/2023 which was noted as normal. 68 year old female presents with c/o Abdominal Pain P t presents today with c/o nausea, vomiting, diarrhea and syncope. Pt sts that Tuesday morning she started getting sick. Pt sts that she will start having abdominal pains and get up to go to the rest room and she feels very dizzy like she is going to pass out. Pt sts that she vomited up brown substance that looked similar to coffee grounds and sts that when she had a BM that it was blood. Pt sts that she has had issues like this with her stomach before but sts that she had no blood in her stool and her vomit did not look like it did this time. Pt sts that she feels shaky and that her body is jittery.? c/o Heartburn n one at present. c/o Nausea n o nausea now. c/o Vomiting. c/o Diarrhea h ad one large amount of diarrhea stool with the abdominal cramping followed later by small amount of blood. c/o Blood in Stool s mall amount after initial diarrhea.? Denies : Hemetemesis. last vomited once 12/18/2023 in AM; has not eaten today ; has been drinking Sprite. C ardiology: Pt sts that she does not remember getting the results of her carotid duplex that she had done in May. * ROS: D ERMATOLOGY: no R yadira. n o H wilman. G ASTROENTEROLOGY: Nausea y es. V omiting y es. D iarrhea y es. U ROLOGY: no D ifficulty urinating. n o B lood in urine. * Medical History: A nxiety/depression, RLS, Psoriasis. * Surgical History: B TL . * Hospitalization/Major Diagno stic Procedure: s brendan as above . * Family History: F ather: , suicide. M other: , old age. P aternal Grand Father: . P aternal Grand Mother: . M aternal Grand Father: . M aternal Grand Mother: . 4 brother(s) , 1 sister(s) . 1 son(s) , 1 daughter(s) . . no breast or female cancer; no colon cancer. * Social History: C URRENT TOBACCO USE S moking Status: Patient does smoke, packs per day: 1, Smoking preference: cigarettes. C affeine: no. Exercise: no. Home smoke detector use: yes. Marital Status: . New since last visit: none. Past smoking status: yes, PPD: 1 PPD , since 17 years of age, determination: has tried to quit a few times. Recreational drug use: no. Alcohol: no. Sexually active: no.. * Medications: T aking Armodafinil 50 MG Tablet 1 tablet Orally Once a day , Taking traZODone HCl 100 MG Tablet 2 tab(s) orally qhs , Taking Vitamin D (Cholecalciferol) 2000 I.U. 1 TAB(S) ONCE A DAY , Notes to Pharmacist: *Please review and pick correct strength-formulation from Medispan options. If intended option is not shown, discontinue and re-order from Quick Search*, Taking rOPINIRole HCl 3 MG Tablet 1 tab(s) orally once a day at bedtime , Taking Sertraline HCl 100 MG Tablet 1 tab(s) orally once a day , Taking Alendronate Sodium 70 MG Tablet 1 tab(s) Orally once a week , Not-Taking Levothyroxine Sodium 75 MCG Tablet 1 tab(s) orally once a day , Not-Taking Gabapentin 300 MG Capsule 1 tab(s) orally three times a day , Not- Taking Aspirin 81 81MG DIRECTED QD , Notes to Pharmacist: *Please review and pick correct strength-formulation from Medispan options. If intended option is not shown, discontinue and re-order from Quick Search*, Not-Taking PriLOSEC 40 MG 1 TAB(S) ORAL ONCE A DAY , Notes to Pharmacist: *Please review and pick correct strength-formulation from Medispan options. If intended option is not shown, discontinue and re-order from Quick Search*, Not-Taking Meloxicam 15 MG Tablet 1 tab(s) orally once a day , Not-Taking Medrol 4 MG Tablet Therapy Pack as directed orally daily , Medication List reviewed and reconciled with the patient * Allergies: A spirin, Amoxicillin. Objective: * Vitals: W t:130.2, Temp:98.0, BP:108/70, HR:88, Nurse:KAMAR, Ht: 64.50, BMI:22.00. * Examination: G eneral Examination: General Appearance: NAD, alert, pleasant; thin. H EENT: sclera and conjunctiva clear, PERRLA, TM's normal, translucent. O ral cavity: mucosa moist and WNL, no erythema. N jose martin: supple, no lymphadenopathy, no carotid bruits. Heart: RRR. L ungs: CTAB A&P. A bdomen: bowel sounds present, soft and nontender, no guarding or rigidity, no organomegaly or masses. N eurologic Exam: alert and oriented. E xtremities: no leg edema. Assessment: * Assessment: 1. G astroenteritis - K52.9 (Primary) 2 . G ERD (gastroesophageal reflux disease) - K21.9 Plan: * Treatment: Value Reference Range w bc 11.5 3.5 - 10 * l ym 31.3 15 - 50 * m id 6.8 2 - 15 * g ran 61.9 35 - 80 * r bc 4.45 3.5 - 5.5 * h gb 13.8 11.5 - 16.5 * h ct 43.5 35 - 55 * m cv 97.7 75 - 100 * m ch 31.1 25 - 35 * m chc 31.8 31 - 38 * p lat 197 100 - 400 * Leonor Carey 12/19/2023 2:31 :05 PM > results reviewed w/ pt in office Notes: bland diet; increase water intake??2.?GERD (gastroesophageal reflux disease)? Start Omeprazole Capsule Delayed Release, 20 MG, 1 capsule 30 minutes before morning meal, Orally, Once a day, 30 day(s), 30, Refills 5.?? Notes: bland diet ; smoking cessation?? * Procedure Codes: 3 6416 CAPILLARY BLOOD DRAW, 47048 CBC WITH AUTO DIFF * Follow Up: 3 Weeks,and prn * Images: Billing Information: * Visit Code: 68625 Office Visit, Est Pt., Level 4. * Procedure Codes: 06654 CAPILLARY BLOOD DRAW. 45676 CBC WITH AUTO DIFF. * Electronic signature of Rand Tay APRN on 02/21/2025 at 09:38 AM EDT Sign off status: Pending * Provider: MISAEL Ramírez Date: 0 12/19/2023 Generated for Leydi de la cruz/Lourdes/Cheryl on: 1 09:38 AM EDT History and Physical Notes * HPI (History of Present Illness) Category Sub-Category Detail Notes Category Not es Cardiology Pt sts that she does not remember getting the results of her carotid duplex that she had done in May Gastroenterology Vomiting last vomite d once 12/18/2023 in AM; has not eaten today ; has been drinking Sprite Abdominal Pain Pt presents today wi th c/o nausea, vomiting, diarrhea and syncope. Pt sts that Tuesday morning she started getting sick. Pt sts that she will start having abdominal pains and get up to go to the rest room and she feels very dizzy like she is going to pass out. Pt sts that she vomited up brown substance that looked similar to coffee grounds and sts that when she had a BM that it was blood. Pt sts that she has had issues like this with her stomach before but sts that she had no blood in her stool and her vomit did not look like it did this time. Pt sts that she feels shaky and that her body is jittery Diarrhea had one large amount of diarrhea stool with the abdominal cramping followed later by small amount of blood Blood in Stool small amount after i nitial diarrhea Hemetemesis Nausea no nausea now Heartburn none at present Examination Category Sub-Category Detail Notes Category Not es General Examination HEENT: sclera and c onjunctiva clear, PERRLA, TM's normal, translucent Heart: RRR Lungs: CTAB A&P Abdomen: bowel sounds present , soft and nontender, no guarding or rigidity, no organomegaly or masses Extremities: no leg edema General Appearance: NAD, alert, pleasant ; thin Neurologic Exam: alert and oriented Neck: supple, no lymphaden opathy, no carotid bruits Oral cavity: mucosa moist and WNL , no erythema
--- OUTSIDE RECORDS SUMMARY | 2024-01-10 05:30 | XMS_ITS ---
Author Organization [facility] Address [address] [facility] [address] [facility] [address] [place] [id number] Care Team Providers Care Heater Helper Forge Name Role Phone Alton Sow Primary Care Provider [phone] Tamara Tay [phone] Allergies Allergen (clinical drug ingredient) Drug/Non Drug Allergy documented on EMR Reaction Allergy Type Onset Date Status amoxicillin Amoxicillin Unknown Drug Allergy Act luis aspirin Aspirin Unknown Drug Allergy Active REASON FOR VISIT 3 week f/u Encounters Encounter Location Date Provider Diagnosis [facility] [address] [facility] [address] [place] [id number] 01/10/2024 Tamara Tay Plan Of Treatment No Information Progress Notes * MARIANGEL FAGANEDOB:[birth year] (69 yo F)Acc No.[id number]:01/10/2024 Patient: MIGUEL JEWELL Provider: MISAEL Ramríez :1955 A ge:68 Y S ex:Female Date:01/10/2024 Address:[address] [id number] Pcp:Alton Sow Subjective: * Chief Complaints: * 1 . 3 week f/u. * HPI: G astroenterology: 68 year old female presents with c/o Abdominal Pain P t presents today for a 3 week follow up. Pt sts that her abdominal pain and sickness is. * ROS: D ERMATOLOGY: no R yadira. [...] no. Alcohol: no. Sexually active: no.. * Allergies: A spirin, Amoxicillin. Objective: * Vitals: Assessment: Plan: * Treatment: * Images: Billing Information: * Visit Code: * Procedure Codes: * Electronic signature of Rand Tay APRN on 02/21/2025 at 09:38 AM EDT Sign off status: Pending * Provider: MISAEL Ramírez Date: 0 01/10/2024 Generated for Leydi de la cruz/Lourdes/Cheryl on: 1 09:38 AM EDT History and Physical Notes * HPI (History of Present Illness) Category Sub-Category Detail Notes Category Not es Gastroenterology Abdominal Pain Pt presents tod ay for a 3 week follow up. Pt sts that her abdominal pain and sickness is
--- OUTSIDE RECORDS SUMMARY | 2024-01-17 09:15 | XMS_ITS ---
Author Organization [facility] Address [address] [place] [id number] Care Team Providers Care Advice Clerk Name Role Phone Alton Sow Primary Care Provider [phone] Tamara Tay Unavailable [phone] Allergies Allergen (clinical drug ingredient) Drug/Non Drug [...] review and pick correct strength-formulatio n from [employer] options. If intended option is not shown, [...] Orally Once a day Active Vital Signs Weight 132.4 lbs 01/17/2024 Blood pressure systolic 110 mm Hg 01/17/20 24 Blood pressure diastolic 70 mm Hg 024 Heart Rate 83 /min 01/17/2024 Height 64.50 in 01/17/2024 BMI 22.37 kg/m2 01/17/2024 Encounters Encounter Location Date Provider Diagnosis [facility] [address] [place] [phone] 01/17/2024 Tamara Tay Gastroenteritis K52. 9 and [...] Follow Up: prn, Reason: Progress Notes * MINERVA FAGANOB:[birth year] (69 yo F)Acc No.[id number]:01/17/2024 Progress Notes Patient: MELISSA JEWELL Provider: MISAEL Ramírez :1955 A ge:68 Y S ex:Female Date:01/17/2024 Address:[facility] hospital [facility] [address] [place], [id number] Pcp:Alton Sow Subjective: * Chief Complaints: * [...] * Images: Billing Information: * Visit Code: 90450 Office Visit, Est Pt., Level 3. * Procedure Codes: * Electronic signature of Rand Tay APRN on 02/21/2025 at 09:37 AM EDT Sign off status: Pending * Provider: MISAEL Ramírez Date: 0 01/17/2024 Generated for Leydi de la cruz/Lourdes/Cheryl on: 1 09:37 AM EDT History and Physical Notes * [...]
--- OUTSIDE RECORDS SUMMARY | 2025-02-07 08:20 | XMS_ITS | Encounter Summary ---
Author Organization [facility] Address [address] [place] [address] Care Team Providers Care Piano Bench Assembler Name Role Phone Kurtis Vitalmary Driver ADMINISTRATION PROFESSIONAL Unavailable + [phone] Juanita Tay MD Primary Care Provider [phone] Reason for Referral * Consultation (Routine) - Authorized Specialty Diagnoses / Procedures Referred By Contac t Referred To Contact Diagnoses Left ventricular non-compaction cardiomyopathy (CMS/HCC) Chronic systolic heart failure Ernst Avila MD [address] [place] [address] Phone: tel: fax: Referral ID Status Reason Start Date Expiration Date V isits Requested Visits Authorized [id number] Authorized 02/07/2025 08/09/2026 1 1 * Genetic Testing (Routine) - Closed Specialty Diagnoses / Procedures Referred By Contac t Referred To Contact Lab Diagnoses Left ventricular non-compaction cardiomyopathy (CMS/HCC) Procedures [facility] Unlock Cardiomyopathy adn arrhythmia; Yes; No; Yes; Yes (Order sent with specimen) - Miscellaneous Test Ernst Avila MD [address] [place] [address] Phone: tel: fax: Referral ID Status Reason Start Date Expiration Date Visits Re quested Visits Authorized [id number] Closed 02/07/2025 08/09/2026 1 1 Reason for Visit * Reason Comments Cardiomyopathy * Consultation (Routine) - Closed Specialty Diagnoses / Procedures Referred By Sheeba irwin Referred To Contact Cardiology Diagnoses Acute systolic heart failure Urmila Vital, MARIBELL [address] [facility] [address] [place] [address] [place] [address] Phone: tel: fax: Referral ID Status Reason Start Date Expiration Date V isits Requested Visits Authorized [id number] Closed Specialty Services Required 01/16/2025 07/18/2026 1 1 Encounter Details Date Type Department Care Team (Latest Contact Info) Description 02/07/2025 8:20 AM EDT Office Visit [facility] Jayess Margie [address] [facility], [address] [place] [address] Ernst Avila MD [address] [place] [address] Secondary hypertension (Primary Dx); Left ventricular non-compaction cardiomyopathy (CMS/HCC); Chronic systolic heart failure Social History Tobacco Use Types Packs/Day Years Used Date Smoking Tobacco: Every Day Cigarettes 1 45 Started: 02/08/1980 Smokeless Tobacco: Never Tobacco Cessation:Ready [...] all 02/07/2025 8:15 AM EDT Leslie Fuentes, Bronson Nolen Poor appetite or overeating Not at all 02/07/2025 8: 15 AM KEYONT Leslie Fuentes RN Feeling bad about yourself - or that you are a failure or have let yourself or your family down Not at all 02/07/2025 8:15 AM EDT Leslie Morgan RN Trouble concentrating on thi ngs, such as reading the newspaper or watching television Not at all 02/07/2025 8:15 AM KEYONT Leslie Fuentes, Brosnon Nolen Moving or speaking so slowly that other [...] -9 Score 0 02/07/2025 8:15 AM EDT Leslie Fuentes, R N * How difficult have [...] recheck labs in 2 weeks. -Your local house supervisor will schedule you with cardiac rehab. -Scheduling will call to schedule your CPET with your next office visit in October/November. * Progress Notes - Ernst Avila MD - 02/07/2025 8:20 AM EDT Images from the original note were not included. [facility] Outpatient Visit Date of [...] ejection fraction. She was initially seen at [facility] for pre-syncopal events. An echocardiogram showed an LVEF of 10% and exercise stress echo showed ischemic changes. Subsequently, she was admitted to [facility] in 11/2024, where a left heart catheterization [...] syncopal events. She works part-time at a [employer], standing for 4 to 6 hours per [...] SOCIAL HISTORY Occupations: Works part-time at a [employer]. Exercise: No regular exercise; works 4-6 hours a night on her feet at the [employer]. Alcohol: Does not drink alcohol regularly, possibly having one drink a year. Tobacco: Smokes about a pack a day and has been smoking since high school. Recreational Drugs: Does not use any recreational drugs. FAMILY HISTORY - Father: from a gunshot wound in his 60s. - Mother: from general health decline and lifelong depression; age at unknown. - Brother: Schizophrenia, in a alf. - Half-brother: of a heart attack; age [...] with next visit in - Agree with STAMPING OPERATOR-D implantation if her LVEF does not improve. [...] - CMR reviewed by our advanced cardiac clinical massage therapist and confirms the diagnosis of LVNC. Evidence [...] MitraClip: not indicated - Barostim: currently a STAMPING OPERATOR-D candidate, so not a Barostim candidate - [...] Ernst Avila MD Advanced Heart Failure/Transplant Cardiology [facility] [1] No past surgical history on file. [2] No current outpatient medications on file. No current facility-administered medications for this visit. documented in this encounter Plan of Treatment Upcoming Encounters Date Type Department Care Team (Late st Contact Info) Description 10/09/2025 8:00 AM EDT Appointment [facility] Pulmonary Function Testing [address] [place] [address] 2025 8:00 AM EDT Office Visit [facility] Jayess Margie [address] [facility], [address] [place] [id number] Ernst Avila MD [address] [place] [address] Pending Results Name Type Priority Associated Diagnoses Date /Time [facility] Unlock Cardiomyopathy adn arrhythmia; Yes; No; Yes; Yes (Order sent with specimen) - Miscellaneous Test Lab Routine Left ventricular non-compaction cardiomyopathy (CMS/HCC) 02/07/2025 9:15 AM EDT Scheduled Orders Name Type Priority Associated Diagnoses Orde r Schedule [facility] Unlock Cardiomyopathy adn arrhythmia; Yes; No; Yes; Yes (Order sent with specimen) - Miscellaneous Test Lab Routine Left ventricular non-compaction cardiomyopathy (CMS/HCC) Expected: 02/07/2025, Expires: 02/07/2026 Cardiopulmonary Exercise Test PFT Routine Left ventricular [...] 2 Antibody/Antigen Screen (02/07/2025 9:15 AM EDT) HIV 1 & 2 Antibody/Antigen Screen Non Reactive Non Reactive 02/07/2025 12:18 PM EDT [facility] Comment:Screening for HIV 1 & 2 antibodies, and P24 antigen is NONREACTIVE. No confirmatory testing is required. Blood Venous blood specimen / Unknown Venipuncture / Unknown 02/07/2025 9:15 AM EDT 02/07/2025 9:15 AM EDT us Ernst Avila MD LAB BLOOD ORDERABLES Final Res ult [facility] [address] [place] [address] * Lipid panel (02/07/2025 9:15 AM EDT) Cholesterol, Plasma 150 <200 mg/dL 02/07/2025 12:15 PM EDT [facility] Comment: Cholesterol Reference Range (age >17 years): Desirable <200 mg/dL Borderline 200 to 239 mg/dL Undesirable >239 mg/dL HDL 66 >=50 mg/dL 02/07/2025 12:15 PM EDT [facility] Comment: HDL Cholesterol Reference Ranges (age >17 years): Female, acceptable > or = 50 mg/dL Male, acceptable > or = 40 mg/dL Triglycerides, Plasma 110 <150 mg/dL 02/07/2025 12:15 PM EDT [facility] Comment: Triglyceride Reference Range (age >17 years): Desirable: <150 mg/dL Borderline high: 150 to 199 mg/dL High: 200 to 499 mg/dL Very high: >499 mg/dL Increased risk of pancreatitis: >1000 mg/dL Cholesterol/HDL Ratio 2 02/07/2025 12:15 PM EDT [facility] LDL, Calculated 64 <100 mg/dL 12:15 PM EDT [facility] Comment: LDL Cholesterol Reference Range (age [...] 12 hours? Unknown 02/07/2025 12:15 PM EDT [facility] Blood Venous blood specimen / Unknown Venipuncture / Unknown 02/07/2025 9:15 AM EDT 02/07/2025 9:15 AM EDT us Ernst Avila MD LAB BLOOD ORDERABLES Final Res ult Performing Organization Address City/[facility]/ZIP Co de Phone Number [facility] [address] [place] [address] * Hemoglobin A1c (02/07/2025 9:15 AM EDT) Hemoglobin A1c 5.6 <5.7 % 02/07/2025 2:19 PM EDT [facility] Blood Venous blood specimen / Unknown Venipuncture / Unknown 02/07/2025 9:15 AM EDT 02/07/2025 9:15 AM EDT Narrative [facility] - 02/07/2025 2:19 PM EDT HA1C Interpretive Data: Diagnosis of Diabetes: Diabetic > or = 6.5% Pre-diabetic 5.7 to 6.4% Non-diabetic < or = 5.6% Glycemic Targets for Type I and Type II Diabetics: Non- Adults <7.0% Adults <6.0% Children and Adolescents <7.5% Source: [place] [employer]. Standards of medical care in diabetes,2017. Diabetes Care.2017:40 (suppl 1):S1-S135. Ernst Avila MD LAB BLOOD ORDERABLES Final Res ult [facility] [address] [place] [address] * Creatine Kinase (CK), Total (02/07/2025 9:15 AM EDT) Creatine Kinase, Plasma 155 37 - 168 U/L 02/07/2025 12:15 PM EDT [facility] Blood Venous blood specimen / Unknown Venipuncture / Unknown 02/07/2025 9:15 AM EDT 02/07/2025 9:15 AM EDT Ernst Avila MD LAB BLOOD ORDERABLES Final Res ult [facility] [address] [place] [address] * TSH Reflex FT4 (02/07/2025 9:15 AM EDT) Thyroid Stimulating Hormone, Plasma 2.42 0.40 - 4.20 uIU/mL 02/07/2025 12:15 PM EDT [facility] Blood Venous blood specimen / Unknown Venipuncture / Unknown 02/07/2025 9:15 AM EDT 02/07/2025 9:15 AM EDT us Ernst Avila MD LAB BLOOD ORDERABLES Final Res ult [facility] [address] [place] [address] * (ABNORMAL) Comprehensive metabolic panel (02/07/2025 9:15 AM EDT) Glucose, Plasma 79 74 - 99 mg/dL 02/07/2025 12:15 PM EDT [facility] BUN, Plasma 11 8 - 23 mg/dL 02/07/2025 12:15 PM EDT [facility] Creatinine, Plasma 0.69 0.60 - 1.10 mg/dL 02/07/2025 12:15 PM EDT [facility] BUN/Creatinine Ratio 16 02/07/2025 12:15 PM EDT [facility] Sodium, Plasma 135(L) 136 - 145 mmol/L 02/07/2025 12:15 PM EDT [facility] Potassium, Plasma 4.5 3.6 - 4.9 mmol/L 02/07/2025 12:15 PM EDT [facility] Chloride, Plasma 104 97 - 107 mmol/L 02/07/2025 12:15 PM EDT [facility] CO2, Plasma 22 22 - 29 mmol/L 02/07/2025 12:15 PM EDT [facility] Anion Gap 9 6 - 16 mmol/L 02/07/2025 12:15 PM EDT [facility] Total Calcium, Plasma 9.3 8.9 - 10.2 mg/dL 02/07/2025 12:15 PM EDT [facility] Total Protein 7.1 6.3 - 7.9 g/dL 02/07/2025 12:15 PM EDT [facility] Albumin, Plasma 4.2 3.5 - 5.2 g/dL 02/07/2025 12:15 PM EDT [facility] AST, Plasma 30 10 - 35 U/L 02/07/2025 12:15 PM EDT [facility] ALT, Plasma 17 10 - 35 U/L 02/07/2025 12:15 PM EDT [facility] Alkaline Phosphatase, Plasma 90 46 - 142 U/L 02/07/2025 12:15 PM EDT [facility] Total Bilirubin, Plasma 0.3 0.2 - 1.1 mg/dL 02/07/2025 12:15 PM EDT [facility] eGFRcr 95.3 mL/min/1.7 3m*2 02/07/2025 12:15 PM EDT [facility] Comment:Reported eGFRcr in m L/min/1.73m2 is based the CKD-EPI 2020 equation that does not use a race coefficient. Blood Venous blood specimen / Unknown Venipuncture / Unknown 02/07/2025 9:15 AM EDT 02/07/2025 9:15 AM EDT us Ernst Avila MD LAB BLOOD ORDERABLES Final Res ult [facility] [address] [place] [address] * (ABNORMAL) CBC and differential (02/07/2025 9:15 AM EDT) WBC Count 8.22 3.70 - 10.30 10*3/uL LAB HEMATOLOGY METHOD 02/07/2025 11:37 AM EDT [facility] RBC Count 4.44 3.90 - 5.20 10*6/uL LAB HEMATOLOGY METHOD 02/07/2025 11:37 AM EDT [facility] HGB 13.6 11.2 - 15.7 g/dL LAB HEMATOLOGY METHOD 02/07/2025 11:37 AM EDT [facility] HCT 42.2 34.0 - 45.0 % LAB HEMATOLOGY METHOD 02/07/2025 11:37 AM EDT [facility] Platelet Count 299 155 - 369 10*3/uL LAB HEMATOLOGY METHOD 02/07/2025 11:37 AM EDT [facility] MCV 95 79 - 98 fL LAB HEMATOLOGY METHOD 02/07/2025 11:37 AM EDT [facility] MCH 30.6 26.0 - 32.0 pg LAB HEMATOLOGY METHOD 02/07/2025 11:37 AM EDT [facility] MCHC 32.2 30.7 - 35.5 g/dL LAB HEMATOLOGY METHOD 02/07/2025 11:37 AM EDT [facility] RDW 14.3 11.5 - 14.5 % LAB HEMATOLOGY METHOD 02/07/2025 11:37 AM EDT [facility] MPV 9.3 8.8 - 12.5 fL LAB HEMATOLOGY METHOD 02/07/2025 11:37 AM EDT [facility] nRBC 0.0 <=0.0 per 100 WBCs LAB HEMATOLOGY METHOD 02/07/2025 11:37 AM EDT [facility] Differential Type Automated LAB HEMATOLOGY METHOD 02/07/2025 11:37 AM EDT [facility] Neutrophils % 53 % LAB HEMATOLOGY METHOD 02/07/2025 11:37 AM EDT [facility] Lymphocytes % 37 % LAB HEMATOLOGY METHOD 02/07/2025 11:37 AM EDT [facility] Monocytes % 7 % LAB HEMATOLOGY METHOD 02/07/2025 11:37 AM EDT [facility] Eosinophils % 2 % LAB HEMATOLOGY METHOD 02/07/2025 11:37 AM EDT [facility] Basophils % 1 % LAB HEMATOLOGY METHOD 02/07/2025 11:37 AM EDT [facility] Immature Granulocytes % 0 % LAB HEMATOLOGY METHOD 02/07/2025 11:37 AM EDT [facility] Neutrophils Absolute 4.30 1.60 - 6.10 10*3/uL LAB HEMATOLOGY METHOD 02/07/2025 11:37 AM EDT [facility] Lymphocytes Absolute 3.04 1.20 - 3.90 10*3/uL LAB HEMATOLOGY METHOD 02/07/2025 11:37 AM EDT [facility] Monocytes Absolute 0.57 0.30 - 0.90 10*3/uL LAB HEMATOLOGY METHOD 02/07/2025 11:37 AM EDT [facility] Eosinophils Absolute 0.17 0.00 - 0.50 10*3/uL LAB HEMATOLOGY METHOD 02/07/2025 11:37 AM EDT [facility] Basophils Absolute 0.11(H) 0.00 - 0.10 10*3/uL LAB HEMATOLOGY METHOD 02/07/2025 11:37 AM EDT [facility] Immature Granulocytes Absolute 0.03 0.00 - 0.06 10*3/uL LAB HEMATOLOGY METHOD 02/07/2025 11:37 AM EDT [facility] Blood Venous blood specimen / Unknown Venipuncture / Unknown 02/07/2025 9:15 AM EDT 02/07/2025 9:15 AM EDT Narrative [facility] - 02/07/2025 11:37 AM EDT Therapeutic decision making should be based on absolute values, rather than percentages. Ernst Avila MD LAB BLOOD ORDERABLES Final Res ult Performing Organization Address City/[facility]/ZIP Co de Phone Number [facility] [address] [place] [address] * ECG Adult (Now - Performed in your clinic) (02/07/2025 8:19 AM EDT) EKG DIAGNOSIS CLASS Abnormal MUSE ECG Ventricular Rate 62 BPM MUSE ECG Atrial Rate 62 BPM MUSE ECG [place] Interval 186 ms MUSE ECG QRSD Interval 180 ms MUSE ECG QT Interval 476 ms MUSE ECG QTC Interval 483 ms MUSE ECG P [place] 72 degrees MUSE ECG R [place] -82 degrees MUSE ECG T Wave [place] 90 degrees MUSE ECG Diagnosis Poor data quality, interpretation may be adversely affected MUSE ECG Diagnosis MUSE ECG Diagnosis Sinus rhythm with occasional premature ventricular complexes MUSE ECG Diagnosis Left axis deviation MUSE ECG Diagnosis Left bundle branch block MUSE ECG Diagnosis Abnormal ECG MUSE ECG Diagnosis MUSE ECG Diagnosis Confirmed by Jaiden Gomez ([id number]) on 02/07/2025 3:52:48 PM MUSE ECG 02/07/2025 8:19 AM EDT 02/07/2025 3:52 PM EDT Ernst Avila MD ECG ORDERABLES Final Result MUSE ECG documented in this encounter Visit Diagnoses Diagnosis Secondary hypertension- Primary Other secondary hypertension, unspecified Left ventricular non-compaction cardiomyopathy (CMS/HCC) Chronic systolic heart failure documented in this encounter Additional Health Concerns Assessment Noted Time PHQ-9 Depression Total Score: 0 02/08/20 25 8:15 AM EDT A fall risk assessment has been complete d for the patient 02/07/2025 8:16 AM EDT A Body Mass Index follow-up plan has been documented for the patient 02/07/2025 9:34 AM EDT documented as of this encounter Care Teams Piano Bench Assembler Relationship Specialty Start Date End Date Juanita Tay MD [address] [place], [place] [id number] PCP - General 02/07/25 Urmila Vital APRN [address] [facility] [address] [place] [address] Referring Physician 01/29/25 documented as of this encounter
--- OUTSIDE RECORDS SUMMARY | 2025-02-21 09:37 | XMS_ITS | Patient Health Record ---
Author Organization [facility] Address [address] [place] [id number] Care Team Providers Care Subsorter Name Role Phone Alton Sow Primary Care Provider [phone] TaySusan vermaTamara Unavailable [phone] Allergies Allergen (clinical drug ingredient) Drug/Non Drug [...] Interpretation:Normal Performing Lab: Notes/Report: Test performed by [facility], [place] [address] [place] [address] , [address], [place] [address] Butch Soto MD, Nursing Clinical Director CLIA: [id number] Sodium 141 135-145 mmol/L Potassium 5.0 3.5-5.3 [...] 129 Performing Lab: Notes/Report: Test performed by [facility], [address] , [address], [place] [address] Butch Soto MD, Nursing Clinical Director CLIA: [id number] Cholesterol 180 <200 mg/dL Triglycerides 129 <150 [...] Interpretation:2.3 Performing Lab: Notes/Report: Test performed by [facility] [address] [place] [address] , [place] [address] Butch Soto MD, Nursing Clinical Director CLIA: [id number] Magnesium 2.3 1.6-2.4 mg/dL P-TSH Reviewed date:08/14/2024 10:02:14 AM Interpretation:1.87 Performing Lab: Notes/Report: Test performed by [facility] [address] [place] [address] , [place] [address] Butch Soto MD, Nursing Clinical Director CLIA: [id number] TSH 1.87 0.43-5.25 mU/L Ultrasound : Carotids [...] Duration) Notes Start Date End Date Status traZODone HCl 100 MG 2 tab(s) orally qhs Active Omeprazole 20 MG 1 capsule 30 minutes before morning meal Orally Once a day Active Sertraline HCl 100 MG 1 tab(s) orally once a day Active Vitamin D (Cholecalciferol) 2000 I.U. 1 TAB(S) ONCE A DAY *Please review and pick correct strength-formulatio n from Medispan options. If intended option is not shown, discontinue and re-order from Quick Search* 10/07/2010 Active Alendronate Sodium 70 MG 1 tab(s) Orally once a week; Duration: 28 day(s) 08/02/2018 Active Crestor 5 MG 1 tablet Orally Once a day; Duration: 30 days 08/20/2024 Active rOPINIRole HCl 4 MG 1 -2tab(s) Orally once a day at bedtime; Duration: 30 days 06/07/2012 Active Immunizations Vaccine Route Administration Date Status Comme nts COVID 19 Milly Unknown 01/29/2021 Administered PNEUMOVAX 23 VACCINE IM Intramuscular 07/12/2018 Administe red Tetanus Tdap-Adacel (over 7yrs) IM Intramuscular 07/12/2018 Administered Problems Problem Type SNOMED Code ICD Code Onset Dates Problem Status W/U Status Risk Notes Problem Gastroesophageal reflux disease (030078908) GERD (gastroesophageal reflux disease) (K21.9) Active confirmed Problem Hyperlipidemia (63522308) Hyperlipidemia (E78.5) Active confirmed Problem Sciatic nerve lesion (342977259) Piriformis syndrome of right side (G57.01) Active confirmed Problem Psoriasis (8608840) Psoriasis (L40.9) Active co nfirmed Problem Restless legs (31658438) Restless legs (G25.81) Active confirmed Problem Restless legs (32872642) Restless leg (G25.81) Active confirmed Problem Reactive depression (situational) (15093510) Situational depression (F43.21) Active confirmed Problem Hypothyroidism (80352332) Hypothyroidism (E03.9) Active confirmed Problem Osteoporosis (57686797) Osteoporosis (M81.0) Active confirmed Problem Dyslipidemia (859877847) Dyslipidemia (E78.5) Active confirmed Problem Paresthesia of arm (75018952) Paresthesia of arm (R20.2) Active confirmed Problem Depressive disorder (disorder) (39068384) Depression, unspecified depression type (F32.9) Active confirmed Problem History of nicotine dependence (338860104886284275 ) History of nicotine dependence (Z87.891) Active confirmed Problem Osteoporosis (13668300) Osteoporosis, unspecified (M81.0) Active confirmed Problem Acute systolic heart failure (059276230) Acute systolic heart failure (I50.21) Active confirmed Vital Signs Heart Rate 67 /min 08/20/2024 Blood pressure diastolic 80 mm Hg 08/20/2024 Height 64.50 in 08/20/2024 Blood pressure systolic 100 mm Hg 08/20/2024 Weight 134.4 lbs 08/20/2024 BMI 22.71 kg/m2 08/20/2024 Encounters Encounter Location Date Provider Diagnosis [facility] [address] [place], [place] [id number] 08/06/2024 Tamara Tay Restless legs G25.81 ; Near syncope R55 ; Lipid screening Z13.220 ; Situational depression F43.21 ; History of nicotine dependence Z87.891 ; Tobacco abuse Z72.0 and GERD (gastroesophageal reflux disease) K21.9 [facility] [address] [place], [place] [id number] 08/20/2024 Tamara Tay Osteoporosis M81.0 ; History of nicotine dependence Z87.891 ; Near syncope R55 ; Hyperlipidemia E78.5 ; Restless leg G25.81 ; BMI 22.0-22.9, adult Z68.22 ; Tobacco use Z72.0 and Osteoporosis, unspecified M81.0 [facility] [address] [place], [place] [id number] 03/05/2024 Alton [place] Osteoporosis M81.0 [facility] [address] [place], [place] [id number] 12/06/2024 Alton [place] [facility] [address] [place] [id number] 12/07/2024 Alton [place] [facility] [address] [facility] [address] [place], [place] [id number] 12/24/2024 Tamara Tay [facility] [address] [place], [place] [id number] 02/12/2025 Alton [place] Restless leg G25.81 [facility] [address] [place], [place] [id number] 02/18/2025 Alton [place] History of nicotine dependence Z87.891 Assessments Encounter Date Diagnosis (ICD Code) Assessment Notes Treatment Notes Treatment Clinical Notes Section Notes 03/05/2024 Osteoporosis (ICD-10 - M81.0) 08/06/2024 Near [...] of behaviors; suggested gum; she will consider 02/12/2025 Restless leg (ICD-10 - G25.81) 02/18/2025 History of nicotine dependence (ICD-10 - Z87.891) 08/06/2024 Lipid screening (ICD-10 - Z13.220) 08/20/2024 [...] Z72.0) 08/20/2024 Osteoporosis, unspecified (ICD-10 - M81.0) Plan Of Treatment No Information Insurance Providers Payer Name Payer Address Payer Phone Subscriber Number Group Number Insured Name Patient Relationship to Insured Coverage Start Date Coverage End Date [employer] [address] [address] [place], [place] [id number] [phone] [id number] MELISSA FAGAN Self - patient is the insured Medical (General) History Medical History History ICD Code anxiety/depression RLS psoriasis Surgical History Surgery Date(Month/Year) BTL Hospitalization History Reason Date(Month/Year) same as above
--- OUTSIDE RECORDS SUMMARY | 2025-02-21 09:38 | XMS_ITS | Encounter Summary ---
Author Organization [facility] Address [address] [place] [address] Care Team Providers Care Element Setter Name Role Phone Urmila Vital BRAKE OPERATOR HEAVY DUTY Unavailable [phone] Juainta Tay MD Primary Care Provider [phone] Encounter Details Date Type Department Care Team (Late Contact Info) Description 01/29/2025 Telephone [facility] [place] [address] [facility] [place] [address] Pcp, No [address] [place] [address] Social History Tobacco Use Types Packs/Day Years Used Date Smoking Tobacco: Never Assessed Comments Unknown Sex and Gender Information Value Date Recorded Sex Assigned at Not on file Legal Sex Female 7:46 AM EDT Gender Identity Not on file Sexual Orientation Not on file documented as of this encounter Plan of Treatment Upcoming Encounters Date Type Department Care Team (Late Contact Info) Description 10/09/2025 8:00 AM EDT Appointment [facility] Pulmonary Function Testing [address] [place] [address] 2025 8:00 AM EDT Office Visit [facility] [place] [address] [facility] [place] [address] Ernst Avila MD [address] [place] [address] documented as of this encounter Visit Diagnoses Not on filedocumented in this encounter Care Teams Element Setter Relationship Specialty Start Date End Date Juanita Tay MD [address] [place], [place] [id number] PCP - General 02/07/25 Urmila Vital APRN [address] [facility] [address] [facility] [address] [place] [address] Referring Physician 01/29/25 documented as of this encounter
--- OUTSIDE RECORDS SUMMARY | 2025-02-21 09:38 | XMS_ITS | Encounter Summary ---
Author Organization Healthcare Address [address] [place] [address] Care Team Providers Care Two Way Radio Technician Name Role Phone Kurtis Vitalmary Driver RAIL TECHNICIAN Unavailable + [phone] Juanita Tay MD Primary Care Provider [phone] Encounter Details Date Type Department Care Team (Late st Contact Info) Description 02/18/2025 Orders Only [facility] [place] Gerardo [address] [facility] [place] [phone] Kait Vicente, RN - Outpatient Center Chronic systolic heart failure (Primary Dx) Social History Tobacco Use Types Packs/Day Years Used Date Smoking Tobacco: Every Day Cigarettes 1 45 Started: 02/08/1980 Smokeless Tobacco: Never PHQ-2 Answer Date Recorded Patient Health Questionnaire-2 [...] Appointment [facility] Pulmonary Function Testing [address] [place] [phone] 2025 8:00 AM EDT Office Visit [facility] [place] Max [address], [address] [place] [address] Ernst Avila MD [address] [place] [address] Scheduled Orders Name Type Priority Associated Diagnoses Orde r Schedule Basic metabolic panel Lab Routine Chronic systolic heart failure Expected: 02/18/2025 (Approximate), Expires: 08/22/2026 documented as of this encounter Visit Diagnoses Diagnosis Chronic systolic heart failure- Primary documented in this encounter Additional Health Concerns Assessment Noted Time PHQ-9 Depression Total Score: 0 02/08/20 8:15 AM EDT A fall risk assessment has been complete d for the patient 02/07/2025 8:16 AM EDT A Body Mass Index follow-up plan has been documented for the patient 02/07/2025 9:34 AM EDT documented as of this encounter Care Teams Two Way Radio Technician Relationship Specialty Start Date End Date Juanita Tay MD [address] [place] [address] PCP - General 02/07/25 Urmila Vital, MARIBELL [address] [facility] [address] [place] [address] Referring Physician 01/29/25 documented as of this encounter
--- OUTSIDE RECORDS SUMMARY | 2025-02-21 09:38 | XMS_ITS | Encounter Summary ---
Author Organization [facility] Address [address] [place] [address] Care Team Providers Care Epic Cadence Analyst Name Role Phone Unavailable Primary Care Provider Unavailabl e Reason for Referral * Consultation (Routine) - Closed Specialty Diagnoses / Procedures Referred By Sheeba t Referred To Contact Cardiology Diagnoses Acute systolic heart failure Urmila Vital APRN [address] 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 [place] [address] Lucrecia Campos, RN [facility] - [facility] Acute systolic heart failure (CMS/HCC) (Primary Dx) Social History Tobacco Use Types [...] Appointment [facility] Pulmonary Function Testing [address] [place] [address] 2025 8:00 AM EDT Office Visit [facility] [place] [address] [facility], [address] [place] [phone] Ernst Avila MD [address] [place] [address] Scheduled Referrals Name Type Priority Associated Diagnoses Order Schedule Ambulatory referral to Cardiology Outpatient Referral Routine Acute systolic heart failure (CMS/HCC) Expected: 01/16/2025 (Approximate), Expires: 07/16/2026 documented as of this encounter Visit Diagnoses Diagnosis Acute systolic heart failure- Primary documented in this encounter
--- OUTSIDE RECORDS SUMMARY | 2025-02-21 09:38 | XMS_ITS | Encounter Summary ---
Author Organization [facility] Address [address] [place] [id number] Care Team Providers Care Fagoting Machine Operator Name Role Phone Kurtis Vitalmary Driver RECORDS MANAGEMENT SPECIALIST Unavailable + [phone] Juanita Tay MD Primary Care Provider [phone] Encounter Details Date Type Department Care Team (Late st Contact Info) Description 02/08/2025 Telephone [facility] [place] Gerardo [address] [place] [address] [place] [address] Social History Tobacco Use Types Packs/Day Years [...] on file documented as of this encounter Miscellaneous Notes * Telephone Encounter - Angela Martinez - 02/08/2025 1:40 PM EDT Patient Name:Melissa Murray : 1955 Date:02/08/2025 Affiliate Site: [facility] Referring Physician: Evi Clarke/ Seen: Cardiology/Dr. Avila Future scheduling/testing needs: pt does have follow up appt scheduled for October 2025 This [facility] Nurse Liaison contacted Melissa Murray following their appointment on 02/07/2025. Explained Liaison services offered through the [facility]. Inquired about appointment details and if patient had any questions or concerns. Asked patient if they were to have a follow up appointment or testing. Patient denied need for assistance for scheduling at this time. Informed patient thatliaisons are always available should a need/concern arise. Liaison contact information provided. Will follow up in 3 months to ensure continuum of care. Angela Martinez [facility] Nurse Liaison [phone] documented in this encounter Plan of Treatment Upcoming Encounters Date Type Department Care Team (Late st Contact Info) Description 10/09/2025 8:00 AM EDT Appointment [facility] Pulmonary Function Testing [address] [place] [address] 2025 8:00 AM EDT Office Visit [facility] [place] [address] [facility], [address] [place] [address] Ernst Avila MD [address] [place] [address] documented as of this encounter Visit Diagnoses Not on filedocumented in this encounter Additional Health Concerns Assessment Noted Time PHQ-9 Depression Total Score: 0 02/08/20 8:15 AM EDT A fall risk assessment has been complete d for the patient 02/07/2025 8:16 AM EDT A Body Mass Index follow-up plan has been documented for the patient 02/07/2025 9:34 AM EDT documented as of this encounter Care Teams Fagoting Machine Operator Relationship Specialty Start Date End Date Juanita Tay MD [address] [place] [address] PCP - General 02/07/25 Urmila Vital, MARIBELL [address] [place] [address] Referring Physician 01/29/25 documented as of this encounter
--- OUTSIDE RECORDS SUMMARY | 2025-02-21 09:38 | XMS_ITS | Encounter Summary ---
Author Organization Healthcare Address [address] [place] [address] Care Team Providers Care Needle Control Cheniller Name Role Phone Urmila Vital CREDIT VERIFIER Unavailable + [phone] Juanita Tay MD Primary Care Provider [phone] Encounter Details Date Type Department Care Team (Late Contact Info) Description 01/01/2025 Orders Only External Location [address] [place] [phone] Urmila Vital, CREDIT VERIFIER [address] [facility] [address] [place], [place] [id number] Social History Tobacco Use Types Packs/Day Years [...] Appointment [facility] Pulmonary Function Testing [address] [place] [address] 2025 8:00 AM EDT Office Visit [facility] [place] [address] [facility], [address] [place] [address] Ernst Avila MD [address] [place] [address] documented as of this encounter Procedures Procedure Name Priority Date/Time Associated Diagnosis Comments MR OUTSIDE IMAGES 01/01/2025 11:05 AM EDT documented in this encounter Results * MR transfer of outside films (01/01/2025 11:05 AM EDT) Anatomical Region Laterality Modality Magnetic Resonan ce 01/01/2025 11:0 5 AM EDT Urmila Vital APRN IMG MRI PROCEDURES Matthieu rosamaria Result - Final documented in this encounter Visit Diagnoses Not on filedocumented in this encounter Care Teams Needle Control Cheniller Relationship Specialty Start Date End Date Juanita Tay MD [address] [place] [address] PCP - General 02/07/25 Urmila Vital, MARIBELL [address] [facility] [address] [place] [address] Referring Physician 01/29/25 documented as of this encounter
--- OUTSIDE RECORDS SUMMARY | 2025-02-21 09:38 | XMS_ITS | Encounter Summary ---
Author Organization Healthcare Address [address] [place] [address] Care Team Providers Care Home Theater Expert Name Role Phone Urmila Vital [place] SCIENTIFIC ASSOCIATE Unavailable + [phone] Juanita aTy MD Primary Care Provider [phone] Encounter Details Date Type Department Care Team (Late st Contact Info) Description 02/18/2025 Orders Only [facility] [address], [address] [place] [address] Harrison Garsia, PharmD [place] [address] Social History Tobacco Use Types Packs/Day Years [...] as of this encounter Miscellaneous Notes * Progress Notes - Harrison Garsia, PharmD - 02/18/2025 2:27 PM EDT Resent prescription(s) to requested pharmacy due to: Patient requested to switch pharmacies. Confirmed script(s) is cancelled at original pharmacy. documented in this encounter Plan of Treatment Upcoming Encounters Date Type Department Care Team (Late st Contact Info) Description 10/09/2025 8:00 AM EDT Appointment [facility] Pulmonary Function Testing [address] [place] [address] 2025 8:00 AM EDT Office Visit [facility] [place] [address] [facility], [address] [place] [address] Ernst Avila MD [address] [place] [address] documented as of this encounter [...] documented as of this encounter Care Teams Home Theater Expert Relationship Specialty Start Date End Date Juanita Tay MD [address] [place] [id number] PCP - General 02/07/25 Urmila Vital APRN [address] [facility] [address] [place] [address] Referring Physician 01/29/25 documented as of this encounter
--- OUTSIDE RECORDS SUMMARY | 2025-02-21 09:38 | XMS_ITS | Encounter Summary ---
Author Organization [facility] Address [address] [place] [address] Care Team Providers Care Automatic Bow Maker Machine Tender Name Role Phone Urmila Vital AGRICULTURAL ENGINEERING TECHNICIANS Unavailable + [phone] Encounter Details Date Type Department Care Team (Late Contact Info) Description 02/01/2025 Telephone [facility] [place] Gerardo [address] [place] [address] [place] [address] Social History Tobacco Use Types Packs/Day Years Used Date Smoking Tobacco: Never Assessed Comments Unknown Sex and Gender Information Value Date Recorded Sex Assigned at Not on file Legal Sex Female 7:46 AM EDT Gender Identity Not on file Sexual Orientation Not on file documented as of this encounter Miscellaneous Notes * Telephone Encounter - Angela Martinez - 02/01/2025 2:48 PM EDT Patient Name: Melissa Murray :1955 Date:02/01/2025 Affiliate site: [facility] Referring Physician: Evi Vital Education/ Information provided: This Nurse Liaison left voicemail for Melissa Murray prior to an appointment on 02/07/2025. Provided patient with liaison contact information and encouraged patient to call with any questions, concerns or assistance needs. Will follow up with patient after appointment. Angela Motta [facility] Nurse Liaison [phone] documented in this encounter Plan of Treatment Upcoming Encounters Date Type Department Care Team (Late st Contact Info) Description 10/09/2025 8:00 AM EDT Appointment [facility] Pulmonary Function Testing [address] [place] [address] 2025 8:00 AM EDT Office Visit [facility] [place] [address] [facility], [address] [place] [address] Ernst Avila MD [address] [place] [address] documented as of this encounter Visit Diagnoses Not on filedocumented in this encounter Care Teams Automatic Bow Maker Machine Tender Relationship Specialty Start Date End Date Urmila Vital, MARIBELL [address] [facility] [address] [place], [place] [phone] Referring Physician 01/29/25 documented as of this encounter
--- OUTSIDE RECORDS SUMMARY | 2025-02-21 09:38 | XMS_ITS | Encounter Summary ---
Author Organization Healthcare Address [address] [place] [address] Care Team Providers Care Knocker Off Name Role Phone Urmila Vital HEALTH CAREERS INSTRUCTOR Unavailable + [phone] Juanita Tay MD Primary Care Provider [phone] Encounter Details Date Type Department Care Team (Late Contact Info) Description 01/01/2025 Orders Only External Location [address] [place] [phone] Urmila Vital, HEALTH CAREERS INSTRUCTOR [address] [facility] [address] [place], [place] [address] Social History Tobacco Use Types Packs/Day Years [...] Appointment [facility] Pulmonary Function Testing [address] [place] [address] 2025 8:00 AM EDT Office Visit [facility] [place] [address] [facility] [facility], [address] [place] [address] Ernst Avila MD [address] [place] [address] documented as of this encounter Procedures Procedure Name Priority Date/Time Associated Diagnosis Comments MR ABDOMEN OUTSIDE IMAGES 01/01/2025 11:05 AM EDT documented in this encounter Results * MR ABDOMEN OUTSIDE IMAGES (01/01/2025 11:05 AM EDT) Anatomical Region Laterality Modality Magnetic Resonan ce 01/01/2025 11:0 5 AM EDT Urmila Vital APRN IMG MRI PROCEDURES Matthieu rosamaria Result - Final documented in this encounter Visit Diagnoses Not on filedocumented in this encounter Care Teams Knocker Off Relationship Specialty Start Date End Date Juanita Tay MD [address] [place] [address] PCP - General 02/07/25 Urmila Vital, MARIBELL [address] [facility] [address] [place] [address] Referring Physician 01/29/25 documented as of this encounter
--- OUTSIDE RECORDS SUMMARY | 2025-02-21 09:38 | XMS_ITS | Clinical Summary ---
Author Organization [facility] Address [address] [place] [address] Care Team Providers Care Speech Professor Name Role Phone Kurtis Vitalmary Driver FRONT DESK AGENT Unavailable + [phone] Juanita Tay MD Primary Care Provider [phone] Allergies Active Allergy Reactions Criticality Noted Date Comments Amoxicillin Other - please docum ent in the comment field Low 02/07/2025 Medications rOPINIRole XL (Requip XL) 4 MG 24 hr tablet Take 1 tablet by mouth nightly. Active losartan (Cozaar) 25 MG tablet Take 2 tablets by mouth daily. Active spironolactone (Aldactone) 25 MG tablet Take 1 tablet by mouth daily. Active empagliflozin (Jardiance) 10 MG Take 1 tablet by mouth daily. Active aspirin 81 MG EC tablet Take 1 tablet by mouth daily. Active rosuvastatin (Crestor) 5 MG tablet Take 1 tablet by mouth nightly. Active venlafaxine 150 MG 24 hr tablet Take 1 tablet by mouth daily with breakfast. Do not crush, chew, or split. Active venlafaxine 75 MG 24 hr tablet Take 1 tablet by mouth daily with breakfast. Do not crush, chew, or split. Active ARIPiprazole (Abilify) 5 MG tablet Take 1 tablet by mouth daily. Active traZODone (Desyrel) 100 MG tablet Take 1 tablet by mouth nightly. Active metoprolol succinate XL (Toprol-XL) 25 MG 24 hr tablet Take 1 tablet by mouth daily. Do not crush or chew. Active alendronate (Fosamax) 70 MG tablet Take 1 tablet by mouth every 7 days. Take in the morning with a full glass of water, on an empty stomach, and do not take anything else by mouth or lie down for the next 30 min. Active nicotine polacrilex (Nicorette) 4 MG gum Chew 1 each as needed for smoking cessation. 100 each 5 Active sacubitril-vals abiola (Entresto) 24-26 MG tablet Take 1 tablet by mouth 2 times a day. 60 tablet 5 5 Active sacubitril-vals abiola (Entresto) 24-26 MG tablet Take 1 tablet by mouth 2 times a day. 60 tablet 5 5 02/19/20 25 Discontinu ed(Reorder ) Encounters Date Type Department Care Team Description 02/18/2025 Orders Only [facility] [address] [place] [id number] Harrison Garsia, PharmD 02/18/2025 Orders Only [facility] [address] [place] [address] Kait Vicente, supervisor dock systolic heart failure (Primary Dx) 02/08/2025 Telephone [facility] [address] [place] [address] Angela Martinez 02/07/2025 8:20 AM EDT Office Visit [facility] [address], [address] [place] [address] Ernst Avila MD Secondary hypertension (Primary Dx); Left ventricular non-compaction cardiomyopathy (CMS/HCC); Chronic systolic heart failure 02/07/2025 Travel 02/01/2025 Telephone [facility] [address] [place] [address] Angela Martinez 01/29/2025 Telephone [facility] [address] [place] [address] Pcp, No 01/16/2025 Orders Only [facility] [address] [address] Lucrecia Campos RN Acute systolic heart failure (CMS/HCC) (Primary Dx) 01/01/2025 Orders Only External Location [address] [place] [address] Urmila Vital APRN 01/01/2025 Orders Only External Location [address] [place] [address] Urmila Vital, MARIBELL from Last 3 Months Social History Tobacco Use Types Packs/Day Years [...] on file Sexual Orientation Not on file Last Filed Vital Signs Vital Sign Reading Time Taken Comments Blood Pressure 111/74 02/07/2025 8:08 AM EDT Pulse 64 02/07/2025 8:08 AM EDT Temperature - - Respiratory Rate - - Oxygen Saturation 98% 02/07/2025 8:08 AM EDT Inhaled Oxygen Concentration - - Weight 68.4 kg (150 lb 12.7 oz) 02/07/2025 8:07 AM EDT Height - - Body Mass Index - - Plan of Treatment Upcoming Encounters Date Type Department Care Team (Late st Contact Info) Description 10/09/2025 8:00 AM EDT Appointment [facility] Pulmonary Function Testing [address] [place] [address] 2025 8:00 AM EDT Office Visit [facility] [address], [address] [place] [address] Ernst Avila MD [address] [place] [address] Health Maintenance Due Date Last Done Comments [facility]-Bone Density Scan 1957 [facility]-Hepatitis C Screening 1957 [facility]-Medicare Annual Wellness (AWV) 1955 [facility]-Infant/Child/Adol SDOH Screenings 1955 [facility]- SDOH Screenings 10/25/1975 [facility]-Adult SDOH Screenings 10/25/1975 CT Colonography 2002 Colonoscopy 2002 FIT-DNA 2002 FIT 2002 FOBT 2002 Sigmoidoscopy 2002 [facility]-Colorectal Cancer Screening 2002 [facility]-Breast Cancer Screening 10/25/2007 [facility]-Lung Cancer Screening 10/25/2007 [facility]-Zoster Vaccines (1 of 2) 10/25/2007 [facility]-RSV Vaccine: 60+ Years o r (1 - Risk 60-74 years 1-dose series) 2017 [facility]-Pneumococcal Vaccine: 50 + Years (2 of 2 - PCV) 07/13/2019 07/12/2018 [id number] Vaccine (2 - season) 2025 01/29/2021 [facility]-Influenza Vaccine (#1) 2025 [facility]-Depression Screening 02/07/2026 025, 02/07/2025 [facility]-DTaP,Tdap,and Td Vaccine s (2 - Td or Tdap) 07/12/2028 07/12/2018 HPV Vaccines Aged Out No longer eligi ble based on patient's age to complete this topic [facility]-HIB Vaccines Aged Out No longer e ligible based on patient's age to complete this topic [facility]-Hepatitis A Vaccines Aged Out No longer eligible based on patient's age to complete this topic [facility]-IPV Vaccines Aged Out No longer e ligible based on patient's age to complete this topic [facility]-Rotavirus Vaccines Aged Out No lo nger eligible based on patient's age to complete this topic Procedures Procedure Name Priority Date/Time Associated Diagnosis Comments CBC WITH AUTO DIFFERENTIAL Routine 02/07/2025 9:15 [...] AM EDT Left ventricular non-compaction cardiomyopathy (CMS/HCC) TSH REFLEX FT4 Routine 02/07/2025 9:15 AM EDT Left ventricular non-compaction cardiomyopathy (CMS/HCC) ECG ADULT Routine 02/07/2025 8:19 AM EDT Secondary hypertension MR OUTSIDE IMAGES 01/01/2025 11: 05 AM EDT MR ABDOMEN OUTSIDE IMAGES 01/01/2025 11:05 AM EDT from Last 3 Months Results * TSH Reflex FT4 (02/07/2025 9:15 AM EDT) Thyroid Stimulating Hormone, Plasma 2.42 0.40 - 4.20 uIU/mL 02/07/2025 12:15 PM EDT [facility] Blood Venous blood specimen / Unknown Venipuncture / Unknown 02/07/2025 9:15 AM EDT 02/07/2025 9:15 AM EDT us Ernst Avila MD LAB BLOOD ORDERABLES Final Res ult Performing Organization Address [facility] de Phone Number [facility] [address] [place] [address] * Creatine Kinase (CK), Total (02/07/2025 9:15 AM EDT) Pathologist [facility] Creatine Kinase, Plasma 155 37 - 168 U/L 02/07/2025 12:15 PM EDT [facility] Blood Venous blood specimen / Unknown Venipuncture / Unknown 02/07/2025 9:15 AM EDT 02/07/2025 9:15 AM EDT us Ernst Avila MD LAB BLOOD ORDERABLES Final Res ult Performing Organization Address [facility] de Phone Number [facility] [address] [place] [address] * HIV 1 & 2 Antibody/Antigen Screen (02/07/2025 9:15 AM EDT) [facility] HIV 1 & 2 Antibody/Antigen Screen Non Reactive Non Reactive 02/07/2025 12:18 PM EDT [facility] Comment:Screening for HIV 1 & 2 antibodies, and P24 antigen is NONREACTIVE. No confirmatory testing is required. Blood Venous blood specimen / Unknown Venipuncture / Unknown 02/07/2025 9:15 AM EDT 02/07/2025 9:15 AM EDT us Ernst Avila MD LAB BLOOD ORDERABLES Final Res ult Performing Organization Address [facility] Co de Phone Number [facility] [address] [place] [address] * (ABNORMAL) CBC and differential (02/07/2025 9:15 AM EDT) [facility] WBC Count 8.22 3.70 - 10.30 10*3/uL LAB HEMATOLOGY METHOD 02/07/2025 11:37 AM EDT [facility] RBC Count 4.44 3.90 - 5.20 10*6/uL LAB HEMATOLOGY METHOD 02/07/2025 11:37 AM EDT [facility] HGB 13.6 11.2 - 15.7 g/dL LAB HEMATOLOGY METHOD 02/07/2025 11:37 AM EDT [facility] HCT 42.2 34.0 - 45.0 % LAB HEMATOLOGY METHOD 02/07/2025 11:37 AM EDT [facility] Platelet Count 299 155 - 369 10*3/uL LAB HEMATOLOGY METHOD 02/07/2025 11:37 AM EDT [facility] MCV 95 79 - 98 fL LAB HEMATOLOGY METHOD 02/07/2025 11:37 AM EDT [facility] MCH 30.6 26.0 - 32.0 pg LAB HEMATOLOGY METHOD 02/07/2025 11:37 AM EDT [facility] MCHC 32.2 30.7 - 35.5 g/dL LAB HEMATOLOGY METHOD 02/07/2025 11:37 AM EDT [facility] RDW 14.3 11.5 - 14.5 % LAB HEMATOLOGY METHOD 02/07/2025 11:37 AM EDT [facility] MPV 9.3 8.8 - 12.5 fL LAB HEMATOLOGY METHOD 02/07/2025 11:37 AM EDT [facility] nRBC 0.0 <=0.0 per 100 WBCs LAB HEMATOLOGY METHOD 02/07/2025 11:37 AM EDT [facility] Differential Type Automated LAB HEMATOLOGY METHOD 02/07/2025 11:37 AM EDT [facility] Neutrophils % 53 % LAB HEMATOLOGY METHOD 02/07/2025 11:37 AM EDT [facility] Lymphocytes % 37 % LAB HEMATOLOGY METHOD 02/07/2025 11:37 AM EDT [facility] Monocytes % 7 % LAB HEMATOLOGY METHOD 02/07/2025 11:37 AM EDT [facility] Eosinophils % 2 % LAB HEMATOLOGY METHOD 02/07/2025 11:37 AM EDT [facility] Basophils % 1 % LAB HEMATOLOGY METHOD 02/07/2025 11:37 AM EDT [facility] Immature Granulocytes % 0 % LAB HEMATOLOGY METHOD 02/07/2025 11:37 AM EDT [facility] Neutrophils Absolute 4.30 1.60 - 6.10 10*3/uL LAB HEMATOLOGY METHOD 02/07/2025 11:37 AM EDT [facility] Lymphocytes Absolute 3.04 1.20 - 3.90 10*3/uL LAB HEMATOLOGY METHOD 02/07/2025 11:37 AM EDT [facility] Monocytes Absolute 0.57 0.30 - 0.90 10*3/uL LAB HEMATOLOGY METHOD 02/07/2025 11:37 AM EDT [facility] Eosinophils Absolute 0.17 0.00 - 0.50 10*3/uL LAB HEMATOLOGY METHOD 02/07/2025 11:37 AM EDT [facility] Basophils Absolute 0.11(H) 0.00 - 0.10 10*3/uL LAB HEMATOLOGY METHOD 02/07/2025 11:37 AM EDT [facility] Immature Granulocytes Absolute 0.03 0.00 - 0.06 10*3/uL LAB HEMATOLOGY METHOD 02/07/2025 11:37 AM EDT [facility] Blood Venous blood specimen / Unknown Venipuncture / Unknown 02/07/2025 9:15 AM EDT 02/07/2025 9:15 AM EDT Narrative [facility] - 02/07/2025 11:37 AM EDT Therapeutic decision making should be based on absolute values, rather than percentages. Ernst Avila MD LAB BLOOD ORDERABLES Final Res ult [facility] [address] [place] [address] * Hemoglobin A1c (02/07/2025 9:15 AM EDT) Hemoglobin A1c 5.6 <5.7 % 02/07/2025 2:19 PM EDT [facility] Blood Venous blood specimen / Unknown Venipuncture / Unknown 02/07/2025 9:15 AM EDT 02/07/2025 9:15 AM EDT Narrative [facility] - 02/07/2025 2:19 PM EDT HA1C Interpretive Data: Diagnosis of Diabetes: Diabetic > or = 6.5% Pre-diabetic 5.7 to 6.4% Non-diabetic < or = 5.6% Glycemic Targets for Type I and Type II Diabetics: Non- Adults <7.0% Adults <6.0% Children and Adolescents <7.5% Source: [place] [employer]. Standards of medical care in diabetes,2017. Diabetes Care.2017:40 (suppl 1):S1-S135. Ernst Avila MD LAB BLOOD ORDERABLES Final Res ult [facility] [address] [place] [address] * Lipid panel (02/07/2025 9:15 AM EDT) Cholesterol, Plasma 150 <200 mg/dL 02/07/2025 12:15 PM EDT [facility] Comment: Cholesterol Reference Range (age [...] Cholesterol/HDL Ratio 2 02/07/2025 12:15 PM EDT [facility] LDL, Calculated 64 <100 mg/dL 12:15 PM EDT [facility] Comment: LDL Cholesterol Reference Range [...] 12 hours? Unknown 02/07/2025 12:15 PM EDT [facility] Blood Venous blood specimen / Unknown Venipuncture / Unknown 02/07/2025 9:15 AM EDT 02/07/2025 9:15 AM EDT us Ernst Avila MD LAB BLOOD ORDERABLES Final Res ult [facility] [address] [place] [address] * (ABNORMAL) Comprehensive metabolic panel (02/07/2025 9:15 AM EDT) Glucose, Plasma 79 74 - 99 mg/dL 02/07/2025 12:15 PM EDT [facility] BUN, Plasma 11 8 - 23 mg/dL 02/07/2025 12:15 PM EDT [facility] Creatinine, Plasma 0.69 0.60 - 1.10 mg/dL 02/07/2025 12:15 PM EDT [facility] BUN/Creatinine Ratio 16 02/07/2025 12:15 PM EDT [facility] Sodium, Plasma 135(L) 136 - 145 mmol/L 02/07/2025 12:15 PM EDT [facility] Potassium, Plasma 4.5 3.6 - 4.9 mmol/L 02/07/2025 12:15 PM EDT [facility] Chloride, Plasma 104 97 - 107 mmol/L 02/07/2025 12:15 PM EDT [facility] CO2, Plasma 22 22 - 29 mmol/L 02/07/2025 12:15 PM EDT [facility] Anion Gap 9 6 - 16 mmol/L 02/07/2025 12:15 PM EDT [facility] Total Calcium, Plasma 9.3 8.9 - 10.2 mg/dL 02/07/2025 12:15 PM EDT [facility] Total Protein 7.1 6.3 - 7.9 g/dL 02/07/2025 12:15 PM EDT [facility] Albumin, Plasma 4.2 3.5 - 5.2 g/dL 02/07/2025 12:15 PM EDT [facility] AST, Plasma 30 10 - 35 U/L 02/07/2025 12:15 PM EDT [facility] ALT, Plasma 17 10 - 35 U/L 02/07/2025 12:15 PM EDT [facility] Alkaline Phosphatase, Plasma 90 46 - 142 U/L 02/07/2025 12:15 PM EDT [facility] Total Bilirubin, Plasma 0.3 0.2 - 1.1 mg/dL 02/07/2025 12:15 PM EDT [facility] eGFRcr 95.3 mL/min/1.7 3m*2 02/07/2025 12:15 PM EDT [facility] Comment:Reported eGFRcr in m L/min/1.73m2 is based the CKD-EPI 2020 equation that does not use a race coefficient. Blood Venous blood specimen / Unknown Venipuncture / Unknown 02/07/2025 9:15 AM EDT 02/07/2025 9:15 AM EDT Ernst Avila MD LAB BLOOD ORDERABLES Final Res ult [facility] [address] [place] [address] * ECG Adult (Now - Performed in your clinic) (02/07/2025 8:19 AM EDT) EKG DIAGNOSIS CLASS Abnormal MUSE ECG Ventricular Rate 62 BPM MUSE ECG Atrial Rate 62 BPM MUSE ECG [place] Interval 186 ms MUSE ECG QRSD Interval 180 ms MUSE ECG QT Interval 476 ms MUSE ECG QTC Interval 483 ms MUSE ECG P [place] 72 degrees MUSE ECG R [place] -82 degrees MUSE ECG T Wave [place] 90 degrees MUSE ECG Diagnosis Poor data [...] Ernst Avila MD ECG ORDERABLES Final Result Performing Organization Address City/[facility]/ZIP Co de Phone Number MUSE ECG * MR transfer of outside films (01/01/2025 11:05 AM EDT) Anatomical Region Laterality Modality Magnetic Resonan ce 01/01/2025 11:0 5 AM EDT Urmila Vital FRONT DESK AGENT IMG MRI PROCEDURES Matthieu rosamaria Result - Final * MR ABDOMEN OUTSIDE IMAGES (01/01/2025 11:05 AM EDT) Anatomical Region Laterality Modality Magnetic Resonan ce 01/01/2025 11:0 5 AM EDT Urmila Vital FRONT DESK AGENT IMG MRI PROCEDURES Matthieu rosamaria Result - Final from Last 3 Months Insurance [facility] MEDIC[facility] Care Teams Speech Professor Relationship Specialty Start Date End Date Juanita Tay MD [address] [place] [address] PCP - General 02/07/25 Urmila Vital APRN [address] [place] [address] Referring Physician 01/29/25
--- OUTSIDE RECORDS SUMMARY | 2025-02-21 09:38 | XMS_ITS | Encounter Summary ---
Author Organization [facility] Address [facility] [place] [address] Care Team Providers Care Marine Oiler Name Role Phone Urmila Vital [place] OIL REFINERY OPERATOR Unavailable [phone] Juanita Tay MD Primary Care Provider [phone] Encounter Details Date Type Department Care Team (Latest Contact Info) Description 02/07/2025 Travel Social History Tobacco Use Types Packs/Day Years [...] Average Number of Drinks Not on file Frequency of Binge Drinking Not on file 06/2024 Comments No Sex and Gender Information Value Date Recorded Sex Assigned at Not on file Legal Sex Female 7:46 AM EDT Gender Identity Not on file Sexual Orientation Not on file documented as of this encounter Functional Status * Over the [...] much Not at all 02/07/2025 8:15 AM EDT Leslie Fuentes RN Feeling tired or having sharan le energy Not at all 02/07/2025 8:15 AM EDT Leslie Fuentes R N Poor appetite or overeating Not at all 02/07/2025 8: 15 AM EDT Leslie Fuentes RN Feeling bad about yourself - or that you are a failure or have let yourself or your family down Not at all 02/07/2025 8:15 AM EDT Leslie Morgan RN Trouble concentrating on thi ngs, such as reading the newspaper or watching television Not at all 02/07/2025 8:15 AM EDT Leslie Fuentes R N Moving or speaking so slowly that other people could have noticed? Or the opposite - being so fidgety or restless that you have been moving around a lot more than usual. Not at all 02/07/2025 8:15 AM EDT Leslie Fuentes R N Thoughts that you would be better off or hurting yourself in some way Not at all 02/07/2025 8:15 AM [place] Leslie Fuentes RN Patient Health Questionnaire -9 Score 0 02/07/2025 8:15 AM EDT Leslie Fuentes R N * How difficult have these problems made it for you to do your work, take care of things at home, or get along with other people? Answer Date of Assessment Author Not difficult at all 02/07/2025 8:15 AM EDT Leslie Morgan RN documented as of this encounter Plan of Treatment Upcoming Encounters Date Type Department Care Team (Late st Contact Info) Description 10/09/2025 8:00 AM EDT Appointment [facility] Pulmonary Function Testing [address] [place] [address] 2025 8:00 AM EDT Office Visit [facility] [place] [address], [address] [place] [address] Ernst Avila MD [address] [place] [address] documented as of this encounter Visit Diagnoses [...] documented as of this encounter Care Teams Marine Oiler Relationship Specialty Start Date End Date Juanita Tay MD [address] [place] [address] PCP - General 02/07/25 Urmila Vital APRN [address] [facility] [address] [place] [address] Referring Physician 01/29/25 documented as of this encounter
[2025-02-21 10:32] LABS: Anion Gap 15.4 mEq/L (5-15); Blood Urea Nitrogen 19 mg/dl (7-17); Calcium 9.7 mg/dl (8.4-10.2); Carbon Dioxide 23 mmol/L (22.0-30.0); Chloride 104 mmol/L (98-107); Creatinine,Serum 0.70 mg/dl (0.52-1.04); Estimated Glomerular Filt Rate 83 ml/min (>60); GFR (African American) 101 ML/MIN (>60); Glucose 86 mg/dl (74-100); Potassium 4.4 mmoL/L (3.5-5.1); Sodium 138 mmol/L (136-145)
== END 2025-02-21 23:59 | disposition home or self-care (01) ==
LOC: LAB 09:26
PROVIDERS: PCP Nurse Practitioner Family; Visit Provider Nurse Practitioner
DX: I42.8 Other cardiomyopathies (principal); I50.20 Unspecified systolic (congestive) heart failure
CPT/HCPCS: 36415; 80048

== ENCOUNTER 2025-02-28 09:11 | Outpatient (CLI) | payer MEDICARE, SELFPAY ==
--- OUTSIDE RECORDS SUMMARY | 2025-02-07 08:20 | XMS_ITS | Encounter Summary ---
Author Organization [facility] Address [address] [place] [address] Care Team Providers Care Milling General Superintendent Name Role Phone Kurtis Vitalmary Driver CHURCH HISTORY PROFESSOR Unavailable + [phone] Juanita Tay MD Primary Care Provider [phone] Reason for Referral * Consultation (Routine) - Authorized Specialty Diagnoses / Procedures Referred By Contac t Referred To Contact Diagnoses Left ventricular non-compaction cardiomyopathy (CMS/HCC) Chronic systolic heart failure Ernst Avila MD [address] [place] [address] Phone: tel: fax: Referral ID Status Reason Start Date Expiration Date V isits Requested Visits Authorized [id number] Authorized 02/07/2025 08/09/2026 1 1 * Genetic Testing (Routine) - Closed Specialty Diagnoses / Procedures Referred By Contac t Referred To Contact Lab Diagnoses Left ventricular non-compaction cardiomyopathy (CMS/HCC) Procedures [facility] Unlock Cardiomyopathy adn arrhythmia; Yes; No; Yes; Yes (Order sent with specimen) - Miscellaneous Test Ernst Avila MD [address] [place] [address] Phone: tel: fax: Referral ID Status Reason Start Date Expiration Date Visits Re quested Visits Authorized [id number] Closed 02/07/2025 08/09/2026 1 1 Reason for Visit * Reason Comments Cardiomyopathy * Consultation (Routine) - Closed Specialty Diagnoses / Procedures Referred By Sheeba irwin Referred To Contact Cardiology Diagnoses Acute systolic heart failure Urmila Vital, MARIBELL [address] [facility] [address] [place] [address] [place] [address] Phone: tel: fax: Referral ID Status Reason Start Date Expiration Date V isits Requested Visits Authorized [id number] Closed Specialty Services Required 01/16/2025 07/18/2026 1 1 Encounter Details Date Type Department Care Team (Latest Contact Info) Description 02/07/2025 8:20 AM EDT Office Visit [facility] [place] [address] [facility], [address] [place] [address] Ernst Avila MD [address] [place] [address] Secondary hypertension (Primary Dx); Left ventricular non-compaction cardiomyopathy (CMS/HCC); Chronic systolic heart failure Social History Tobacco Use Types Packs/Day Years Used Date Smoking Tobacco: Every Day Cigarettes 1 45.1 Started: 02/08/1980 Smokeless Tobacco: Never Tobacco Cessation:Ready [...] 8:15 AM EDT Leslie Fuentes R N Poor appetite or overeating Not at all 02/07/2025 8: 15 AM [place] Leslie Fuentes RN Feeling bad about yourself - or that you are a failure or have let yourself or your family down Not at all 02/07/2025 8:15 AM EDT Leslie Fuentes R N Trouble concentrating on things, such as reading the newspaper or watching television Not at all 02/07/2025 8:15 AM Leslie Kang RN Moving or speaking so slowly that other people could have noticed? Or the opposite - being so fidgety or restless that you have been moving around a lot more than usual. Not at all 02/07/2025 8:15 AM Leslie Kang RN Thoughts that you would be better off or hurting yourself in some way Not at all 02/07/2025 8:15 AM Leslie Kang RN Patient Health Questionnaire -9 Score 0 02/07/2025 8:15 AM EDT Leslie Fuentes R N * How difficult have these [...] recheck labs in 2 weeks. -Your local surgical scrub technologist will schedule you with cardiac rehab. -Scheduling will call to schedule your CPET with your next office visit in October/November. * Progress Notes - Ernst Avila MD - 02/07/2025 8:20 AM EDT Images from the original note were not included. [facility] Outpatient Visit Date of [...] ejection fraction. She was initially seen at [facility] for pre-syncopal events. An echocardiogram showed an LVEF of 10% and exercise stress echo showed ischemic changes. Subsequently, she was admitted to [facility] in 11/2024, where a left heart [...] syncopal events. She works part-time at a [employer], standing for 4 to 6 hours per [...] SOCIAL HISTORY Occupations: Works part-time at a [employer]. Exercise: No regular exercise; works 4-6 hours a night on her feet at the [employer]. Alcohol: Does not drink alcohol regularly, possibly having one drink a year. Tobacco: Smokes about a pack a day and has been smoking since high school. Recreational Drugs: Does not use any recreational drugs. FAMILY HISTORY - Father: from a gunshot wound in his 60s. - Mother: from general health decline and lifelong depression; age at unknown. - Brother: Schizophrenia, in a half-way. - Half-brother: of a heart attack; age [...] with next visit in - Agree with ELECTRONICS ENGINEER-D implantation if her LVEF does not improve. [...] - CMR reviewed by our advanced cardiac maintenance supervisor electrical and confirms the diagnosis of LVNC. Evidence [...] MitraClip: not indicated - Barostim: currently a ELECTRONICS ENGINEER-D candidate, so not a Barostim candidate - [...] Ernst Avila MD Advanced Heart Failure/Transplant Cardiology [facility] [1] No past surgical history on file. [2] No current outpatient medications on file. No current facility-administered medications for this visit. documented in this encounter Plan of Treatment Upcoming Encounters Date Type Department Care Team (Late st Contact Info) Description 10/09/2025 8:00 AM EDT Appointment [facility] Pulmonary Function Testing [address] [place] [address] 2025 8:00 AM EDT Office Visit [facility] [place] [address] [facility], [address] [place] [address] Ernst Avila MD [address] [place] [address] Scheduled Orders Name Type Priority Associated Diagnoses [...] Antibody/Antigen Screen (02/07/2025 9:15 AM EDT) Pathologist [facility] HIV 1 & 2 Antibody/Antigen Screen Non Reactive Non Reactive 02/07/2025 12:18 PM EDT [facility] Comment:Screening for HIV 1 & 2 antibodies, and P24 antigen is NONREACTIVE. No confirmatory testing is required. Blood Venous blood specimen / Unknown Venipuncture / Unknown 02/07/2025 9:15 AM EDT 02/07/2025 9:15 AM EDT us Ernst Avila MD LAB BLOOD ORDERABLES Final Res ult [facility] [address] [place] [address] * Lipid panel (02/07/2025 9:15 AM EDT) Cholesterol, Plasma 150 <200 mg/dL 02/07/2025 12:15 PM EDT [facility] Comment: Cholesterol Reference Range (age >17 [...] Cholesterol/HDL Ratio 2 02/07/2025 12:15 PM EDT [facility] LDL, Calculated 64 <100 mg/dL 12:15 PM EDT [facility] Comment: LDL Cholesterol Reference Range (age [...] 12 hours? Unknown 02/07/2025 12:15 PM EDT [facility] Blood Venous blood specimen / Unknown Venipuncture / Unknown 02/07/2025 9:15 AM EDT 02/07/2025 9:15 AM EDT us Ernst Avila MD LAB BLOOD ORDERABLES Final Res ult [facility] [address] [place] [address] * Hemoglobin A1c (02/07/2025 9:15 AM EDT) Hemoglobin A1c 5.6 <5.7 % 02/07/2025 2:19 PM EDT [facility] Blood Venous blood specimen / Unknown Venipuncture / Unknown 02/07/2025 9:15 AM EDT 02/07/2025 9:15 AM EDT Narrative [facility] - 02/07/2025 2:19 PM EDT HA1C Interpretive Data: Diagnosis of Diabetes: Diabetic > or = 6.5% Pre-diabetic 5.7 to 6.4% Non-diabetic < or = 5.6% Glycemic Targets for Type I and Type II Diabetics: Non- Adults <7.0% Adults <6.0% Children and Adolescents <7.5% Source: [place] [employer]. Standards of medical care in diabetes,2017. Diabetes Care.2017:40 (suppl 1):S1-S135. Result Harman Avila MD LAB BLOOD ORDERABLES Final Res ult Performing Organization Address City/[facility]/ZIP Co de Phone Number [facility] [address] [place] [address] * Creatine Kinase (CK), Total (02/07/2025 9:15 AM EDT) Creatine Kinase, Plasma 155 37 - 168 U/L 02/07/2025 12:15 PM EDT [facility] Blood Venous blood specimen / Unknown Venipuncture / Unknown 02/07/2025 9:15 AM EDT 02/07/2025 9:15 AM EDT Result Harman Avila MD LAB BLOOD ORDERABLES Final Res ult [facility] [address] [place] [address] * TSH Reflex FT4 (02/07/2025 9:15 AM EDT) Thyroid Stimulating Hormone, Plasma 2.42 0.40 - 4.20 uIU/mL 02/07/2025 12:15 PM EDT [facility] Blood Venous blood specimen / Unknown Venipuncture / Unknown 02/07/2025 9:15 AM EDT 02/07/2025 9:15 AM EDT us Ernst Avila MD LAB BLOOD ORDERABLES Final Res ult [facility] [address] [place] [address] * (ABNORMAL) Comprehensive metabolic panel (02/07/2025 9:15 AM EDT) Glucose, Plasma 79 74 - 99 mg/dL 02/07/2025 12:15 PM EDT [facility] BUN, Plasma 11 8 - 23 mg/dL 02/07/2025 12:15 PM EDT [facility] Creatinine, Plasma 0.69 0.60 - 1.10 mg/dL 02/07/2025 12:15 PM EDT [facility] BUN/Creatinine Ratio 16 02/07/2025 12:15 PM EDT [facility] Sodium, Plasma 135(L) 136 - 145 mmol/L 02/07/2025 12:15 PM EDT [facility] Potassium, Plasma 4.5 3.6 - 4.9 mmol/L 02/07/2025 12:15 PM EDT [facility] Chloride, Plasma 104 97 - 107 mmol/L 02/07/2025 12:15 PM EDT [facility] CO2, Plasma 22 22 - 29 mmol/L 02/07/2025 12:15 PM EDT [facility] Anion Gap 9 6 - 16 mmol/L 02/07/2025 12:15 PM EDT [facility] Total Calcium, Plasma 9.3 8.9 - 10.2 mg/dL 02/07/2025 12:15 PM EDT [facility] Total Protein 7.1 6.3 - 7.9 g/dL 02/07/2025 12:15 PM EDT [facility] Albumin, Plasma 4.2 3.5 - 5.2 g/dL 02/07/2025 12:15 PM EDT [facility] AST, Plasma 30 10 - 35 U/L 02/07/2025 12:15 PM EDT [facility] ALT, Plasma 17 10 - 35 U/L 02/07/2025 12:15 PM EDT [facility] Alkaline Phosphatase, Plasma 90 46 - 142 U/L 02/07/2025 12:15 PM EDT [facility] Total Bilirubin, Plasma 0.3 0.2 - 1.1 mg/dL 02/07/2025 12:15 PM EDT [facility] eGFRcr 95.3 mL/min/1.7 3m*2 02/07/2025 12:15 PM EDT [facility] Comment:Reported eGFRcr in m L/min/1.73m2 is based the CKD-EPI 2020 equation that does not use a race coefficient. Blood Venous blood specimen / Unknown Venipuncture / Unknown 02/07/2025 9:15 AM EDT 02/07/2025 9:15 AM EDT us Ernst Avila MD LAB BLOOD ORDERABLES Final Res ult [facility] [address] [place], [place] [id number] * (ABNORMAL) CBC and differential (02/07/2025 9:15 AM EDT) WBC Count 8.22 3.70 - 10.30 10*3/uL LAB HEMATOLOGY METHOD 02/07/2025 11:37 AM EDT [facility] RBC Count 4.44 3.90 - 5.20 10*6/uL LAB HEMATOLOGY METHOD 02/07/2025 11:37 AM EDT [facility] HGB 13.6 11.2 - 15.7 g/dL LAB HEMATOLOGY METHOD 02/07/2025 11:37 AM EDT [facility] HCT 42.2 34.0 - 45.0 % LAB HEMATOLOGY METHOD 02/07/2025 11:37 AM EDT [facility] Platelet Count 299 155 - 369 10*3/uL LAB HEMATOLOGY METHOD 02/07/2025 11:37 AM EDT [facility] MCV 95 79 - 98 fL LAB HEMATOLOGY METHOD 02/07/2025 11:37 AM EDT [facility] MCH 30.6 26.0 - 32.0 pg LAB HEMATOLOGY METHOD 02/07/2025 11:37 AM EDT [facility] MCHC 32.2 30.7 - 35.5 g/dL LAB HEMATOLOGY METHOD 02/07/2025 11:37 AM EDT [facility] RDW 14.3 11.5 - 14.5 % LAB HEMATOLOGY METHOD 02/07/2025 11:37 AM EDT [facility] MPV 9.3 8.8 - 12.5 fL LAB HEMATOLOGY METHOD 02/07/2025 11:37 AM EDT [facility] nRBC 0.0 <=0.0 per 100 WBCs LAB HEMATOLOGY METHOD 02/07/2025 11:37 AM EDT [facility] Differential Type Automated LAB HEMATOLOGY METHOD 02/07/2025 11:37 AM EDT [facility] Neutrophils % 53 % LAB HEMATOLOGY METHOD 02/07/2025 11:37 AM EDT [facility] Lymphocytes % 37 % LAB HEMATOLOGY METHOD 02/07/2025 11:37 AM EDT [facility] Monocytes % 7 % LAB HEMATOLOGY METHOD 02/07/2025 11:37 AM EDT [facility] Eosinophils % 2 % LAB HEMATOLOGY METHOD 02/07/2025 11:37 AM EDT [facility] Basophils % 1 % LAB HEMATOLOGY METHOD 02/07/2025 11:37 AM EDT [facility] Immature Granulocytes % 0 % LAB HEMATOLOGY METHOD 02/07/2025 11:37 AM EDT [facility] Neutrophils Absolute 4.30 1.60 - 6.10 10*3/uL LAB HEMATOLOGY METHOD 02/07/2025 11:37 AM EDT [facility] Lymphocytes Absolute 3.04 1.20 - 3.90 10*3/uL LAB HEMATOLOGY METHOD 02/07/2025 11:37 AM EDT [facility] Monocytes Absolute 0.57 0.30 - 0.90 10*3/uL LAB HEMATOLOGY METHOD 02/07/2025 11:37 AM EDT [facility] Eosinophils Absolute 0.17 0.00 - 0.50 10*3/uL LAB HEMATOLOGY METHOD 02/07/2025 11:37 AM EDT [facility] Basophils Absolute 0.11(H) 0.00 - 0.10 10*3/uL LAB HEMATOLOGY METHOD 02/07/2025 11:37 AM EDT [facility] Immature Granulocytes Absolute 0.03 0.00 - 0.06 10*3/uL LAB HEMATOLOGY METHOD 02/07/2025 11:37 AM EDT [facility] Blood Venous blood specimen / Unknown Venipuncture / Unknown 02/07/2025 9:15 AM EDT 02/07/2025 9:15 AM EDT [facility] - 02/07/2025 11:37 AM EDT Therapeutic decision making should be based on absolute values, rather than percentages. us Ernst Avila MD LAB BLOOD ORDERABLES Final Res ult Performing Organization Address [facility] de Phone Number [facility] [address] [place] [address] * [facility] Unlock Cardiomyopathy adn arrhythmia; Yes; No; Yes; Yes (Order sent with specimen) - Miscellaneous Test (02/07/2025 9:15 AM EDT) Test name [facility] Cardiomyopathy adn arrhythmia 02/21/2025 10:51 AM EDT [facility] Test Result SEE SCANNED REPORT 02/21 10:51 AM EDT [facility] See Scanned Result SEE SCANNED REPORT 02/21/2025 10:51 AM EDT [facility] Blood Venipuncture / Unknown 02/07/2025 9:15 AM EDT 02/07/2025 9:15 AM EDT Ernst Avila MD LAB REF LAB BLOOD AND FLUID OR D Final Result Performing Organization Address [facility] de Phone Number [facility] [address] [place] [address] * ECG Adult (Now - Performed in your clinic) (02/07/2025 8:19 AM EDT) EKG DIAGNOSIS CLASS Abnormal MUSE ECG Ventricular Rate 62 BPM MUSE ECG Atrial Rate 62 BPM MUSE ECG NV Interval 186 ms MUSE ECG QRSD Interval 180 ms MUSE ECG QT Interval 476 ms MUSE ECG QTC Interval 483 ms MUSE ECG P Rohwer 72 degrees MUSE ECG R Rohwer -82 degrees MUSE ECG T Wave Rohwer 90 degrees MUSE ECG Diagnosis Poor data [...] EDT 02/07/2025 3:52 PM EDT us Ernst S Austin MD ECG ORDERABLES Final Result MUSE ECG [...] documented as of this encounter Care Teams Milling General Superintendent Relationship Specialty Start Date End Date Juanita Tay MD [address] [place] [address] PCP - General 02/07/25 Urmila Vital APRN [address] [facility] [address] [facility] [address] [place] [address] Referring Physician 01/29/25 documented as of this encounter
--- OUTSIDE RECORDS SUMMARY | 2025-02-28 09:17 | XMS_ITS | Encounter Summary ---
Author Organization Healthcare Address [address] [place] [address] Care Team Providers Care Separator Operator Name Role Phone Urmila Vital MANAGER GOVERNMENT Unavailable + [phone] Juanita Tay MD Primary Care Provider [phone] Encounter Details Date Type Department Care Team (Late Contact Info) Description 01/01/2025 Orders Only External Location [address] [place] [id number] Urmila Vital, MANAGER GOVERNMENT [address] [place], [place] [id number] Social History Tobacco Use Types Packs/Day Years [...] Appointment [facility] Pulmonary Function Testing [address] [place] [address] 2025 8:00 AM EDT Office Visit [facility] [place] [address], [address] [place] [address] Ernst Avila MD [address] [place] [address] documented as of this encounter [...] on filedocumented in this encounter Care Teams Separator Operator Relationship Specialty Start Date End Date Juantia Tay MD [address] [place] [address] PCP - General 02/07/25 Urmila Vital, MARIBELL [address] [place] [address] Referring Physician 01/29/25 documented as of this encounter
--- OUTSIDE RECORDS SUMMARY | 2025-02-28 09:18 | XMS_ITS | Clinical Summary ---
Author Organization [facility] Address [address] [place] [address] Care Team Providers Care Commercial Front Load Operator Name Role Phone Kurtis Vitalmary Driver WINDOWS SYSTEMS ADMINISTRATOR Unavailable + [phone] Juanita Tay MD Primary Care Provider [phone] Allergies Active Allergy Reactions Criticality Noted Date [...] Department Care Team Description 02/18/2025 Orders Only [facility] [address], 1[address] [place] [address] Harrison Garsia, PharmD 02/18/2025 Orders Only [facility] [address] [place] [address] Kait Vicente, big 6 dealer systolic heart failure (Primary Dx) 02/08/2025 Telephone [facility] [address] [place] [address] Angela Martinez 02/07/2025 8:20 AM EDT Office Visit [facility] [address], [address] [place] [address] Ernst Avila MD Secondary hypertension (Primary Dx); Left ventricular non-compaction cardiomyopathy (CMS/HCC); Chronic systolic heart failure 02/07/2025 Travel 02/01/2025 Telephone [facility] [address] [place] [address] Angela Martinez 01/29/2025 Telephone [facility] [address] [place] [address] Pcp, No 01/16/2025 Orders Only [facility] [address] [address] Lucrecia Campos RN Acute systolic heart failure (CMS/HCC) (Primary Dx) 01/01/2025 Orders Only External Location [address] [place] [address] Urmila Vital APRN 01/01/2025 Orders Only External Location [address] [place] [address] Urmila Vital, MARIBELL from Last [...] Appointment PAV H Pulmonary Function Testing [address] [place] [address] 2025 8:00 AM EDT Office Visit [facility] [place] [address] [facility] [address] [facility], [address] [place] [address] Ernst Avila MD [address] [place] [address] Health Maintenance Due Date Last Done Comments [facility]-Bone Density Scan 1955 [facility]-Hepatitis C Screening 1955 [facility]-Medicare Annual Wellness (AWV) 1955 [facility]-/Child/Adol SDOH Screenings 1955 [facility]- SDOH Screenings 10/25/1975 [facility]-Adult SDOH Screenings 10/25/1975 CT Colonography 2002 Colonoscopy 2002 FIT-DNA 2002 FIT 2002 FOBT 2002 Sigmoidoscopy 2002 [facility]-Colorectal Cancer Screening 2002 Lung Cancer Screening Shared Decision Making 10/25/2007 [facility]-Breast Cancer Screening 10/25/2007 [facility]-Lung Cancer Screening 10/25/2007 [facility]-Zoster Vaccines (1 of 2) 10/25/2007 [facility]-RSV Vaccine: 60+ Years o r (1 - Risk 60-74 years 1-dose series) 2017 [facility]-Pneumococcal Vaccine: 50 + Years (2 of 2 - PCV) 07/13/2019 07/12/2018 LQT-OVQTS-22 Vaccine (2 - season) 2025 01/29/2021 [facility]-Influenza [...] Diagnosis Comments CBC WITH AUTO DIFFERENTIAL Routine 02/14/2025 10:14 AM EDT CBC WITH AUTO DIFFERENTIAL Routine 02/07/2025 9:15 [...] EDT from Last 3 Months Results * CBC and Differential (02/14/2025 10:14 AM EDT) Only the most recent of2 resultswithin the time period is included. Blood Venous blood specimen / Unknown 02/14/2025 10:14 AM EDT [facility] Provider LAB BLOOD ORDERABLES Edited Result - Final * TSH Reflex FT4 (02/07/2025 9:15 AM EDT) Thyroid Stimulating Hormone, Plasma 2.42 0.40 - 4.20 uIU/mL 02/07/2025 12:15 PM EDT [facility] Blood Venous blood specimen / Unknown Venipuncture / Unknown 02/07/2025 9:15 AM EDT 02/07/2025 9:15 AM EDT Ernst Avila MD LAB BLOOD ORDERABLES Final Res ult Performing Organization Address City/[facility] Co de Phone Number [facility] [address] [place] [address] * Creatine Kinase (CK), Total (02/07/2025 9:15 AM EDT) Creatine Kinase, Plasma 155 37 - 168 U/L 02/07/2025 12:15 PM EDT [facility] Blood Venous blood specimen / Unknown Venipuncture / Unknown 02/07/2025 9:15 AM EDT 02/07/2025 9:15 AM EDT Ernst Avila MD LAB BLOOD ORDERABLES Final Res ult Performing Organization Address City/[facility]/ZIP Co de Phone Number [facility] [address] [place] [address] * HIV 1 & 2 Antibody/Antigen Screen (02/07/2025 9:15 AM EDT) HIV 1 & 2 Antibody/Antigen Screen Non Reactive Non Reactive 02/07/2025 12:18 PM EDT [facility] Comment:Screening for HIV 1 & 2 antibodies, and P24 antigen is NONREACTIVE. No confirmatory testing is required. Blood Venous blood specimen / Unknown Venipuncture / Unknown 02/07/2025 9:15 AM EDT 02/07/2025 9:15 AM EDT us Ernst Avila MD LAB BLOOD ORDERABLES Final Res ult Performing Organization Address City/[facility]/ZIP Co de Phone Number [facility] [address] [place] [address] * Invitae Unlock Cardiomyopathy adn arrhythmia; Yes; No; Yes; Yes (Order sent with specimen) - Miscellaneous Test (02/07/2025 9:15 AM EDT) Test name [employer] Unlock Cardiomyopathy adn arrhythmia 02/21/2025 10:[address] [facility] Test Result SEE SCANNED REPORT 02/21 10:51 AM EDT [facility] See Scanned Result SEE SCANNED REPORT 02/21/2025 10:51 AM EDT [facility] Blood Venipuncture / Unknown 02/07/2025 9:15 AM EDT 02/07/2025 9:15 AM EDT us Ernst Avila MD LAB REF LAB BLOOD AND FLUID OR D Final Result Performing Organization Address City/[facility] Co de Phone Number [facility] [address] [place] [address] * Hemoglobin A1c (02/07/2025 9:15 AM EDT) Hemoglobin A1c 5.6 <5.7 % 02/07/2025 2:[address] [facility] Blood Venous blood specimen / Unknown Venipuncture / Unknown 02/07/2025 9:15 AM EDT 02/07/2025 9:[address] [facility] - 02/07/2025 2:19 PM EDT HA1C Interpretive Data: Diagnosis of Diabetes: Diabetic > or = 6.5% Pre-diabetic 5.7 to 6.4% Non-diabetic < or = 5.6% Glycemic Targets for Type I and Type II Diabetics: Non- Adults <7.0% Adults <6.0% Children and Adolescents <7.5% Source: [place] [employer]. Standards of medical care in diabetes,2017. Diabetes Care.2017:40 (suppl 1):S1-S135. us Ernst Avila MD LAB BLOOD ORDERABLES Final Res ult [facility] [address] [place] [address] * Lipid panel (02/07/2025 9:15 AM EDT) [...] Cholesterol/HDL Ratio 2 02/07/2025 12:15 PM EDT [facility] LDL, Calculated 64 <100 mg/dL [...] MD LAB BLOOD ORDERABLES Final Res ult [facility] [address] [place] [address] * (ABNORMAL) Comprehensive metabolic panel (02/07/2025 9:15 AM EDT) Glucose, Plasma 79 74 - 99 mg/dL 02/07/2025 12:15 PM EDT [facility] BUN, Plasma 11 8 - 23 mg/dL 02/07/2025 12:15 PM EDT [facility] Creatinine, Plasma 0.69 0.60 - 1.10 mg/dL 02/07/2025 12:15 PM EDT [facility] BUN/Creatinine Ratio 16 02/07/2025 12:15 PM EDT [facility] Sodium, Plasma 135(L) 136 - 145 mmol/L 02/07/2025 12:15 PM EDT [facility] Potassium, Plasma 4.5 3.6 - 4.9 mmol/L 02/07/2025 12:15 PM EDT [facility] Chloride, Plasma 104 97 - 107 mmol/L 02/07/2025 12:15 PM EDT [facility] CO2, Plasma 22 22 - 29 mmol/L 02/07/2025 12:15 PM EDT [facility] Anion Gap 9 6 - 16 mmol/L 02/07/2025 12:15 PM EDT [facility] Total Calcium, Plasma 9.3 8.9 - 10.2 mg/dL 02/07/2025 12:15 PM EDT [facility] Total Protein 7.1 6.3 - 7.9 g/dL 02/07/2025 12:15 PM EDT [facility] Albumin, Plasma 4.2 3.5 - 5.2 g/dL 02/07/2025 12:15 PM EDT [facility] AST, Plasma 30 10 - 35 U/L 02/07/2025 12:15 PM EDT [facility] ALT, Plasma 17 10 - 35 U/L 02/07/2025 12:15 PM EDT [facility] Alkaline Phosphatase, Plasma 90 46 - 142 U/L 02/07/2025 12:15 PM EDT [facility] Total Bilirubin, Plasma 0.3 0.2 - 1.1 mg/dL 02/07/2025 12:15 PM EDT [facility] eGFRcr 95.3 mL/min/1.7 3m*2 02/07/2025 12:15 PM EDT [facility] Comment:Reported eGFRcr in m L/min/1.73m2 is based the CKD-EPI 2020 equation that does not use a race coefficient. Blood Venous blood specimen / Unknown Venipuncture / Unknown 02/07/2025 9:15 AM EDT 02/07/2025 9:15 AM EDT Ernst Avila MD LAB BLOOD ORDERABLES Final Res ult [facility] [address] [place] [id number] * ECG Adult (Now - Performed in your clinic) (02/07/2025 8:19 AM EDT) EKG DIAGNOSIS CLASS Abnormal MUSE ECG Ventricular Rate 62 BPM MUSE ECG Atrial Rate 62 BPM MUSE ECG OR Interval 186 ms MUSE ECG QRSD Interval 180 ms MUSE ECG QT Interval 476 ms MUSE ECG QTC Interval 483 ms MUSE ECG P [place] 72 degrees MUSE ECG R [place] -82 degrees MUSE ECG T Wave [place] 90 degrees MUSE ECG Diagnosis Poor data quality, interpretation may be adversely affected MUSE ECG Diagnosis MUSE ECG Diagnosis Sinus rhythm with occasional premature ventricular complexes MUSE ECG Diagnosis Left axis deviation MUSE ECG Diagnosis Left bundle branch block MUSE ECG Diagnosis Abnormal ECG MUSE ECG Diagnosis MUSE ECG Diagnosis Confirmed by Jaiden Gomez ([id number]) on 02/07/2025 3:52:48 PM MUSE ECG 02/07/2025 8:19 AM EDT 02/07/2025 3:52 PM EDT us Ernst Avila MD ECG ORDERABLES Final Result MUSE ECG * MR transfer of outside films (01/01/2025 11:05 AM EDT) Anatomical Region Laterality Modality Magnetic Resonan ce 01/01/2025 11:0 5 AM EDT us Urmila Vital WINDOWS SYSTEMS ADMINISTRATOR IMG MRI PROCEDURES Matthieu rosamaria Result - Final * MR ABDOMEN OUTSIDE IMAGES (01/01/2025 11:05 AM EDT) Anatomical Region Laterality Modality Magnetic Resonan ce 01/01/2025 11:0 5 AM EDT us Urmila Vital WINDOWS SYSTEMS ADMINISTRATOR IMG MRI PROCEDURES Matthieu rosamaria Result - Final from Last 3 Months Insurance [employer] MEDICARE Care Teams Commercial Front Load Operator Relationship Specialty Start Date End Date Juanita Tay MD [address] [place] [address] PCP - General 02/07/25 Urmila Vital APRN [address] [facility] [address] [place] [address] Referring Physician 01/29/25
--- OUTSIDE RECORDS SUMMARY | 2025-02-28 09:18 | XMS_ITS | Encounter Summary ---
Author Organization [facility] Address [address] [place] [address] Care Team Providers Care Bulk Clerk Name Role Phone Urmila Vital CLAM GRADER Unavailable + [phone] Juanita Tay MD Primary Care Provider [phone] Encounter Details Date Type Department Care Team (Latest Contact Info) Description 02/07/2025 Travel Social History Tobacco Use Types Packs/Day Years Used Date Smoking Tobacco: Every Day Cigarettes 1 45.1 Started: 02/08/1980 Smokeless Tobacco: Never PHQ-2 Answer [...] Not at all 02/07/2025 8: 15 AM EKYONT Leslie Fuentes RN Feeling bad about yourself - or that you are a failure or have let yourself or your family down Not at all 02/07/2025 8:15 AM KEYONT Leslie Morgan RN Trouble concentrating on thi [...] Appointment PAV H Pulmonary Function Testing [address] [place] [address] 2025 8:00 AM EDT Office Visit [facility] [place] [address] [facility], [address] [place] [address] Ernst Avila MD [address] [place] [address] documented as of this encounter Visit Diagnoses [...] documented as of this encounter Care Teams Bulk Clerk Relationship Specialty Start Date End Date Juanita Tay MD [address] [place] [address] PCP - General 02/07/25 Urmila Vital APRN [address] [facility] [address] [address] Referring Physician 01/29/25 documented as of this encounter
--- OUTSIDE RECORDS SUMMARY | 2025-02-28 09:18 | XMS_ITS | Encounter Summary ---
Author Organization [facility] Address [address] [place] [address] Care Team Providers Care Sericulture Teacher Name Role Phone Urmila Vital LICENSED THERAPIST Unavailable + [phone] Juanita Tay MD Primary Care Provider [phone] Encounter Details Date Type Department Care Team (Late Contact Info) Description 01/29/2025 Telephone [facility] [place] [address] [facility] [place] [address] Pcp, No [address] [place] [address] Social History Tobacco Use Types Packs/Day Years [...] Appointment PAV H Pulmonary Function Testing [address] [place] [address] 2025 8:00 AM EDT Office Visit [facility] [place] [address], [address] [place] [address] Ernst Avila MD [address] [place] [address] documented as of this encounter Visit Diagnoses Not on filedocumented in this encounter Care Teams Sericulture Teacher Relationship Specialty Start Date End Date Juanita Tay MD [address] [place], [place] [id number] PCP - General 02/07/25 Urmila Vital APRN [address] [facility] [address] [facility] 400 [place] [address] Referring Physician 01/29/25 documented as of this encounter
--- OUTSIDE RECORDS SUMMARY | 2025-02-28 09:18 | XMS_ITS | Encounter Summary ---
Author Organization Healthcare Address [address] [place] [address] Care Team Providers Care Vice President Of Human Resources Name Role Phone Urmila Vital SOCIAL MEDIA SR STRATEGY MANAGER Unavailable + [phone] Juanita Tay MD Primary Care Provider [phone] Encounter Details Date Type Department Care Team (Late Contact Info) Description 01/01/2025 Orders Only External Location [address] [place] [address] Urmila Vital, SOCIAL MEDIA SR STRATEGY MANAGER [address] [facility] [address] [place], [place] [id number] Social History Tobacco Use Types Packs/Day Years [...] Appointment PAV H Pulmonary Function Testing [address] [place] [address] 2025 8:00 AM EDT Office Visit [facility] [place] [address] [facility] [facility], [address] [place] [address] Ernst Avila MD [address] [place] [address] documented as of this encounter Procedures Procedure Name Priority Date/Time Associated Diagnosis Comments MR OUTSIDE IMAGES 01/01/2025 11:05 AM EDT documented in this encounter Results * MR transfer of outside films (01/01/2025 11:05 AM EDT) Anatomical Region Laterality Modality Magnetic Resonan ce 01/01/2025 11:0 5 AM EDT Urmila Viatl APRN IMG MRI PROCEDURES Matthieu rosamaria Result - Final documented in this encounter Visit Diagnoses Not on filedocumented in this encounter Care Teams Vice President Of Human Resources Relationship Specialty Start Date End Date Juanita Tay MD [address] [place] [address] PCP - General 02/07/25 Urmila Vital, MARIBELL [address] [facility] [address] [place] [address] Referring Physician 01/29/25 documented as of this encounter
--- OUTSIDE RECORDS SUMMARY | 2025-02-28 09:18 | XMS_ITS | Encounter Summary ---
Author Organization [facility] Address [address] [place] [address] Care Team Providers Care Information Management Officer Name Role Phone Unavailable Primary Care Provider Unavailabl e Reason for Referral * Consultation (Routine) - Closed Specialty Diagnoses / Procedures Referred By Sheeba t Referred To Contact Cardiology Diagnoses Acute systolic heart failure Urmila Vital APRN [address] [facility] [address] [place] [address] Phone: tel: fax: Referral ID Status Reason Start Date Expiration Date V isits Requested Visits Authorized [id number] Closed Specialty Services Required 01/16/2025 07/18/2026 1 1 Scheduling Instructions Heart failure clinic and Genetic testing for LV non compaction cardiomyopathy Encounter Details Date Type Department Care Team (Late st Contact Info) Description 01/16/2025 Orders Only [facility] [place] [address] [facility] [place] [address] Lurcecia Campos, RN [facility] - 6 [facility] Acute systolic heart failure (CMS/HCC) (Primary Dx) [...] Appointment PAV H Pulmonary Function Testing [address] [place] [address] 2025 8:00 AM EDT Office Visit [facility] [place] [address] [facility], [address] [place] [address] Ernst Avila MD [address] [place] [address] Scheduled Referrals Name Type Priority Associated Diagnoses Order Schedule Ambulatory referral to Cardiology Outpatient Referral Routine Acute systolic heart failure (CMS/HCC) Expected: 01/16/2025 (Approximate), Expires: 07/16/2026 documented as of this encounter Visit Diagnoses Diagnosis Acute systolic heart failure- Primary documented in this encounter
--- OUTSIDE RECORDS SUMMARY | 2025-02-28 09:18 | XMS_ITS | Encounter Summary ---
Author Organization [facility] Address [address] [place] [address] Care Team Providers Care Rice Dryer Mechanic Name Role Phone Urmila Vital MANAGER FRENCH Unavailable + [phone] Encounter Details Date Type Department Care Team (Late Contact Info) Description 02/01/2025 Telephone [facility] [place] [address] [place] [address] [place] [address] Social History Tobacco Use Types Packs/Day Years [...] up with patient after appointment. Angela Motta [facility] Nurse Liaison [phone] documented in this encounter Plan of Treatment Upcoming Encounters Date Type Department Care Team (Late st Contact Info) Description 10/09/2025 8:00 AM EDT Appointment PAV H Pulmonary Function Testing [address] [place] [address] 2025 8:00 AM EDT Office Visit [facility] [place] [address] [facility], [address] [place] [address] Ernst Avila MD [address] [place] [address] documented as of this encounter Visit Diagnoses Not on filedocumented in this encounter Care Teams Rice Dryer Mechanic Relationship Specialty Start Date End Date Urmila Vital, MARIBELL [address] [facility] [address] [place], [place] [address] Referring Physician 01/29/25 documented as of this encounter
--- OUTSIDE RECORDS SUMMARY | 2025-02-28 09:18 | XMS_ITS | Encounter Summary ---
Author Organization Healthcare Address [address] [place] [address] Care Team Providers Care Cash Register Mechanic Name Role Phone Kurtis Vitalmary Driver TREE PLANTER Unavailable + [phone] Juanita Tay MD Primary Care Provider [phone] Encounter Details Date Type Department Care Team (Late st Contact Info) Description 02/18/2025 Orders Only [facility] [place] [address] [facility] [place] [address] Kait Vicente, RN - Outpatient Center Chronic [...] Appointment PAV H Pulmonary Function Testing [address] [place] [address] 2025 8:00 AM EDT Office Visit [facility] [place] [address] [facility], [address] [place] [address] Ernst Avila MD [address] [place] [address] Scheduled Orders Name Type Priority [...] documented as of this encounter Care Teams Cash Register Mechanic Relationship Specialty Start Date End Date Juanita Tay MD [address] [place] [address] PCP - General 02/07/25 Urmila Vital, MARIBELL [address] [facility] [address] [place] [address] Referring Physician 01/29/25 documented as of this encounter
--- OUTSIDE RECORDS SUMMARY | 2025-02-28 09:18 | XMS_ITS | Encounter Summary ---
Author Organization [facility] Address [address] [place] [id number] Care Team Providers Care Clam Shucker Name Role Phone Kurtis Vitalmary Driver BOLT MACHINE OPERATOR Unavailable + [phone] Juanita Tay MD Primary Care Provider [phone] Encounter Details Date Type Department Care Team (Late st Contact Info) Description 02/08/2025 Telephone [facility] [place] [address] [place] [address] [place] [address] Social History Tobacco Use Types Packs/Day Years [...] Name:Melissa Murray : 1955 Date:02/08/2025 Affiliate Site: [place] Referring Physician: Evi Clarke/ Seen: Cardiology/Dr. Avila Future scheduling/testing needs: pt does have follow up appt scheduled for October 2025 This [facility] Nurse Liaison contacted Melissa Murray following their appointment on 02/07/2025. Explained Liaison services offered through the [facility]. Inquired about appointment details and if patient had any questions or concerns. Asked patient if they were to have a follow up appointment or testing. Patient denied need for assistance for scheduling at this time. Informed patient thatliaisons are always available should a need/concern arise. Liaison contact information provided. Will follow up in 3 months to ensure continuum of care. Angela Martinez [facility] Nurse Liaison [phone] documented in this encounter Plan of Treatment Upcoming Encounters Date Type Department Care Team (Late st Contact Info) Description 10/09/2025 8:00 AM EDT Appointment PAV H Pulmonary Function Testing [address] [place] [address] 2025 8:00 AM EDT Office Visit [facility] [place] [address] [facility], [address] [place] [address] Ernst Avila MD [address] [place] [address] documented as of this encounter Visit Diagnoses [...] documented as of this encounter Care Teams Clam Shucker Relationship Specialty Start Date End Date Juanita Tay MD [address] [place] [address] PCP - General 02/07/25 Urmila Vital APRN 161 [facility] 400 [place] [address] Referring Physician 01/29/25 documented as of this encounter
--- OUTSIDE RECORDS SUMMARY | 2025-02-28 09:18 | XMS_ITS | Encounter Summary ---
Author Organization Healthcare Address [address] [place] [address] Care Team Providers Care Production Team Advisor Name Role Phone Urmila Vital [place] TEACHER HEARING IMPAIRED Unavailable + [phone] Juanita Tay MD Primary Care Provider [phone] Encounter Details Date Type Department Care Team (Late st Contact Info) Description 02/18/2025 Orders Only [facility] [address], [address] [place] [address] Harrison Garsia, [place] [address] Social History Tobacco Use Types Packs/Day Years [...] Appointment PAV H Pulmonary Function Testing [address] [place] [address] 2025 8:00 AM EDT Office Visit [facility] [place] [address] [facility] [facility], [address] [place] [address] Ernst Avila MD [address] [place] [address] documented as of this encounter [...] documented as of this encounter Care Teams Production Team Advisor Relationship Specialty Start Date End Date Juanita Tay MD [address] [place] [address] PCP - General 02/07/25 Urmila Vital APRN [address] [facility] [address] [place] [address] Referring Physician 01/29/25 documented as of this encounter
[2025-02-28 10:30] LABS: Chloride 102 mmol/L (98-107); Potassium 4.3 mmoL/L (3.5-5.1); Sodium 138 mmol/L (136-145)
[2025-02-28 10:33] LABS: Anion Gap 13.3 mEq/L (5-15); Blood Urea Nitrogen 20 mg/dl (7-17); Carbon Dioxide 27 mmol/L (22.0-30.0); Creatinine,Serum 0.70 mg/dl (0.52-1.04); Estimated Glomerular Filt Rate 83 ml/min (>60); GFR (African American) 101 ML/MIN (>60)
[2025-02-28 10:34] LABS: Calcium 9.2 mg/dl (8.4-10.2); Glucose 78 mg/dl (74-100)
== END 2025-02-28 23:59 | disposition home or self-care (01) ==
LOC: LAB 09:12
PROVIDERS: PCP Nurse Practitioner Family; Visit Provider Physician Assistant
DX: I50.20 Unspecified systolic (congestive) heart failure (principal); R94.31 Abnormal electrocardiogram [ECG] [EKG]
CPT/HCPCS: 36415; 80048

== ENCOUNTER 2025-04-02 12:52 | Outpatient (CLI) | payer MEDICARE, SELFPAY ==
[2025-04-02 14:06] LABS: NT Pro Brain Natriuretic Pep. 2760 pg/mL (0-125)
== END 2025-04-02 23:59 | disposition home or self-care (01) ==
LOC: LAB 12:53
PROVIDERS: PCP Nurse Practitioner Family; Visit Provider Internal Medicine
DX: I50.22 Chronic systolic (congestive) heart failure (principal)
CPT/HCPCS: 36415; 83880

== ENCOUNTER 2025-04-08 09:36 | Outpatient (CLI) | payer MEDICARE, SELFPAY ==
--- OUTSIDE RECORDS SUMMARY | 2025-02-07 07:20 | XMS_ITS | Encounter Summary ---
Author Organization [facility] Address [address] 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 + [phone] Juanita Tay MD Primary Care Provider [phone] Reason for Referral * Consultation (Routine) - Authorized Specialty Diagnoses / Procedures Referred By Contac t Referred To Contact Diagnoses Left ventricular non-compaction cardiomyopathy (CMS/HCC) Chronic systolic heart failure Ernst Avila MD [address] [place] [address] Phone: tel: fax: Referral ID Status Reason Start Date Expiration Date V isits Requested Visits Authorized [id number] Authorized 02/07/2025 08/09/2026 1 1 * Genetic Testing (Routine) - Closed Specialty Diagnoses / Procedures Referred By Contac t Referred To Contact Lab Diagnoses Left ventricular non-compaction cardiomyopathy (CMS/HCC) Procedures [facility] Cardiomyopathy adn arrhythmia; Yes; No; Yes; Yes (Order sent with specimen) - Miscellaneous Test Ernst Avila MD [address] [place] [address] Phone: tel: fax: Referral ID Status Reason Start Date Expiration Date Visits Re quested Visits Authorized [id number] Closed 02/07/2025 08/09/2026 1 1 Reason for Visit * Reason Comments Cardiomyopathy * Consultation (Routine) - Closed Specialty Diagnoses / Procedures Referred By Sheeba irwin Referred To Contact Cardiology Diagnoses Acute systolic heart failure Urmila Vital, MARIBELL [address] [facility] [address] [place] [address] Phone: tel: fax: Referral ID Status Reason Start Date Expiration Date V isits Requested Visits Authorized [id number] Closed Specialty Services Required 01/16/2025 07/18/2026 1 1 Encounter Details Date Type Department Care Team (Latest Contact Info) Description 02/07/2025 8:20 AM EDT Office Visit [facility] [place] [address] [facility], [address] [place] [address] Ernst Avila MD [address] [place] [address] Secondary hypertension (Primary Dx); Left ventricular non-compaction cardiomyopathy (CMS/HCC); Chronic systolic heart failure Social History Tobacco Use Types Packs/Day Years Used Date Smoking Tobacco: Every Day Cigarettes 1 45.2 Started: 02/08/1980 Smokeless Tobacco: Never Tobacco Cessation:Ready to Q uit: No; Counseling Given: Yes PHQ-2 Answer Date Recorded Patient Health Questionnaire-2 Score 0 02/07/2025 PHQ-9 Answer Date Recorded Patient Health Questionnaire-9 Score 0 02/07/2025 AUDIT-C Answer Date Recorded Q1: How often do you have a drink containing alc ohol? Never 02/07/2025 Average Number of Drinks Not on file 025 Frequency of Binge Drinking Not on file 06/2024 Comments No Sex and Gender Information Value Date Recorded Sex Assigned at Not on file Legal Sex Female 7:46 AM EDT Gender Identity Not on file Sexual Orientation Not on file documented as of this encounter Last Filed Vital Signs Vital Sign Reading Time Taken Comments Blood Pressure 111/74 02/07/2025 8:08 AM EDT Pulse 64 02/07/2025 8:08 AM EDT Temperature - - Respiratory Rate - - Oxygen Saturation 98% 02/07/2025 8:08 AM EDT Inhaled Oxygen Concentration - - Weight 68.4 kg (150 lb 12.7 oz) 02/07/2025 8:07 AM EDT Height - - Body Mass Index - - documented in this encounter Functional Status * Over the past 2 weeks, how often have you been bothered by any of the following problems? Question Answer Date of Assessment Author Little interest or pleasure in doing things Not at all 02/07/2025 8:15 AM EDT Leslie Fuentes R N Feeling down, depressed, or hopeless Not at all 02/07/2025 8:15 AM EDT Leslie Fuentes R N Patient Health Questionnaire -2 Score 0 02/07/2025 8:15 AM EDT Leslie Fuentes R N * Question Answer Date of Assessment Author Trouble falling or staying asleep, or sleeping too much Not at all 02/07/2025 8:15 AM KEYONT Leslie Fuentes RN Feeling tired or having sharan le energy Not at all 02/07/2025 8:15 AM EDT Leslie Fuentes, R N Poor appetite or overeating Not at all 02/07/2025 8: 15 AM KEYONT Leslie Fuentes RN Feeling bad about yourself - or that you are a failure or have let yourself or your family down Not at all 02/07/2025 8:15 AM EDT Leslie Morgna RN Trouble concentrating on thi ngs, such as reading the newspaper or watching television Not at all 02/07/2025 8:15 AM EDT Leslie Fuentes, R N Moving or speaking so slowly that other people could have noticed? Or the opposite - being so fidgety or restless that you have been moving around a lot more than usual. Not at all 02/07/2025 8:15 AM KEYONT Leslie Fuentes R N Thoughts that you would be better off or hurting yourself in some way Not at all 02/07/2025 8:15 AM Leslie Kang RN Patient Health Questionnaire -9 Score 0 02/07/2025 8:15 AM EDT Leslei Fuentes, R N * How difficult have these problems made it for you to do your work, take care of things at home, or get along with other people? Answer Date of Assessment Author Not difficult at all 02/07/2025 8:15 AM EDT Leslie Morgan RN documented as of this encounter Miscellaneous Notes * Patient Instructions - Kait Vicente RN - 02/07/2025 8:20 AM EDT -We will call you after reviewing the results of today's labs if we need to make any additional changes. No news is good news. -We will call you after we get the genetic testing back in approx 4 weeks. -Increase Losartan to 50 mg daily. We will recheck labs in 2 weeks. -Your local claims director will schedule you with cardiac rehab. -Scheduling will call to schedule your CPET with your next office visit in October/November. * Progress Notes - Ernst Avila MD - 02/07/2025 8:20 AM EDT Images from the original note were not included. [facility] Heart Failure Clinic Outpatient Visit Date of Service: 02/07/2025 Patient Name Melissa Murray Date of 1955 Encounter Provider: Ernst Avila MD Referring Provider: Urmila Vital APRN Chief Complaint Melissa Murray is a 69 y.o. female presenting for evaluation of left ventricular non-compaction, HFrEF at the request of Urmila Vital APRN . She is here today with her , Geovany. Prior Cardiac and Medical History/History of Present Illness History of Present Illness The patient is a 69-year-old female with history of hypertension, hyperlipidemia, active smoking history presenting for evaluation of left ventricular noncompaction and heart failure with reduced ejection fraction. She was initially seen at [facility] for pre-syncopal events. An echocardiogram showed an LVEF of 10% and exercise stress echo showed ischemic changes. Subsequently, she was admitted to [facility] in 11/2024, where a left heart catheterization revealednormal coronaries. A follow- up cardiac MRI showed an LVEF of 16% and a severely dilated LV with criteria satisfactory for LV noncompaction. She was started on GDMT. She is currently on metoprolol 25 mg daily, losartan 25 mg daily, spironolactone 25 mg daily, and Jardiance 10 mg daily. She was also referred here for consideration of genetic testing. She has been experiencing near-syncopal episodes but reports no syncopal events. She works part-time at a [employer], standing for 4 to 6 hours per shift, and reports feeling tired but not breathless during her shifts. She does not engage in regular exercise or stair climbing. She can walk two blocks on level ground without needing to rest but struggles with uphill walking due to leg discomfort and breathlessness. She also experiences shortness of breath when climbing stairs, a symptom that began approximately 4 to 5 years ago. She has been using a LifeVest since her hospital admission in 11/2024 and is scheduled to receive a defibrillator in 03/2025. She has not been referred for cardiac rehabilitation. She reports no leg swelling, chest pain, orthopnea, PND. SOCIAL HISTORY Occupations: Works part-time at a [employer]. Exercise: No regular exercise; works 4-6 hours a night on her feet at the [employer]. Alcohol: Does not drink alcohol regularly, possibly having one drink a year. Tobacco: Smokes about a pack a day and has been smoking since high school. Recreational Drugs: Does not use any recreational drugs. FAMILY HISTORY - Father: from a gunshot wound in his 60s. - Mother: from general health decline and lifelong depression; age at unknown. - Brother: Schizophrenia, in a longterm. - Half-brother: of a heart attack; age at unknown. - Negative for family history of heart disease. - Negative for any family member dying before the age of 50. - Son and daughter (both in their 40s): No known medical problems. - Three grandchildren and one great-grandchild: No known heart disease. Problem List/Past Medical History - as above Past Surgical History Surgical History[1] Allergies Allergies as of 02/07/2025 (Not on File) Medication List Current Medications[2] Review of Systems ROS - as above Physical Exam Vitals: 02/07/25 0807 02/07/25 0808 BP: 111/74 BP Location: Right arm Patient Position: Sitting Pulse: 64 SpO2: 98% Weight: 68.4 kg (150 lb 12.7 oz) There is no height or weight on file to calculate BMI. Gen: Appears reasonably comfortable and in no acute distress, sitting comfortably HEENT: Mucus membranes moist, oropharynx clear, no scleral icterus Neck: Supple, no lymphadenopathy, no thyromegaly Respiratory: Clear to auscultation bilaterally Cardiovascular: PMI mildly displaced. No RV lift. Jugular venous pressure was noted at 5 cm of water with a negative hepatojugular reflex. A normal rate and regular rhythm was present with normal S1 and S2 without gallops, rubs or murmurs. Extremities were warm and well perfused and pulses were round and full (2+). Gastrointestinal: The abdomen was soft, non-tender/non-distended Musculoskeletal: Moves all extremities, strength grossly intact Extremities: No pitting edema. No significant cyanosis or clubbing Hematologic: No petechiae or purpura Skin: No obvious rashes or lesions Neurological: Grossly intact Lab Results I personally reviewed the following laboratory results: Chemistry No results found for: NA , K , CL , CO2 , BUN , CREATININE , GLU No results found for: CALCIUM , ALKPHOS , AST , ALT , BILITOT No results found for: WBC , RBC , HGB , HCT , MCV , MCH , MCHC , PLT , RDW , NEUTROPCT , LYMPHPCT , MONOPCT , EOSPCT , BASOPCT , NEUTROABS , LYMPHSABS , EOSABS No results found for: TSH DIAGNOSTIC STUDIES - EKG (02/07/25): NSR, LBBB, PVC Echocardiograms - TTE (11/2024): Severe LV dilation (LVEDD 6.98 cm), LVEF 10%, asynchronous septum, normal RV size and function, biatrial dilation, mild MR/AI/TR and trivial pericardial effusion without tamponade Cardiac catheterizations - LHC (12/05/24): Normal coronaries with severely reduced ejection fraction. Normal LVEDP. Other Non-Invasive Imaging - Cardiac MRI (12/2024): Severe LV dilation. Severe reduction in LV systolic function. LVEF = 16% Prominent trabeculations are noted in the distal and apical LV graham. The ratio of non-compacted to trabeculated myocardium to compacted myocardium is approximately 3 (I.e. >2.3) No evidence of LV thrombus The septal LV wall is akinetic Normal RV size with normal RV systolic function. RVEDVi= 53 ml/m2 and RVEF =50.4% No atrial enlargement Mild AI, mild MR, mild TR No CMR evidence of myocardial scarring, infarction or necrosis. No evidence of myocardial edema or inflammation Perfusion analysis demonstrates normal blood flow at rest with no evidence of resting perfusion. Ratio of pulmonary to systemic flow, Qp:Qs ratio = 1.24 (normal < or = 1.2), hemodynamically significant shunt > 1.), demonstrating no evidence of hemodynamically significant shunt Bilateral pulmonary groundglass opacities noted. 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 Theprominent distal and apical trabeculations on CMR meet the Robles criteria for LV non compaction syndrome, with ratio of inner non-compacted to outer compacted myocardium of approximately 3 (I.e. >2.3). Genetic testing is suggested. GDMT per HF guidelines also recommended. - Nuclear Stress Test (11/2024): Large sized predominantly fixed perfusion defect in the anterior, septal, anteroseptal and apical LV graham. There is a small region of reversibility towards the basal to mid anterior LV wall suggestive of partial reversible ischemia. - Carotid duplex (2024) less than 50% bilateral soft plaque disease Genetic Testing - None Impression and Plan: In summary, Melissa Murray is a 69 y.o. female presenting as a new consult for HFrEF, Stage C withLV non-compaction phenotype. Today, the patient appears Euvolemic, Warm and well perfused. LV systolic dysfunction: Severe RV dysfunction: None Etiology: LV non-compaction cardiomyopathy ACC/AHA stage: C NYHA functional class: II Plan: - Continue current medications: metoprolol 25 mg daily, Jardiance 10 mg daily, spironolactone to 25mg daily - Increase losartan to 50 mg daily - Cardiac rehab referral (spoke to Urmila Vital APRN regarding the patient) - CPET with next visit in - Agree with COLOR DEVELOPER-D implantation if her LVEF does not improve. - If she clinically worsens, will reevaluate earlier for LVAD evaluation. - Strongly recommended that she stop smoking. Provided nicotine gum prescriptions. Emphasized that if she needed a heart transplantation, she would not be a candidate if she continues to smoke. Patient verbalized understanding. Also informed her that she could enroll in the smoking cessation study,however, she declined for now. - genetic testing today - CMR reviewed by our advanced cardiac dba and confirms the diagnosis of LVNC. Evidence Based Medical Therapy for Heart Failure: - ACEi/ARB/ARNI: Currently up-titrating - Aldosterone antagonist: Maximally tolerated dose - Beta-maco: Maximally tolerated dose - Digoxin: Not indicated - Hydralazine/Nitrates: Not a candidate due to hypotension - Ivabradine: Not indicated - SGLT2i: Maximally tolerated dose Device Therapy for Heart Failure: - ICD/BiV-PPM/BiV-ICD: Currently up-titrating GDMT prior to repeating TTE and determining candidacy - MitraClip: not indicated - Barostim: currently a COLOR DEVELOPER-D candidate, so not a Barostim candidate - CardioMEMs: not indicated Co-Morbidities Perspective: - Atrial fibrillation: no - CAD: no - Diabetes: no, HbA1C 5.6 - Iron-deficiency anemia: unknown - Lifestyle/weight/BMI: encouraged healthy diet and exercise - Sleep apnea: no - Substance use: active smoker, encouraged cessation Labs: CBC, CMP, CK,HIV, lipid panel, A1C, TSH with reflex T4 , genetic testing Return to clinic in October 2024 or sooner if she has worsening symptoms. I spent 56 minutes in the care of this patient including review of past medical records, updating his/her chart, interpretation of diagnostic testing and discussing diagnosis and current treatment plans. I provided counseling (i.e. importance of exercise, fluid management, medication adherence and follow up etc), as well as coordination of care as detailed above. Verbal consent was obtained to use ambient listening technology to assist in the documentation of the encounter: yes Ernst Avila MD Advanced Heart Failure/Transplant Cardiology [facility] [1] No past surgical history on file. [2] No current outpatient medications on file. No current facility-administered medications for this visit. documented in this encounter Plan of Treatment Upcoming Encounters Date Type Department Care Team (Late st Contact Info) Description 10/09/2025 8:00 AM EDT Appointment [facility] Pulmonary Function Testing [address] [place] [address] 2025 8:00 AM EDT Office Visit [facility] [place] [address], [address] [place] [address] Ernst Avila MD [address] [place] [address] Scheduled Orders Name Type Priority Associated Diagnoses Orde r Schedule Cardiopulmonary Exercise Test PFT Routine Left ventricular non-compaction cardiomyopathy (CMS/HCC) Chronic systolic heart failure (CMS/HCC) Expected: 10/29/2025, Expires: 08/11/2026 CPET ECG PFT Routine Left ventricular non-compaction cardiomyopathy (CMS/HCC) Chronic systolic heart failure (CMS/HCC) 1 Occurrences starting 02/07/2025 until 08/08/2026 N-Terminal Probnp, Plasma Lab Routine Chronic systolic heart failure Ordered: 02/17/2025 Scheduled Referrals Name Type Priority Associated Diagnoses Orde r Schedule Follow Up Cardiology Outpatient Referral Routine Left ventricular non-compaction cardiomyopathy (CMS/HCC) Chronic systolic heart failure (CMS/HCC) Expected: 2025, Expires: 08/08/2026 documented as of this encounter Procedures Procedure Name Priority Date/Time Associated Diagnosis Comments TSH REFLEX FT4 Routine 02/07/2025 9:15 AM EDT Left ventricular non-compaction cardiomyopathy (CMS/HCC) HIV 1/2 ANTIBODY/ANTIGEN SCREEN W/REFLEX TO HIV 1/2 ANTIBODY DIFFERENTIATION Routine 02/07/2025 9:15 AM EDT Left ventricular non-compaction cardiomyopathy (CMS/HCC) CREATINE KINASE, TOTAL, PLASMA Routine 02/07/2025 9:15 AM EDT Left ventricular non-compaction cardiomyopathy (CMS/HCC) HIV 1/2 ANTIBODY/ANTIGEN SCREEN WITH REFLEX TO HIV I/II DIFFERENTIATION Routine 02/07/2025 9:15 AM EDT Left ventricular non-compaction cardiomyopathy (CMS/HCC) MISCELLANEOUS LAB TEST (SO) Routine 02/07/2025 9:15 AM EDT Left ventricular non-compaction cardiomyopathy (CMS/HCC) CBC WITH AUTO DIFFERENTIAL Routine 02/07/2025 9:15 AM EDT Left ventricular non-compaction cardiomyopathy (CMS/HCC) HEMOGLOBIN A1C Routine 02/07/2025 9:15 AM EDT Left ventricular non-compaction cardiomyopathy (CMS/HCC) LIPID PROFILE, PLASMA Routine 02/07/2025 9:15 AM EDT Left ventricular non-compaction cardiomyopathy (CMS/HCC) COMPREHENSIVE METABOLIC PANEL, PLASMA Routine 02/07/2025 9:15 AM EDT Left ventricular non-compaction cardiomyopathy (CMS/HCC) ECG ADULT Routine 02/07/2025 8:19 AM EDT Secondary hypertension documented in this encounter Results * HIV 1 & 2 Antibody/Antigen Screen (02/07/2025 9:15 AM EDT) Pathologist [facility] HIV 1 & 2 Antibody/Antigen Screen Non Reactive Non Reactive 02/07/2025 12:18 PM EDT [facility] Comment:Screening for HIV 1 & 2 antibodies, and P24 antigen is NONREACTIVE. No confirmatory testing is required. Blood Venous blood specimen / Unknown Venipuncture / Unknown 02/07/2025 9:15 AM EDT 02/07/2025 9:15 AM EDT us Ernst Avila MD LAB BLOOD ORDERABLES Final Res ult [facility] [address] [place] [address] * Lipid panel (02/07/2025 9:15 AM EDT) Pathologist [facility] Cholesterol, Plasma 150 <200 mg/dL 02/07/2025 12:15 PM EDT [facility] Comment: Cholesterol Reference Range (age >17 years): Desirable <200 mg/dL Borderline 200 to 239 mg/dL Undesirable >239 mg/dL HDL 66 >=50 mg/dL 02/07/2025 12:15 PM EDT [facility] Comment: HDL Cholesterol Reference Ranges (age >17 years): Female, acceptable > or = 50 mg/dL Male, acceptable > or = 40 mg/dL Triglycerides, Plasma 110 <150 mg/dL 02/07/2025 12:15 PM EDT [facility] Comment: Triglyceride Reference Range (age >17 years): Desirable: <150 mg/dL Borderline high: 150 to 199 mg/dL High: 200 to 499 mg/dL Very high: >499 mg/dL Increased risk of pancreatitis: >1000 mg/dL Cholesterol/HDL Ratio 2 02/07/2025 12:15 PM EDT [facility] LDL, Calculated 64 <100 mg/dL 12:15 PM EDT [facility] Comment: LDL Cholesterol Reference Range (age >17 years): Optimal: <100 mg/dL Near or above optimal: 100 - 129 mg/dL Borderline high: 130 - 159 mg/dL High: 160 - 189 mg/dL Very high: >189 mg/dL LDL Cholesterol Reference Range (age <18 years): Desirable: <110 mg/dL Borderline: 110 - 129 mg/dL Undesirable: >130 mg/dL LDL Cholesterol is calculated using the Moore/NIH equation. Fasting greater than or equal to 12 hours? Unknown 02/07/2025 12:15 PM EDT [facility] Blood Venous blood specimen / Unknown Venipuncture / Unknown 02/07/2025 9:15 AM EDT 02/07/2025 9:15 AM EDT us Ernst Avila MD LAB BLOOD ORDERABLES Final Res ult [facility] [address] [place] [id number] * Hemoglobin A1c (02/07/2025 9:15 AM EDT) Hemoglobin A1c 5.6 <5.7 % 02/07/2025 2:19 PM EDT [facility] Blood Venous blood specimen / Unknown Venipuncture / Unknown 02/07/2025 9:15 AM EDT 02/07/2025 9:15 AM EDT Narrative [facility] - 02/07/2025 2:19 PM EDT HA1C Interpretive Data: Diagnosis of Diabetes: Diabetic > or = 6.5% Pre-diabetic 5.7 to 6.4% Non-diabetic < or = 5.6% Glycemic Targets for Type I and Type II Diabetics: Non- Adults <7.0% Adults <6.0% Children and Adolescents <7.5% Source: [place] [employer]. Standards of medical care in diabetes,2017. Diabetes Care.2017:40 (suppl 1):S1-S135. us Ernst Avila MD LAB BLOOD ORDERABLES Final Res ult Performing Organization Address City/[facility]/ZIP Co de Phone Number [facility] [address] [place] [address] * Creatine Kinase (CK), Total (02/07/2025 9:15 AM EDT) Creatine Kinase, Plasma 155 37 - 168 U/L 02/07/2025 12:15 PM EDT [facility] Blood Venous blood specimen / Unknown Venipuncture / Unknown 02/07/2025 9:15 AM EDT 02/07/2025 9:15 AM EDT us Ernst Avila MD LAB BLOOD ORDERABLES Final Res ult Performing Organization Address City/[facility]/ZIP Co de Phone Number [facility] [address] [place] [address] * TSH Reflex FT4 (02/07/2025 9:15 AM EDT) Thyroid Stimulating Hormone, Plasma 2.42 0.40 - 4.20 uIU/mL 02/07/2025 12:15 PM EDT [facility] Blood Venous blood specimen / Unknown Venipuncture / Unknown 02/07/2025 9:15 AM EDT 02/07/2025 9:15 AM EDT us Ernst Avila MD LAB BLOOD ORDERABLES Final Res ult [facility] [address] [place] [address] * (ABNORMAL) Comprehensive metabolic panel (02/07/2025 9:15 AM EDT) Glucose, Plasma 79 74 - 99 mg/dL 02/07/2025 12:15 PM EDT [facility] BUN, Plasma 11 8 - 23 mg/dL 02/07/2025 12:15 PM EDT [facility] Creatinine, Plasma 0.69 0.60 - 1.10 mg/dL 02/07/2025 12:15 PM EDT [facility] BUN/Creatinine Ratio 16 02/07/2025 12:15 PM EDT [facility] Sodium, Plasma 135(L) 136 - 145 mmol/L 02/07/2025 12:15 PM EDT [facility] Potassium, Plasma 4.5 3.6 - 4.9 mmol/L 02/07/2025 12:15 PM EDT [facility] Chloride, Plasma 104 97 - 107 mmol/L 02/07/2025 12:15 PM EDT [facility] CO2, Plasma 22 22 - 29 mmol/L 02/07/2025 12:15 PM EDT [facility] Anion Gap 9 6 - 16 mmol/L 02/07/2025 12:15 PM EDT [facility] Total Calcium, Plasma 9.3 8.9 - 10.2 mg/dL 02/07/2025 12:15 PM EDT [facility] Total Protein 7.1 6.3 - 7.9 g/dL 02/07/2025 12:15 PM EDT [facility] Albumin, Plasma 4.2 3.5 - 5.2 g/dL 02/07/2025 12:15 PM EDT [facility] AST, Plasma 30 10 - 35 U/L 02/07/2025 12:15 PM EDT [facility] ALT, Plasma 17 10 - 35 U/L 02/07/2025 12:15 PM EDT [facility] Alkaline Phosphatase, Plasma 90 46 - 142 U/L 02/07/2025 12:15 PM EDT [facility] Total Bilirubin, Plasma 0.3 0.2 - 1.1 mg/dL 02/07/2025 12:15 PM EDT [facility] eGFRcr 95.3 mL/min/1.7 3m*2 02/07/2025 12:15 PM EDT [facility] Comment:Reported eGFRcr in m L/min/1.73m2 is based the CKD-EPI 2020 equation that does not use a race coefficient. Blood Venous blood specimen / Unknown Venipuncture / Unknown 02/07/2025 9:15 AM EDT 02/07/2025 9:15 AM EDT us Ernst Avila MD LAB BLOOD ORDERABLES Final Res ult [facility] [address] [place] [id number] * (ABNORMAL) CBC and differential (02/07/2025 9:15 AM EDT) WBC Count 8.22 3.70 - 10.30 10*3/uL LAB HEMATOLOGY METHOD 02/07/2025 11:37 AM EDT [facility] RBC Count 4.44 3.90 - 5.20 10*6/uL LAB HEMATOLOGY METHOD 02/07/2025 11:37 AM EDT [facility] HGB 13.6 11.2 - 15.7 g/dL LAB HEMATOLOGY METHOD 02/07/2025 11:37 AM EDT [facility] HCT 42.2 34.0 - 45.0 % LAB HEMATOLOGY METHOD 02/07/2025 11:37 AM EDT [facility] Platelet Count 299 155 - 369 10*3/uL LAB HEMATOLOGY METHOD 02/07/2025 11:37 AM EDT [facility] MCV 95 79 - 98 fL LAB HEMATOLOGY METHOD 02/07/2025 11:37 AM EDT [facility] MCH 30.6 26.0 - 32.0 pg LAB HEMATOLOGY METHOD 02/07/2025 11:37 AM EDT [facility] MCHC 32.2 30.7 - 35.5 g/dL LAB HEMATOLOGY METHOD 02/07/2025 11:37 AM EDT [facility] RDW 14.3 11.5 - 14.5 % LAB HEMATOLOGY METHOD 02/07/2025 11:37 AM EDT [facility] MPV 9.3 8.8 - 12.5 fL LAB HEMATOLOGY METHOD 02/07/2025 11:37 AM EDT [facility] nRBC 0.0 <=0.0 per 100 WBCs LAB HEMATOLOGY METHOD 02/07/2025 11:37 AM EDT [facility] Differential Type Automated LAB HEMATOLOGY METHOD 02/07/2025 11:37 AM EDT [facility] Neutrophils % 53 % LAB HEMATOLOGY METHOD 02/07/2025 11:37 AM EDT [facility] Lymphocytes % 37 % LAB HEMATOLOGY METHOD 02/07/2025 11:37 AM EDT [facility] Monocytes % 7 % LAB HEMATOLOGY METHOD 02/07/2025 11:37 AM EDT [facility] Eosinophils % 2 % LAB HEMATOLOGY METHOD 02/07/2025 11:37 AM EDT [facility] Basophils % 1 % LAB HEMATOLOGY METHOD 02/07/2025 11:37 AM EDT [facility] Immature Granulocytes % 0 % LAB HEMATOLOGY METHOD 02/07/2025 11:37 AM EDT [facility] Neutrophils Absolute 4.30 1.60 - 6.10 10*3/uL LAB HEMATOLOGY METHOD 02/07/2025 11:37 AM EDT [facility] Lymphocytes Absolute 3.04 1.20 - 3.90 10*3/uL LAB HEMATOLOGY METHOD 02/07/2025 11:37 AM EDT [facility] Monocytes Absolute 0.57 0.30 - 0.90 10*3/uL LAB HEMATOLOGY METHOD 02/07/2025 11:37 AM EDT [facility] Eosinophils Absolute 0.17 0.00 - 0.50 10*3/uL LAB HEMATOLOGY METHOD 02/07/2025 11:37 AM EDT [facility] Basophils Absolute 0.11(H) 0.00 - 0.10 10*3/uL LAB HEMATOLOGY METHOD 02/07/2025 11:37 AM EDT [facility] Immature Granulocytes Absolute 0.03 0.00 - 0.06 10*3/uL LAB HEMATOLOGY METHOD 02/07/2025 11:37 AM EDT [facility] Blood Venous blood specimen / Unknown Venipuncture / Unknown 02/07/2025 9:15 AM EDT 02/07/2025 9:15 AM EDT [facility] - 02/07/2025 11:37 AM EDT Therapeutic decision making should be based on absolute values, rather than percentages. us Ernst Avila MD LAB BLOOD ORDERABLES Final Res ult Performing Organization Address [facility] Co de Phone Number [facility] [address] [place] [address] * [facility] Un[facility] Cardiomyopathy adn arrhythmia; Yes; No; Yes; Yes (Order sent with specimen) - Miscellaneous Test (02/07/2025 9:15 AM EDT) Test name [employer] Un[facility] Cardiomyopathy adn arrhythmia 02/21/2025 10:51 AM EDT [facility] Test Result SEE SCANNED REPORT 02/21 10:51 AM EDT [facility] See Scanned Result SEE SCANNED REPORT 02/21/2025 10:51 AM EDT [facility] Blood Venipuncture / Unknown 02/07/2025 9:15 AM EDT 02/07/2025 9:15 AM EDT Ernst Avila MD LAB REF LAB BLOOD AND FLUID OR D Final Result Performing Organization Address [facility] Co de Phone Number [facility] [address] [place] [address] * ECG Adult (Now - Performed in your clinic) (02/07/2025 8:19 AM EDT) EKG DIAGNOSIS CLASS Abnormal MUSE ECG Ventricular Rate 62 BPM MUSE ECG Atrial Rate 62 BPM MUSE ECG [place] Interval 186 ms MUSE ECG QRSD Interval 180 ms MUSE ECG QT Interval 476 ms MUSE ECG QTC Interval 483 ms MUSE ECG P [place] 72 degrees MUSE ECG R [place] -82 degrees MUSE ECG T Wave [place] 90 degrees MUSE ECG Diagnosis Poor data quality, interpretation may be adversely affected MUSE ECG Diagnosis MUSE ECG Diagnosis Sinus rhythm with occasional premature ventricular complexes MUSE ECG Diagnosis Left axis deviation MUSE ECG Diagnosis Left bundle branch block MUSE ECG Diagnosis Abnormal ECG MUSE ECG Diagnosis MUSE ECG Diagnosis Confirmed by Jaiden Gomez ([id number]) on 02/07/2025 3:52:48 PM MUSE ECG 02/07/2025 8:19 AM EDT 02/07/2025 3:52 PM EDT us Ernst Avila MD ECG ORDERABLES Final Result MUSE ECG documented in this encounter Visit Diagnoses Diagnosis Secondary hypertension- Primary Other secondary hypertension, unspecified Left ventricular non-compaction cardiomyopathy (CMS/HCC) Chronic systolic heart failure documented in this encounter Additional Health Concerns Assessment Noted Time PHQ-9 Depression Total Score: 0 02/08/20 8:15 AM EDT A fall risk assessment has been complete d for the patient 02/07/2025 8:16 AM EDT A Body Mass Index follow-up plan has been documented for the patient 02/07/2025 9:34 AM EDT documented as of this encounter Care Teams Business Team Leader Relationship Specialty Start Date End Date Juanita Tay MD [address] [place] [address] PCP - General 02/07/25 Urmila Vital, MARIBELL [address] [facility] [address] [facility] [address] [place] [address] Referring Physician 01/29/25 documented as of this encounter
--- NOTE | 2025-04-08 09:30 | CA_ITS ---
APPROVED REPORT EXAM: Limited 2D Echocardiogram Orthopedic Tech: Haven Daily RT(R) Ht: 5 ft 5 in Wt: 143lbs BSA: 1.72 BP: 111/72 mmHg Indications: HFrEF, 10% EF echo 11/2024, currently wearing lifevest 2D Dimensions EF AP2 23.6 % GL Strain -6.3 % M-Mode Dimensions RVDd 3.10 cm (0.9-2.6) LVDd 6.24 cm (3.5-5.7) LVDs 5.52 cm (3.5-5.7) IVSd 0.83 cm (0.6-1.1) PWd 0.83 cm (0.6-1.1) EF (Teich) 24.50% FS 11.50% EDV (Teich) 196.90 mL ESV (Teich) 148.70 mL Other Information Study Quality: Fair Conclusion This is a limited TTE to evaluate for LV systolic function. Limited windows are obtained. The left ventricle is severely dilated. There is LV spherical remodeling present. There is normal LV wall thickness present. There is a severe reduction in LV systolic function. LVEF is 10-15%. Compared to prior TTE from 12/04/2024, the LV systolic function is unchanged. Electronically signed by : Karen Valverde MD 04/08/2025 21:54:21
--- OUTSIDE RECORDS SUMMARY | 2025-04-08 09:39 | XMS_ITS | Encounter Summary ---
Author Organization Healthcare Address [address] [place] [address] Care Team Providers Care Gas Inspector Name Role Phone Urmila Vital Villa SERVICE ATTENDANT Unavailable + [phone] Juanita Tay MD Primary Care Provider [phone] Encounter Details Date Type Department Care Team (Late st Contact Info) Description 02/18/2025 [facility] Only [facility] [address], 1st [place] [address] Harrison Garsia, [place] [address] Social History Tobacco Use Types Packs/Day Years Used Date Smoking Tobacco: Every Day Cigarettes 1 45.2 Started: 02/08/1980 Smokeless Tobacco: Never PHQ-2 Answer [...] Appointment PAV H Pulmonary Function Testing [address] [place] [address] 2025 8:00 AM EDT Office Visit [facility] [place] [address] [facility], [address] [place] [address] Ernst Avila MD [address] [place] [address] documented as of this encounter [...] documented as of this encounter Care Teams Gas Inspector Relationship Specialty Start Date End Date Juanita Tay MD [address] [place] [address] PCP - General 02/07/25 Urmila Vital APRN [address] [facility] [address] [place] [address] Referring Physician 01/29/25 documented as of this encounter
--- OUTSIDE RECORDS SUMMARY | 2025-04-08 09:39 | XMS_ITS | Encounter Summary ---
Author Organization Healthcare Address [address] [place] [address] Care Team Providers Care Automobile Service Station Manager Name Role Phone Urmila Vital MASTER RIGGER Unavailable + [phone] Juanita Tay MD Primary Care Provider [phone] Encounter Details Date Type Department Care Team (Late Contact Info) Description 01/01/2025 Orders Only External Location [address] [place] [phone] Urmila Vital, MASTER RIGGER [address] [facility] [address] [place], [place] [id number] Social History Tobacco Use Types Packs/Day Years [...] Appointment PAV H Pulmonary Function Testing [address] [place] [address] 2025 8:00 AM EDT Office Visit [facility] [place] [address] [facility], [address] [place] [address] Ernst Avila MD [address] [place] [address] documented as of this encounter [...] on filedocumented in this encounter Care Teams Automobile Service Station Manager Relationship Specialty Start Date End Date Juanita Tay MD 350 [place] [address] PCP - General 02/07/25 Urmila Vital, MARIBELL [address] [facility] [address] [place] [address] Referring Physician 01/29/25 documented as of this encounter
--- OUTSIDE RECORDS SUMMARY | 2025-04-08 09:39 | XMS_ITS | Encounter Summary ---
Author Organization Healthcare Address [address] [place] [address] Care Team Providers Care Biodiesel Production Associate Name Role Phone Urmila Vital Villa MANAGER TELEMETRY Unavailable + [phone] Juanita Tay MD Primary Care Provider [phone] Reason for Visit * Reason Onset Date Comments HCN Clinical Concern/Question 03/26/2025 Encounter Details Date Type Department Care Team ([facility] st Contact Info) Description 03/26/2025 Telephone [facility] [place] [address] [facility], [address] [address] Ernst Avila MD [address] [place] [address] HCN Clinical Concern/Question Social History Tobacco Use Types Packs/Day Years [...] encounter Miscellaneous Notes * Telephone Encounter - Kait Vicente RN - 03/26/2025 12:58 PM EST Spoke with pt letting her know it's labs to be done to check kidneys after medication changes. Agreed to go to [facility] this week to have it done. Will send MCM once done so we can request results. * Telephone Encounter - Claudia Oliveira Patrizia - 03/26/2025 11:35 AM EST Clinical Concern/Question Reason for Call: Pt received notification that she needs a Metabolic test. She is asking to arrange this and requesting clarification on what this is. Best contact number: [phone] Optimal time of day to reach caller: Additional comments/information from caller: Note: Please do not reply to this message. Follow-up communication and further actions as a result of this message need to be communicated with the patient directly, if the patient is not active onMyChart. If the patient is active on MyChart, they will receive notification of the communication/outcome via [employer]. documented in this encounter Plan of Treatment Upcoming Encounters Date Type Department Care Team ([facility] st Contact Info) Description 10/09/2025 8:00 AM EDT Appointment PAV H Pulmonary Function Testing [address] [place] [address] 2025 8:00 AM EDT Office Visit [facility] [place] [address] [facility], [address] [address] Ernst Avila MD [address] [place] [address] documented as of this encounter [...] documented as of this encounter Care Teams Biodiesel Production Associate Relationship Specialty Start Date End Date Juanita Tay MD [address] [place] [id number] PCP - General 02/07/25 Urmila Vital APRN [address] [facility] 400 [place] [address] Referring Physician 01/29/25 documented as of this encounter
--- OUTSIDE RECORDS SUMMARY | 2025-04-08 09:39 | XMS_ITS | Encounter Summary ---
Author Organization Healthcare Address [address] [place] [address] Care Team Providers Care Oil Boiler Name Role Phone Urmila Vital MEDICAL COLLECTIONS REPRESENTATIVE Unavailable + [phone] Juanita Tay MD Primary Care Provider [phone] Encounter Details Date Type Department Care Team (Late Contact Info) Description 01/01/2025 Orders Only External Location [address] [place] [phone] Urmila Vital, MEDICAL COLLECTIONS REPRESENTATIVE [address] [facility] [address] [place], [place] [id number] Social History Tobacco Use Types Packs/Day Years [...] Appointment PAV H Pulmonary Function Testing [address] [place] [address] 2025 8:00 AM EDT Office Visit [facility] [place] [address] [facility], [address] [place] [address] Ernst Avila MD [address] [place] [address] documented as of this encounter [...] on filedocumented in this encounter Care Teams Oil Boiler Relationship Specialty Start Date End Date Juanita Tay MD 350 [place] [address] PCP - General 02/07/25 Urmila Vital, MARIBELL [address] [facility] [address] [place] [address] Referring Physician 01/29/25 documented as of this encounter
--- OUTSIDE RECORDS SUMMARY | 2025-04-08 09:39 | XMS_ITS | Encounter Summary ---
Author Organization Healthcare Address [address] [place] [address] Care Team Providers Care Client Service Administrator Name Role Phone Urmila Vital REVISING CLERK Unavailable + [phone] Juanita Tay MD Primary Care Provider [phone] Encounter Details Date Type Department Care Team (Late st Contact Info) Description 02/08/2025 Telephone [facility] [place] [address] [place] [address] Angela Martinez [phone] Social History Tobacco Use Types Packs/Day Years [...] up appt scheduled for October 2025 This [facility] Nurse Liaison contacted Melissa Murray following their appointment on 02/07/2025. Explained Liaison services offered through the [facility]. Inquired about appointment details and if patient had any questions or concerns. Asked patient if they were to have a follow up appointment or testing. Patient denied need for assistance for scheduling at this time. Informed patient thatliaisons are always available should a need/concern arise. Liaison contact information provided. Will follow up in 3 months to ensure continuum of care. Angela Martinez [facility] Nurse Liaison [phone] documented in this encounter Plan of Treatment Upcoming Encounters Date Type Department Care Team (Late st Contact Info) Description 10/09/2025 8:00 AM EDT Appointment PAV H Pulmonary Function Testing [address] [place] [address] 2025 8:00 AM EDT Office Visit [facility] [place] [address] [facility], [address] [place] [address] Ernst Avila MD 800 [place] [address] documented as of this encounter Visit Diagnoses [...] documented as of this encounter Care Teams Client Service Administrator Relationship Specialty Start Date End Date Juanita Tay MD [address] [place] [address] PCP - General 02/07/25 Urmila Vital APRN 161 [facility] 400 [place] [address] Referring Physician 01/29/25 documented as of this encounter
--- OUTSIDE RECORDS SUMMARY | 2025-04-08 09:39 | XMS_ITS | Encounter Summary ---
Author Organization [facility] Address [address] [facility] [place] [address] Care Team Providers Care Shoe Repairer Apprentice Name Role Phone Urmila Vital MECHANICAL PROJECT ENGINEER Unavailable + [phone] Juanita Tay MD Primary Care Provider [phone] Encounter Details Date Type Department Care Team [...] way Not at all 02/07/2025 8:15 AM Leslei Kang RN Patient Health Questionnaire -9 Score [...] Appointment PAV H Pulmonary Function Testing [address] [place] [address] 2025 8:00 AM EDT Office Visit [facility] [place] [address] [facility], [address] [place] [address] Ernst Avila MD [address] [place] [address] documented as of this encounter Visit Diagnoses [...] documented as of this encounter Care Teams Shoe Repairer Apprentice Relationship Specialty Start Date End Date Juanita Tay MD 350 [place] [address] PCP - General 02/07/25 Urmila Vital APRN 161 [facility] [address] [address] Referring Physician 01/29/25 documented as of this encounter
--- OUTSIDE RECORDS SUMMARY | 2025-04-08 09:39 | XMS_ITS | Encounter Summary ---
Author Organization Healthcare Address [address] [place] [address] Care Team Providers Care Finish Carpenter Name Role Phone VitalUrmila ELEVATOR TECHNICIAN Unavailable + [phone] Juanita Tay MD Primary Care Provider [phone] Encounter Details Date Type Department Care Team (Late st Contact Info) Description 01/29/2025 Telephone [facility] [place] [address] [facility] [place] [address] Pcp, No 800 [place] [address] Social History Tobacco Use Types Packs/Day Years Used Date Smoking Tobacco: Never Assessed PHQ-2 Answer Date Recorded Patient Health Questionnaire-2 Score 0 02/07/2025 PHQ-9 Answer Date Recorded Patient Health Questionnaire-9 Score 0 02/07/2025 AUDIT-C Answer Date Recorded Q1: How often do you have a drink containing alc ohol? Never 02/07/2025 Average Number of Drinks Not on file 025 Frequency of Binge Drinking Not on file 06/2024 Comments Unknown Sex and Gender Information Value [...] way Not at all 02/07/2025 8:15 AM EDT Leslie Fuentes RN Patient Health Questionnaire -9 [...] Appointment PAV H Pulmonary Function Testing [address] [place] [address] 2025 8:00 AM EDT Office Visit [facility] [place] [address] [facility], [address] [place] [address] Ernst Avila MD [address] [place] [address] documented as of this encounter Visit Diagnoses Not on filedocumented in this encounter Care Teams Finish Carpenter Relationship Specialty Start Date End Date Juanita Tay MD [address] [place] [address] PCP - General 02/07/25 Urmila Vital APRN [address] [facility] [address] [place] [address] Referring Physician 01/29/25 documented as of this encounter
--- OUTSIDE RECORDS SUMMARY | 2025-04-08 09:39 | XMS_ITS | Clinical Summary ---
Author Organization [facility] Address [address] [place] [address] Care Team Providers Care Bench Loom Weaver Name Role Phone Kurtis Vitalmary Driver PERIANESTHESIA NURSE Unavailable + [phone] Juanita Tay MD Primary Care Provider [phone] Allergies Active Allergy Reactions Criticality Noted Date [...] as needed for smoking cessation. 100 each 02/07/2025 Active sacubitril-vals abiola (Entresto) 24-26 MG tablet Take 1 tablet by mouth 2 times a day. 60 tablet 5 02/18/2025 Active Encounters Date Type Department Care Team Description 03/26/2025 Telephone Counts include 234 beds at the [facility] [address] [facility], [address] [place] [address] Ernst Avila MD HCN Clinical Concern/Question 02/18/2025 Orders Only [facility] [address], 1st [place] [address] Harrison Garsia, PharmD 02/18/2025 Orders Only Counts include 234 beds at the [facility] [address] [address] Kait Vicente RN Chronic systolic heart failure (Primary Dx) 02/08/2025 Telephone [facility] [address] [facility]. [address] [address] Angela Martinez 02/07/2025 8:20 AM EDT Office Visit Counts include 234 beds at the [facility] [address] [facility], [address] [place] [address] Ernst Avila MD Secondary hypertension (Primary Dx); Left ventricular non-compaction cardiomyopathy (CMS/HCC); Chronic systolic heart failure 02/07/2025 Travel 02/01/2025 Telephone Counts include 234 beds at the [facility] [address] [facility]. [address] [address] Angela Martinez 01/29/2025 Telephone [facility] [address] [facility]. [address] [address] Pcp, No 01/16/2025 Orders Only Counts include 234 beds at the [facility] [address] [facility] [address] [address] Lucrecia Campos RN Acute systolic heart failure (CMS/HCC) (Primary Dx) from Last 3 Months Social History Tobacco [...] Appointment PAV H Pulmonary Function Testing 800 [place] [address] 2025 8:00 AM EDT Office Visit [facility] [place] [address] [facility], [address] [place] [address] Ernst Avila MD [address] [place] [address] Health Maintenance Due Date Last Done Comments [facility]-Bone Density Scan 1957 [facility]-Hepatitis C Screening 1957 [facility]-Medicare Annual Wellness (AWV) 1957 [facility]-Infant/Child/Adol SDOH Screenings 1957 [facility]- SDOH Screenings 10/25/1975 [facility]-Adult SDOH Screenings 10/25/1975 CT Colonography 2002 Colonoscopy 2002 FIT 2002 FOBT 2002 Sigmoidoscopy 2002 Lung Cancer Screening Shared Decision Making 10/25/2007 [facility]-Breast Cancer Screening 10/25/2007 [facility]-Lung Cancer Screening 10/25/2007 [facility]-Zoster Vaccines (1 of 2) 10/25/2007 [facility]-RSV Vaccine: 60+ Years o r (1 - Risk 60-74 years 1-dose series) 2017 [facility]-Pneumococcal Vaccine: 50 + Years (2 of 2 - PCV) 07/13/2019 07/12/2018 [id number] Vaccine (2 - season) 2025 01/29/2021 [facility]-Influenza Vaccine (#1) 2025 [facility]-Depression Screening 02/07/2026 025, 02/07/2025 FIT-DNA 06/08/2026 06/08/2023 [facility]-Colorectal Cancer Screening 06/08/2026 [facility]-DTaP,Tdap,and Td Vaccine s (2 - Td [...] Routine 02/07/2025 8:19 AM EDT Secondary hypertension from Last 3 Months Results * CBC and Differential (02/14/2025 10:14 AM EDT) Only the most recent of2 resultswithin the time period is included. Blood Venous blood specimen / Unknown 02/14/2025 10:14 AM EDT us Historical Provider LAB BLOOD ORDERABLES Edited Result - Final * TSH Reflex FT4 (02/07/2025 9:15 AM EDT) Thyroid Stimulating Hormone, Plasma 2.42 0.40 - 4.20 uIU/mL 02/07/2025 12:15 PM EDT [facility] Blood Venous blood specimen / Unknown Venipuncture / Unknown 02/07/2025 9:15 AM EDT 02/07/2025 9:15 AM EDT Result Harman Avila MD LAB BLOOD ORDERABLES Final Res ult Performing Organization Address City/[facility] Co de Phone Number [facility] [address] [place] [address] * Creatine Kinase (CK), Total (02/07/2025 9:15 AM EDT) Creatine Kinase, Plasma 155 37 - 168 U/L 02/07/2025 12:15 PM EDT [facility] Blood Venous blood specimen / Unknown Venipuncture / Unknown 02/07/2025 9:15 AM EDT 02/07/2025 9:15 AM EDT us Ernst Avila MD LAB BLOOD ORDERABLES Final Res ult Performing Organization Address [facility] de Phone Number [facility] [address] [place] [address] * HIV 1 & 2 Antibody/Antigen Screen (02/07/2025 9:15 AM EDT) [facility] HIV 1 & 2 Antibody/Antigen Screen Non Reactive Non Reactive 02/07/2025 12:18 PM EDT [facility]ALTH[facility] Comment:Screening for HIV 1 & 2 antibodies, and P24 antigen is NONREACTIVE. No confirmatory testing is required. Blood Venous blood specimen / Unknown Venipuncture / Unknown 02/07/2025 9:15 AM EDT 02/07/2025 9:15 AM EDT Result Harman Avila MD LAB BLOOD ORDERABLES Final Res ult Performing Organization Address City/[facility] Co de Phone Number [facility] [address] [place] [address] * [employer] Unlock Cardiomyopathy adn arrhythmia; Yes; No; Yes; Yes (Order sent with specimen) - Miscellaneous Test (02/07/2025 9:15 AM EDT) Test name Lizzy Unlock Cardiomyopathy adn arrhythmia 02/21/2025 10:51 AM EDT [facility] Test Result SEE SCANNED REPORT 02/21 10:51 AM EDT [facility] See Scanned Result SEE SCANNED REPORT 02/21/2025 10:51 AM EDT [facility] Blood Venipuncture / Unknown 02/07/2025 9:15 AM EDT 02/07/2025 9:15 AM EDT us Ernst Avila MD LAB REF LAB BLOOD AND FLUID OR D Final Result Performing Organization Address [facility] de Phone Number [facility] [address] [place] [address] * Hemoglobin A1c (02/07/2025 9:15 AM EDT) [facility] Hemoglobin A1c 5.6 <5.7 % 02/07/2025 2:19 PM EDT [facility] Blood Venous blood specimen / Unknown Venipuncture / Unknown 02/07/2025 9:15 AM EDT 02/07/2025 9:15 AM EDT Narrative [facility] - 02/07/2025 2:19 PM EDT HA1C Interpretive Data: Diagnosis of Diabetes: Diabetic > or = 6.5% Pre-diabetic 5.7 to 6.4% Non-diabetic < or = 5.6% Glycemic Targets for Type I and Type II Diabetics: Non- Adults <7.0% Adults <6.0% Children and Adolescents <7.5% Source: [place] Diabetes Association. Standards of medical care in diabetes,2017. Diabetes Care.2017:40 (suppl 1):S1-S135. us Ernst Avila MD LAB BLOOD ORDERABLES Final Res ult Performing Organization Address [facility] Co de Phone Number [facility] [address] [place] [address] * Lipid panel (02/07/2025 9:15 AM EDT) [...] 110 <150 mg/dL 02/07/2025 12:15 PM EDT [facility] Comment: Triglyceride Reference Range (age >17 years): Desirable: <150 mg/dL Borderline high: 150 to 199 mg/dL High: 200 to 499 mg/dL Very high: >499 mg/dL Increased risk of pancreatitis: >1000 mg/dL Cholesterol/HDL Ratio 2 02/07/2025 12:15 PM EDT [facility] LDL, Calculated 64 <100 mg/dL 12:15 PM EDT [facility] Comment: LDL Cholesterol Reference Range (age [...] 12 hours? Unknown 02/07/2025 12:15 PM EDT [facility] Blood Venous blood specimen / Unknown Venipuncture / Unknown 02/07/2025 9:15 AM EDT 02/07/2025 9:15 AM EDT us Ernst Avila MD LAB BLOOD ORDERABLES Final Res ult [facility] [address] [place] [address] * (ABNORMAL) Comprehensive metabolic panel (02/07/2025 9:15 AM EDT) Glucose, Plasma 79 74 - 99 mg/dL 02/07/2025 12:15 PM EDT [facility] BUN, Plasma 11 8 - 23 mg/dL 02/07/2025 12:15 PM EDT [facility] Creatinine, Plasma 0.69 0.60 - 1.10 mg/dL 02/07/2025 12:15 PM EDT [facility] BUN/Creatinine Ratio 16 02/07/2025 12:15 PM EDT [facility] Sodium, Plasma 135(L) 136 - 145 mmol/L 02/07/2025 12:15 PM EDT [facility] Potassium, Plasma 4.5 3.6 - 4.9 mmol/L 02/07/2025 12:15 PM EDT [facility] Chloride, Plasma 104 97 - 107 mmol/L 02/07/2025 12:15 PM EDT [facility] CO2, Plasma 22 22 - 29 mmol/L 02/07/2025 12:15 PM EDT [facility] Anion Gap 9 6 - 16 mmol/L 02/07/2025 12:15 PM EDT [facility] Total Calcium, Plasma 9.3 8.9 - 10.2 mg/dL 02/07/2025 12:15 PM EDT [facility] Total Protein 7.1 6.3 - 7.9 g/dL 02/07/2025 12:15 PM EDT [facility] Albumin, Plasma 4.2 3.5 - 5.2 g/dL 02/07/2025 12:15 PM EDT [facility] AST, Plasma 30 10 - 35 U/L 02/07/2025 12:15 PM EDT [facility] ALT, Plasma 17 10 - 35 U/L 02/07/2025 12:15 PM EDT [facility] Alkaline Phosphatase, Plasma 90 46 - 142 U/L 02/07/2025 12:15 PM EDT [facility] Total Bilirubin, Plasma 0.3 0.2 - 1.1 mg/dL 02/07/2025 12:15 PM EDT [facility] eGFRcr 95.3 mL/min/1.7 3m*2 02/07/2025 12:15 PM EDT [facility] Comment:Reported eGFRcr in m L/min/1.73m2 is based the CKD-EPI 2020 equation that does not use a race coefficient. Blood Venous blood specimen / Unknown Venipuncture / Unknown 02/07/2025 9:15 AM EDT 02/07/2025 9:15 AM EDT Ernst Avila MD LAB BLOOD ORDERABLES Final Res ult [facility] [address] [place] [address] * ECG Adult (Now - Performed in your clinic) (02/07/2025 8:19 AM EDT) EKG DIAGNOSIS CLASS Abnormal MUSE ECG Ventricular Rate 62 BPM MUSE ECG Atrial Rate 62 BPM MUSE ECG NV Interval 186 ms MUSE ECG QRSD Interval 180 ms MUSE ECG QT Interval 476 ms MUSE ECG QTC Interval 483 ms MUSE ECG P [place] 72 degrees MUSE ECG R [place] -82 degrees MUSE ECG T Wave [place] 90 degrees MUSE ECG Diagnosis Poor data [...] ECG ORDERABLES Final Result Performing Organization Address City/[facility] Co de Phone Number MUSE ECG from Last 3 Months Insurance [facility] MEDICARE Care Teams Bench Loom Weaver Relationship Specialty Start Date End Date Juanita Tay MD [address] [place] [address] PCP - General 02/07/25 Urmila Vital, MARIBELL 161 [facility] 400 [facility] [address] [place] [id number] Referring Physician 01/29/25
--- OUTSIDE RECORDS SUMMARY | 2025-04-08 09:39 | XMS_ITS | Encounter Summary ---
Author Organization Healthcare Address [address] [place] [address] Care Team Providers Care Histopathologist Name Role Phone Kurtis Vitalmary Driver CONTRACT NEGOTIATOR Unavailable + [phone] Juanita Tay MD Primary Care Provider [phone] Encounter Details Date Type Department Care Team (Late st Contact Info) Description 02/18/2025 Orders Only [facility] [place] [address] [facility] [place] [address] Kait Vicente, RN - Outpatient Center None Chronic systolic heart failure (Primary Dx) Social [...] Appointment PAV H Pulmonary Function Testing 800 [place] [address] 2025 8:00 AM EDT Office Visit [facility] [place] [address] [facility], [address] [place] [address] Ernst Avila MD 800 [place] [address] Scheduled Orders Name Type Priority [...] documented as of this encounter Care Teams Histopathologist Relationship Specialty Start Date End Date Juanita Tay MD [address] [place] [id number] PCP - General 02/07/25 Urmila Vital APRN [address] [facility] [address] [place] [address] Referring Physician 01/29/25 documented as of this encounter
== END 2025-04-08 23:59 | disposition home or self-care (01) ==
LOC: RT 09:36
PROVIDERS: PCP Nurse Practitioner Family; Visit Provider Physician Assistant
DX: I50.21 Acute systolic (congestive) heart failure (principal); R94.31 Abnormal electrocardiogram [ECG] [EKG]
CPT/HCPCS: 93308

== ENCOUNTER 2025-04-19 08:24 | Day surgery (SDC) | payer MEDICARE, SELFPAY ==
[2025-04-19] VITALS (10 sets, daily range): BP systolic 104–152; BP diastolic 54–73; PULSE 73–95; RESP 16–20; TEMP 36.6–37; O2SAT 91–98; BMI 24.5
--- NOTE | 2025-04-19 08:28 | IR_ITS ---
APPROVED REPORT Patient Location: Outpatient Healthcare Administrator: IDALIA Hall RT (R) PROCEDURES 1. Pocket formation for biventricular pacemaker generator with cardiac resynchronization/defibrillator therapy. 2. Placement of atrial sensing and pacing lead into the right atrial appendage. 3. Placement of a right ventricular sensing, pacing and shocking lead in the right ventricular apex. 4. Placement of left ventricular sensing pacing lead via the coronary sinus. 5. Permanent cardiac resynchronization therapy with ICD implantation/biventricular pacemaker. INDICATION Systolic Congestive Heart Failure, ejection <35%, Wide QRS >150ms, [place] Heart Assoication Class 3 Congestive Heart Failure Informed consent was obtained prior to the procedure. COMPLICATIONS NONE Estimated Blood Loss: LESS THAN 10 ML TECHNIQUE 1% Lidocaine with epinephrine used to anesthetized the left anterior aspect of the chest. Scalpel was used to make the initial cutaneous incision while electrocautery was used to dissect down tinto the fascia. The fascia was lifted off the pectoralis muscle and digitally manipulated creating a pocket for the defibrillator. The patient was then placed in Trendelenburg position and the subclavian vein was accessed 3 times via the Selinger technique. A 8 [place] sheath was placed under fluoroscopic guidance into the subclavian vein. The dilator was removed from the sheath. Using fluoroscopic guidance, the ventricular lead was placed into the right ventricular apex, screwed and secured into place. Electronic interrogation proved acceptable thresholds and voltage within the lead. Using 3-0 silk, the ventricular lead was then secured into place and sheath peeled away. Following this, a 9.5 [place] sheath and dilator was then placed over one of the wires while keeping the other wire in place within the subclavian vein. The dilator was removed from the sheath. Using fluoroscopic guidance, contrast was used to visualize the coronary sinus, the left ventricular lead was placed into the coronary sinus. Electronic interrogation proved acceptable thresholds and voltage within the lead. Using 3-0 silk, the left ventricular lead was then secured into place and sheath peeled away.An additional 6 [place] fresh sheath and dilator was placed over the existing wire. Using fluoroscopic guidance, the atrial lead was then placed into the right atrial appendage and screwed and secured in place. Electrical interrogation demonstrated acceptable thresholds and voltage number. The atrial lead was then secured into place using 3-0 silk and sheath peeled away. 1 gram of Ancef was used to flush the pocket. All 3 leads were connected to generator and tested via computer. The defibrillator then secured to the fascia. Monocryl was used to close the subcutaneous layers while ling were used to close the cutaneous layer. A pressure dressing was placed and the patient was transferred to the postop holding area in stable condition for postoperative care. INTERROGATION Generator Model number: Byron HF, [id number] Generator Serial number: [id number] Atrial lead model number: Tendril STS, 52cm, [id number] Atrial lead serial number: [id number] Impedance: 390 ohms Threshold: 1.5V@0.5ms Right Ventricular lead model number: Optisure, 58cm, [id number] Right Ventricular lead serial number: [id number] R-wave: 12mV Impedance: 480 ohms Threshold: 0.75V@0.5ms High voltage: 40 ohms Left Ventricular lead model number: Quartet, 52cm, [id number] Left Ventricular lead serial number: [id number] Impedance: 1060 ohms Threshold: 0.75V@0.5ms D1-2 Pacing Parameters: Mode: DDDR Base/Max Track: 70 ppm / 130 ppm No diaphragmatic stimulation at 10 volts. IMPRESSION 1. Successful Pocket formation for biventricular pacemaker generator with cardiac resynchronization/defibrillator therapy. 2. Successful placement of right atrial sensing and pacing lead into the right atrial appendage. 3. Successful placement of a right ventricular sensing, pacing and shocking lead in the right ventricular apex. 4. Successful placement of left ventricular sensing pacing lead via the coronary sinus. 5. Successful permanent cardiac resynchronization plus AICD generator device. PLAN 1. Postop wound care. Electronically signed by : Gautam Dexter MD 04/19/2025 12:56:31
[2025-04-19 08:57] LABS: Chloride 105 mmol/L (98-107); Hematocrit 44.4 % (37.0-47.0); Hemoglobin 14.9 g/dL (12.2-16.2); Immature Granulocytes % 0.3 %; Mean Corpuscular HGB Conc 33.6 g/dL (31.8-35.4); Mean Corpuscular Hemoglobin 31.6 pg (27.0-31.2); Mean Corpuscular Volume 94.3 fl (81-99); Nucleated Red Blood Cells % 0 %; Platelet Count 288 K/mm3 (142-424); Potassium 3.9 mmoL/L (3.5-5.1); Red Blood Count 4.71 M/mm3 (4.20-5.40); Red Cell Distribution Width-SD 46.7 fL; Sodium 145 mmol/L (136-145); White Blood Count 10.9 K/mm3 (4.8-10.8)
[2025-04-19 09:00] LABS: Anion Gap 15.9 mEq/L (5-15); Blood Urea Nitrogen 14 mg/dl (7-17); Calcium 9.7 mg/dl (8.4-10.2); Carbon Dioxide 28 mmol/L (22.0-30.0); Creatinine Clearance Estimated 56 mL/min (50-200); Creatinine,Serum 0.80 mg/dl (0.52-1.04); Estimated Glomerular Filt Rate 72 ml/min (>60); GFR (African American) 87 ML/MIN (>60); Glucose 79 mg/dl (74-100)
--- NOTE | 2025-04-19 10:38 | EXP.ANES.CKL ---
[facility] Disclaimer: The information contained in this section may have been updated after the patient was seen, as this information can be updated by other users. Medical History Closed fracture of right distal radius Cellulitis of foot Smoker RLS (restless legs syndrome) Tachycardia Abnormal Holter monitor finding Near syncope Hyperlipidemia Nonsustained ventricular tachycardia SVT (supraventricular tachycardia) Arrhythmia Surgical History History of tubal ligation Family History Other No significant family history Social History Smoking Status: Current every day smoker alcohol intake: never substance use type: denies use current occupational status: employed Travel in the last 8 weeks?: None [facility] Anesthesia Checklist Patient Identification Patient Identification: Arm Band Structural Data Admitted From: Home Planned Operative Procedure/s: Biventricular AICD Placement Consent for Planned Operative Procedure(s) Verified: Yes Verified Documents: Surgical Consent and History and Physical NPO Status Verified Time NPO: 00:00 Additional verifications Anesthesia Reactions: No Airway Assessment Mallampati Score:: Class II C-Spine Mobility Assessed: Yes TMJ Mobility Assessed: Yes Dentition: Edentulous Neurological Assessment Level of Consciousness: Awake, Alert and Appropriate Anesthesia Plan Anesthesia Risk discussed: Yes Anesthesia Plan: Verified ASA Class: IV Anesthesia Type: MAC
[2025-04-19] MEDS: CLINDAMYCIN PHOSPHATE/D5W 900 MG/50 ML PIGGYBACK 100 MG IV (11:07)
[2025-04-19] MEDS: LIDOCAINE 1% W/EPI 1:100,000 20ML VIAL 20 ML SQ (11:09)
[2025-04-19] MEDS: 0.9 % SODIUM CHLORIDE 1000ML 1,000 ML 25 ML IV (11:09)
--- NOTE | 2025-04-19 12:19 | XR_ITS ---
FINAL REPORT CLINICAL HISTORY: post AICD placement COMPARISON: None FINDINGS: The heart size is mildly enlarged. Left-sided biventricular AICD is present. The mediastinum is normal. There is no focal infiltrate or edema. Scarring is noted at the lung bases. There are no pleural effusions. There is no pneumothorax. There is no osseous abnormality. IMPRESSION: No acute cardiopulmonary process. Biventricular AICD. Reviewed, Interpreted and Dictated by Trenton Nassar MD Transcribed by Kait Mathew Authenticated and [facility]
--- NOTE | 2025-04-19 12:57 | SUR.PHASEII ---
Pt requesting dose of her requip for restless leg, notified MD of pt request
--- NOTE | 2025-04-19 13:14 | SUR.PHASEII ---
Dr rico stated to give patient her normal dose she takes at home, see mar for order
--- NOTE | 2025-04-19 13:24 | SUR.PHASEII ---
Pt given lunch, family at bedside
--- NOTE | 2025-04-19 13:36 | SUR.PHASEII ---
Gave pt 4mg of requip and when going back in to [place], pt was attempting to put pills in a pill container, stated to pt she cannot do that and must take medications here now and she stated I dont want to take it right now, I want to take it at home Educated pt that she must take it here with us witnessing. Pill discarded in narcs waste bucket, witness with Joe HOLMAN
== END 2025-04-19 13:52 | disposition home or self-care (01) ==
PROVIDERS: PCP Nurse Practitioner Family; Visit Provider Internal Medicine
PROC: 0JH609Z Insertion of Cardiac Resynchronization Defibrillator Pulse Generator into Chest Subcutaneous Tissue and Fascia, Open Approach (ICD-10-PCS; CPT 33249; principal; 2025-04-19 09:00)
DX: I25.5 Ischemic cardiomyopathy (principal); I50.21 Acute systolic (congestive) heart failure; I51.9 Heart disease, unspecified; I42.8 Other cardiomyopathies; R94.31 Abnormal electrocardiogram [ECG] [EKG]; E78.2 Mixed hyperlipidemia; R94.30 Abnormal result of cardiovascular function study, unspecified; G25.81 Restless legs syndrome; F17.210 Nicotine dependence, cigarettes, uncomplicated; Z79.82 Long term (current) use of aspirin; Z79.84 Long term (current) use of oral hypoglycemic drugs; Z79.899 Other long term (current) drug therapy; Z79.83 Long term (current) use of bisphosphonates; Z88.0 Allergy status to penicillin
CPT/HCPCS: 33225; 33249; 71045; 80048; 85025; C1769; C1882; C1895; C1898; C1900; J0736; J2003; J2004; J2704; J7030; Q9967